=== PATIENT | female | born 1945 | race Caucasian/White ===

== ENCOUNTER 2017-01-06 10:58 | Emergency (ER) | payer OTHER ==
[~2017-01-06] VITALS: Ht 162.6 cm; Wt 65.6 kg
[~2017-01-06 10:58] MED LIST: ALBU0.08 INH; DEXL60CA4 PO; DILT180C PO; DSY100 PO; FERR325T PO; FRS/40 PO; GLIP-199 PO; LEVAAER2 INH; META1TAB22 PO; OXYB5TAB74 PO; PRAV40TA2 PO; PREG1CAP70 PO; RSTOPS OPB; SENN-65 PO; TRAM-10 PO; WARF1TAB6 PO
[2017-01-06 11:08] VITALS: TEMP 36.2; Ht 162.6 cm; Wt 65.6 kg
[2017-01-06] MEDS ORDERED: OMEP40CA41 PO (11:54)
[2017-01-06] MEDS ORDERED: ZOPENEX (11:54)
[2017-01-06 11:57] VITALS: O2SAT 98
[2017-01-06 11:59] LABS: BASO % 0.3 %; BASO ABS # 0.03 K/uL (0-0.2); COMPLETE YES; EOS % 0.9 %; HEMATOCRIT 48.1 % (37-47); IG% 0.3 %; LYMPH % 16.9 %; LYMPH ABS # 1.94 K/uL (1.2-3.4); MEAN CELL VOLUME 90.8 fL (80-100); MEAN CORPUSCULAR HEMOGLOBIN 32.3 pg (25-34); MEAN CORPUSCULAR HGB CONC 35.6 g/dl (32-36); MEAN PLATELET VOLUME 10.4 fL (7.4-10.4); MONO % 6.2 %; NEUT % 75.4 %; PLATELET COUNT 323 K/uL (130-400)
[2017-01-06 12:07] LABS: BUN/CREATININE RATIO 24.8 (10-20); CALCIUM 9.4 mg/dl (8.5-10.1); CREATININE 0.69 mg/dl (0.60-1.20); MAGNESIUM 2.1 mg/dl (1.8-2.4); POTASSIUM 3.9 mmol/L (3.5-5.1)
[2017-01-06 12:10] LABS: ALB/GLOB RATIO 1.1 (0.9-2); CKMB/CK RATIO 2.5 (0-3.0)
[2017-01-06] MEDS ORDERED: SODIUM CHLORIDE 0.9% 500ML 500 ML IV STA (12:14)
[2017-01-06] MEDS ORDERED: OPTIRAY 320 IV PRN (12:45)
--- NOTE | 2017-01-06 12:54 | DIAGNOSTIC IMAGING REPORT ---
ABDOMEN 2VIEW W/PA CHEST RTN CLINICAL HISTORY: Epigastric pain, hx pancreatitis pain COMPARISON STUDY: 07/30/2016 FINDINGS: Mild emphysematous change. No acute infiltrate. Pre-existing pulmonary bleb lateral aspect left upper lobe unchanged. Calcification lower pole left kidney unchanged. Postoperative changes low lumbar spine unchanged. Nonobstructive bowel pattern. IMPRESSION: No acute process of the abdomen or pelvis. Electronically signed by: Juan Mcguire M.D. 01/06/2017 12:52 PM Dictated Date/Time: 01/06/2017 12:51 PM
--- NOTE | 2017-01-06 13:12 | DIAGNOSTIC IMAGING REPORT ---
ABDOMEN AND PELVIS CT WITH IV CONTRAST CT DOSE: 285.90 mGy.cm HISTORY: Pain Epigastric abdominal pain TECHNIQUE: Multiaxial CT images of the abdomen and pelvis were performed following the use of intravenous contrast. COMPARISON STUDY: 06/30/2016 FINDINGS: Lung bases are clear. Liver is uniform throughout. Prior cholecystectomy. Graft slight prominence of the pancreatic duct at the level of pancreatic body and tail measuring up to 3.4 mm. Trace peripancreatic infiltrative change. Several renal cortical cysts and a cortical scar is unchanged. Bowel pattern is nonobstructive throughout. Stable postoperative changes to low lumbar spine. Vascular by femoral graft within the anterior soft tissue pelvis appearing to be occluded. This is an unchanged chronic finding. Calcification of the abdominal and pelvic arterial vasculature is similar. IMPRESSION: 1. Stable postoperative changes within the lumbar spine and pelvis. 2. Subtle prominence of the pancreatic duct is mid and distal aspect with a trace amount of peripancreatic infiltrative change. 3. Correlation with pancreatic enzymes status is recommended to exclude low-grade/early pancreatitis. 4. Unchanged 11 millimeter calcification central left kidney Electronically signed by: Juan Mcguire M.D. 01/06/2017 1:11 PM Dictated Date/Time: 01/06/2017 1:06 PM
[2017-01-06 13:36] LABS: URINE APPEARANCE CLEAR (CLEAR); URINE BILIRUBIN NEG (NEG); URINE COLOR YELLOW; URINE NITRITE NEG (NEG); URINE SPECIFIC GRAVITY 1.034 (1.000-1.030); UROBILINOGEN NEG (NEG); ZZUR CULT IF INDIC CLEAN CATCH NO
[2017-01-06 13:39] LABS: MANUAL MICROSCOPIC REQUIRED? NO; REVIEW REQ? NO
[2017-01-06] MEDS ORDERED: OXYCODONE IR HOME PACK PO STA (14:40)
--- NOTE | 2017-01-06 14:42 | EMERGENCY ROOM VISIT NOTE ---
History First contact with patient: 11:35 Chief Complaint: ABDOMINAL PAIN Stated Complaint: PANCREATITIS Nursing Triage Summary: Patient reports upper left quadrant abd pain states it feels like the same pain she had when she was diagnosed with pancreatitis. Denies any n/v/d History of Present Illness The patient is a 71 year old female who presents to the Emergency Room via private vehicle accompanied by male with complaints of "pancreatitis". The patient states that she has a history of pancreatitis and notes that she has been experiencing epigastric pain for the past couple weeks in the upper abdomen. She notes this feels identical to her previous pancreatitis episodes. She has noticed swelling/putting in the epigastric region and increasing pain in the past few days. She rates her pain as a 6/10. She does have a history of 2 myocardial infarctions as well as stroke among other various comorbidities. She denies any chest pain, shortness of breath, nausea, vomiting , diarrhea, urinary symptoms, alcohol use. Review of Systems A complete 10-point Review of Systems was discussed with the patient, with pertinent positives and negatives listed in the History of Present Illness. All remaining Review of Systems questions can be considered negative unless otherwise specified. Past Medical/Surgical History Medical Problems: (1) Asthma (2) Chronic obstructive lung disease (3) Diabetes mellitus (4) GI bleed (5) TIA (transient ischemic attack) Family History Cancer Diabetes mellitus Gallbladder disease Heart disease Hypertension Social History Smoking Status: Current Every Day Smoker Alcohol Use: occasionally Drug Use: none Marital Status: Housing Status: lives with family Occupation Status: retired Current/Historical Medications Scheduled Aspirin (Aspirin), 325 MG PO QAM Canagliflozin (Invokana), 100 MG PO DAILY Cyanocobalamin (Vitamin B-12), 1,000 MCG PO DAILY Diltiazem Hcl Coated Beads (Diltiazem Hcl Er), 180 MG PO BID Ferrous Sulfate (Ferrous Sulfate), 650 MG PO DAILY Glipizide (Glipizide Er), 20 MG PO DAILY Hydralazine Hcl (Apresoline), 25 MG PO BID Labetalol HCl (Labetalol HCl), 100 MG PO BID Omeprazole (Prilosec), 40 MG PO DAILY Pravastatin Sodium (Pravastatin Sodium), 40 MG PO QPM Pregabalin (Lyrica), 150 MG PO BID Trazodone HCl (Trazodone HCl), 50 MG PO HS Warfarin Sod (Jantoven), 6 MG PO SATURDAY Warfarin Sod (Novtoven), 4 MG PO 6XWK Scheduled PRN Cyclosporine (Ophth) (Restasis), 1 DROP OP BID PRN for DRYNESS Diphenoxylate/Atropine (Lomotil 2.5-0.025 mg), 2 TAB PO QID PRN for PRN Furosemide (Lasix), 40 MG PO DAILY PRN for fluid retention Ipratropium-Albuterol (Combivent Respimat), 1 PUFF INH QID PRN for Shortness of Breath Lorazepam (Lorazepam), 0.5 MG PO DAILY PRN for Anxiety Meclizine Hcl (Meclizine Hcl), 25 MG PO DAILY PRN for Dizziness or Vertigo Nitroglycerin (Nitrostat), 0.4 MG UT UD PRN for Chest Pain Oxybutynin Chloride (Ditropan), 5 MG PO PRN PRN for Bladder Pain Senna (Senokot), 2-3 TAB PO DAILY PRN for PRN Tramadol (Ultram), 100 MG PO Q6H PRN for Pain [Zopenex Hfa], Unknown Dose for SOB/Wheezing Allergies Coded Allergies: Calcium Carbonate (Verified Allergy, Intermediate, OYSTER SHELL-ITCHY, HIVES, 01/06/17) Nylon (Verified Allergy, Intermediate, HIVES, 01/06/17) Adhesives (Verified Allergy, Mild, RED ITCHY RASH, NYLON = ITCHY, 01/06/17) Animal Dander (Verified Allergy, Unknown, ASTHMA, 01/06/17) Calcium (Verified Allergy, Unknown, ITCHY, 01/06/17) Montelukast (Verified Allergy, Unknown, ., 01/06/17) Phenobarbital (Verified Allergy, Unknown, DOESN'T REMEMBER WHAT HAPPENED, 01/06/17) Shellfish (Verified Allergy, Unknown, ., 01/06/17) Sulfa Antibiotics (Verified Allergy, Unknown, HIVES/RASH TO SULFA DRUGS, ) Egg (Verified Adverse Reaction, Unknown, SORE THROAT, 01/06/17) Uncoded Allergies: METAL (Adverse Reaction, Intermediate, itchy raw skin burning, 10/29/16) Physical Exam Vital Signs Date Time Temp Pulse Resp B/P Pulse Ox O2 Delivery O2 Flow Rate FiO2 01/06/17 15:29 78 20 134/79 98 Room Air 01/06/17 15:00 72 16 149/72 96 01/06/17 13:05 74 18 149/80 98 Room Air 01/06/17 11:57 98 Room Air 01/06/17 11:08 36.2 73 16 131/80 94 Room Air Physical Exam VITAL SIGNS - Vital signs and nursing notes were reviewed. Patient is afebrile , normotensive, non-tachycardic and saturating well on room air at 94%. GENERAL -71-year-old female appearing her stated age who is in no acute distress. Communicates well with provider and answers questions appropriately. SKIN - Without rashes. HEAD - NC/AT. EYES -PERRL with EOMI bilaterally. Sclera anicteric. Palpebral conjunctiva pink and moist with no injection noted. MOUTH/OROPHARYNX - Without perioral cyanosis. NECK - Neck with FROM. Supple to palpation. No lymphadenopathy noted. No nuchal rigidity. LUNGS - Chest wall symmetric without accessory muscle use, intercostals retractions, or central cyanosis. Normal vesicular breath sounds CTA B/L. No wheezes, rales, or rhonchi appreciated. CARDIAC - RRR with S1/S2. No murmur, rubs, or gallops appreciated. ABDOMEN - Abdominal contour without pulsations or visible masses. BS normoactive all four quadrants. There is pinpoint tenderness to palpation of the epigastric region. No palpable masses, hepatosplenomegaly, or ascites noted. EXTREMITIES - No clubbing or peripheral cyanosis. No pretibial edema present. +5 /5 strength noted in UE/LE bilaterally. Medical Decision & Procedures ER Provider Diagnostic Interpretation: ABDOMEN AND PELVIS CT WITH IV CONTRAST CT DOSE: 285.90 mGy.cm HISTORY: Pain Epigastric abdominal pain TECHNIQUE: Multiaxial CT images of the abdomen and pelvis were performed following the use of intravenous contrast. COMPARISON STUDY: 06/30/2016 FINDINGS: Lung bases are clear. Liver is uniform throughout. Prior cholecystectomy. Graft slight prominence of the pancreatic duct at the level of pancreatic body and tail measuring up to 3.4 mm. Trace peripancreatic infiltrative change. Several renal cortical cysts and a cortical scar is unchanged. Bowel pattern is nonobstructive throughout. Stable postoperative changes to low lumbar spine. Vascular by femoral graft within the anterior soft tissue pelvis appearing to be occluded. This is an unchanged chronic finding. Calcification of the abdominal and pelvic arterial vasculature is similar. IMPRESSION: 1. Stable postoperative changes within the lumbar spine and pelvis. 2. Subtle prominence of the pancreatic duct is mid and distal aspect with a trace amount of peripancreatic infiltrative change. 3. Correlation with pancreatic enzymes status is recommended to exclude low-grade/early pancreatitis. 4. Unchanged 11 millimeter calcification central left kidney Electronically signed by: Juan Mcguire M.D. 01/06/2017 1:11 PM Dictated Date/Time: 01/06/2017 1:06 PM ABDOMEN 2VIEW W/PA CHEST RTN CLINICAL HISTORY: Epigastric pain, hx pancreatitis pain COMPARISON STUDY: 07/30/2016 FINDINGS: Mild emphysematous change. No acute infiltrate. Pre-existing pulmonary bleb lateral aspect left upper lobe unchanged. Calcification lower pole left kidney unchanged. Postoperative changes low lumbar spine unchanged. Nonobstructive bowel pattern. IMPRESSION: No acute process of the abdomen or pelvis. Electronically signed by: Juan Mcguire M.D. 01/06/2017 12:52 PM Dictated Date/Time: 01/06/2017 12:51 PM Laboratory Results 01/06/17 11:30 Red Blood Count 5.30, Mean Corpuscular Volume 90.8, Mean Corpuscular Hemoglobin 32.3, Mean Corpuscular Hemoglobin Concent 35.6, Mean Platelet Volume 10.4, Neutrophils (%) (Auto) 75.4, Lymphocytes (%) (Auto) 16.9, Monocytes (%) (Auto) 6.2, Eosinophils (%) (Auto) 0.9, Basophils (%) (Auto) 0.3, Neutrophils # (Auto) 8.69, Lymphocytes # (Auto) 1.94, Monocytes # (Auto) 0.71, Eosinophils # (Auto) 0.10, Basophils # (Auto) 0.03 01/06/17 11:30 Test 01/06/17 11:30 01/06/17 13:18 01/06/17 14:06 White Blood Count 11.50 K/uL (4.8-10.8) Red Blood Count 5.30 M/uL (4.2-5.4) Hemoglobin 17.1 g/dL (12.0-16.0) Hematocrit 48.1 % (37-47) Mean Corpuscular Volume 90.8 fL (80-100) Mean Corpuscular Hemoglobin 32.3 pg (25-34) Mean Corpuscular Hemoglobin Concent 35.6 g/dl (32-36) Platelet Count 323 K/uL (130-400) Mean Platelet Volume 10.4 fL (7.4-10.4) Neutrophils (%) (Auto) 75.4 % Lymphocytes (%) (Auto) 16.9 % Monocytes (%) (Auto) 6.2 % Eosinophils (%) (Auto) 0.9 % Basophils (%) (Auto) 0.3 % Neutrophils # (Auto) 8.69 K/uL (1.4-6.5) Lymphocytes # (Auto) 1.94 K/uL (1.2-3.4) Monocytes # (Auto) 0.71 K/uL (0.11-0.59) Eosinophils # (Auto) 0.10 K/uL (0-0.5) Basophils # (Auto) 0.03 K/uL (0-0.2) RDW Standard Deviation 43.6 fL (36.4-46.3) RDW Coefficient of Variation 13.4 % (11.5-14.5) Immature Granulocyte % (Auto) 0.3 % Immature Granulocyte # (Auto) 0.03 K/uL (0.00-0.02) Anion Gap 13.0 mmol/L (3-11) Est Creatinine Clear Calc Drug Dose 63.7 ml/min Estimated GFR () 100.8 Estimated GFR (Non- 87.0 BUN/Creatinine Ratio 24.8 (10-20) Calcium Level 9.4 mg/dl (8.5-10.1) Magnesium Level 2.1 mg/dl (1.8-2.4) Total Bilirubin 0.4 mg/dl (0.2-1) Aspartate Amino Transf (AST/SGOT) 17 U/L (15-37) Alanine Aminotransferase (ALT/SGPT) 31 U/L (12-78) Alkaline Phosphatase 99 U/L (45-117) Total Creatine Kinase 108 U/L (26-192) Creatine Kinase MB 2.7 ng/ml (0.5-3.6) Creatine Kinase MB Ratio 2.5 (0-3.0) Pro-B-Type Natriuretic Peptide 181 pg/ml (0-900) Total Protein 7.7 gm/dl (6.4-8.2) Albumin 4.1 gm/dl (3.4-5.0) Globulin 3.6 gm/dl (2.5-4.0) Albumin/Globulin Ratio 1.1 (0.9-2) Amylase Level 41 U/L (25-115) Lipase 294 U/L (73-393) Urine Color YELLOW Urine Appearance CLEAR (CLEAR) Urine pH 5.0 (4.5-7.5) Urine Specific [place] 1.034 (1.000-1.030) Urine Protein NEG (NEG) Urine Glucose (UA) 3+ (NEG) Urine Ketones NEG (NEG) Urine Occult Blood NEG (NEG) Urine Nitrite NEG (NEG) Urine Bilirubin NEG (NEG) Urine Urobilinogen NEG (NEG) Urine Leukocyte Esterase NEG (NEG) Bedside Troponin I 0.000 ng/ml (0-0.045) Medications Administered Medications (Trade) Dose Ordered Sig/Mila Route Start Time Stop Time Status Last Admin Dose Admin Sodium Chloride (Nss 500ml) 500 ml @ 500 mls/hr Q1H STAT IV 01/06/17 12:14 01/06/17 13:13 DC 01/06/17 12:14 500 MLS/HR Oxycodone HCl (Roxicodone Immediate Rel 5MG Home Pack) 1 homepack UD STAT PO 01/06/17 14:40 01/06/17 14:41 DC 01/06/17 14:40 1 HOMEPACK Medical Decision Patient was seen and evaluated as above. After obtaining a thorough history and physical examination the above workup was completed. There was concern for cardiac etiologies given her prior history. Initial troponin was negative. EKG revealed normal sinus rhythm rate of 61 bpm without ectopy or ischemic changes. When compared to previous no significant change was noted. Patient was hydrated with 500 and also normal saline. Radiograph of the abdomen and chest did not reveal any acute process. Stable changes. Case was discussed with my attending and the decision was made to obtain a CT scan of the abdomen and pelvis. This revealed a potential early pancreatitis which clinically correlates with the patient's symptoms. Troponin was repeated and found to be 0 again. EKG was repeated and this didn't change was noted as there is a normal sinus rhythm, rate of 65 bpm without ectopy or ischemic change. The patient most likely is expected pancreatitis, however she was educated there are other etiologies. She was offered admission for this finding declined doing that she could manage this at home. She was also personally evaluated with my attending. The patient seemed well educated upon management of pancreatitis. There is minimal leukocytosis of 11.5, slight anemia. Anion gap Elevated at 13, with No Evidence of Kidney or Liver Failure. Lipase and Amylase Were within Normal Limits. BNP Was within Normal Limits. Troponin Was Negative 2. Urine Was Negative for Infection but There Was 3+ Glucose. Patient Notes That She Experiences Elevated Glucose Levels with Pancreatitis. The Patient Was Offered Admission by Both Myself and My Attending but Declined That She Would like to Go Home. This will be respected. The patient was educated upon management of her symptoms and instructed to follow-up with her family doctor by calling them worsening tomorrow morning to schedule follow-up. She is to follow up as soon as possible. She is to return with any worsening of her symptoms. She was educated upon management of today's findings. She was educated upon worrisome symptoms in which to return, had questions answered prior to discharge and was discharged home in good condition. In the evaluation and treatment of this patient following differential diagnoses were entertained: Pancreatitis, IL, PE, reflux, perforated abdominal organ, gastritis, among others. Impression Primary Impression: Pancreatitis Departure Information Dispostion Home / Self-Care Condition GOOD Referrals No Doctor, Assigned (PCP) Patient Instructions My [facility] Additional Instructions You were seen in the emergency department for what we believe is pancreatitis. You have respectfully declined admission, and indicated that you would like to manage this at home. Please drink plenty of fluids such as water and Gatorade and slowly progress your diet from soft foods to regular diet. You have been given a home pack for OxyIR and indicated that you have a prescription to car pick up driver at her pharmacy for oxycodone. Please take one tablet every 6 hours as needed for your pain. Please have basic labs repeated with her family doctor such as a CBC and CMP. Please return to the emergency department with any new/concerning symptoms. Problem Qualifiers Primary Impression: Pancreatitis Chronicity: acute Pancreatitis type: unspecified pancreatitis type Acute pancreatitis complication: unspecified Qualified Codes: K85.90 - Acute pancreatitis without necrosis or infection, unspecified
[2017-01-06 15:29] VITALS: BP 134/79; PULSE 78; O2SAT 98
--- NOTE | 2017-01-06 20:52 | EMERGENCY ROOM VISIT NOTE ---
ED Visit Note First contact with patient: 11:35 The patient was seen and examined with Anderson Thornton PA-C. I agree with the history, physical and findings. Please see the note for disposition and details. The patient has mild pancreatitis by history and CAT scan. The patient was offered admission due to her discomfort and situation. The patient declined. I did discuss this with the patient as did Anderson. The patient does not want to be admitted to the hospital. I did discuss the concerns due to her pain and pancreatitis. Other etiologies are also possible. I did discuss that pancreatitis can be life-threatening. The patient indicated her understanding. If she worsens in any way she will come back to the emergency department for reevaluation. I did ask her follow-up closely as an outpatient. I gave my usual and customary discussion regarding this issue.
[2017-04-09] MEDS ORDERED: OMEP20TA PO (12:08)
[2017-04-09] MEDS ORDERED: ENOX60IN SQ (12:08)
[2017-04-09] MEDS ORDERED: CRDCD/180 PO (12:08)
[2017-04-09] MEDS ORDERED: VALA1TAB2 PO (12:08)
[2017-04-09] MEDS ORDERED: OXYC15TA89 PO (12:08)
[2017-04-09] MEDS ORDERED: PRAV80TA2 PO (12:08)
[2017-04-09] MEDS ORDERED: EZET10TA63 PO (12:08)
[2017-04-26] MEDS ORDERED: WARF4TAB8 PO ×2 (09:15→20:01)
[2017-04-26] MEDS ORDERED: DPH/ PO (11:54)
[2017-04-26] MEDS ORDERED: SENN-61 PO (11:54)
[2017-04-26] MEDS ORDERED: CYCL0.052 OP (11:54)
[2017-04-26] MEDS ORDERED: CANA1TAB PO (11:54)
[2017-04-26] MEDS ORDERED: FLUT0.15 NAE (12:08)
[2017-04-26] MEDS ORDERED: ONDA8TAB6 PO (12:08)
[2017-04-26] MEDS ORDERED: FURO20TA PO (12:08)
[2017-04-26] MEDS ORDERED: LEVA45AE INH (12:08)
[2017-06-19] MEDS ORDERED: CYM/30 PO (07:10)
[2017-07-29] MEDS ORDERED: OXYC1TAB3 PO (13:26)
[2017-08-04] MEDS ORDERED: PREG1CAP70 PO (12:09)
[2017-08-04] MEDS ORDERED: IPRA1AER2 INH (14:46)
[2017-08-04] MEDS ORDERED: VALA1TAB31 PO (15:32)
[2017-08-04] MEDS ORDERED: OMEP20CA9 PO (15:32)
[2017-08-04] MEDS ORDERED: DTR5 PO (15:32)
[2017-08-04] MEDS ORDERED: TRAZ100T29 PO (15:39)
== END 2017-01-06 15:00 | disposition home or self-care (01) ==
LOC: C.EDB 11:00
DX: K85.90 Acute pancreatitis without necrosis or infection, unspecified (principal); F17.200 Nicotine dependence, unspecified, uncomplicated; J45.909 Unspecified asthma, uncomplicated; J44.9 Chronic obstructive pulmonary disease, unspecified; E11.9 Type 2 diabetes mellitus without complications; Z86.73 Personal history of transient ischemic attack (TIA), and cerebral infarction without residual deficits; Z79.82 Long term (current) use of aspirin; Z79.01 Long term (current) use of anticoagulants; Z80.9 Family history of malignant neoplasm, unspecified; Z83.3 Family history of diabetes mellitus; Z82.49 Family history of ischemic heart disease and other diseases of the circulatory system

== ENCOUNTER → 2017-02-08 | Outpatient (CLI) | payer OTHER ==
[~2017-02-08] MED LIST changes: -ALBU0.08 INH; +APR25 PO; +ASPI325T45 PO; +ATV5X PO; +CANA1TAB PO; +CRDCD/180 PO; +CYAN10005 PO; +CYCL0.052 OP; +CYCL0.052 OPB; +CYM/30 PO; +CYM60 PO; -DEXL60CA4 PO; +DILT-113 PO; +DILT120C99 PO; +DILT180C50 PO; +DOXE10CA PO; +DPH/ PO; +DTR5 PO; +DULO60CA44 PO; +ENOX60IN SQ; +EZET10TA63 PO; +FLUT0.15 NAE; +FURO20TA PO; +GLCSR10 PO; +GLIP1TAB85 PO; +INSDGI SC; +INSDGIPEN SC; +IPRA1AER2 INH; +LBT/100 PO; +LBT100 PO; +LEVA45AE INH; -LEVAAER2 INH; +LEVO-366 PO; +LINA1CAP PO; +LINA72CA PO; +LINACLOTIDE PO; +LPT40 PO; +MECL1TAB42 PO; -META1TAB22 PO; +METF500T5 PO; +NITR1CAP32 PO; +NTRGSL/4 UT; +NVLGI/PEN SQ; +OMEP20CA9 PO; +OMEP20TA PO; +OMEP40CA41 PO; +ONDA8TAB6 PO; +OXY/15 PO; +OXYC-164 PO; +OXYC15TA89 PO; +OXYC1TAB3 PO; +PRAV80TA2 PO; +PRED20TA PO; +PREG1CAP34 PO; -RSTOPS OPB; +SENN-61 PO; -SENN-65 PO; +TRAZ100T29 PO; +ULT50 PO; +VALA1TAB2 PO; +VALA1TAB31 PO; -WARF1TAB6 PO; +WARF4TAB8 PO; +ZOPENEX; +ZTA10 PO
--- NOTE | 2017-02-08 12:22 | DIAGNOSTIC IMAGING REPORT ---
MRCP HISTORY: Nausea. Epigastric abdominal pain. PANCREATITIS TECHNIQUE: MRCP of the abdomen was performed according to standard department protocol without the use of intravenous contrast. COMPARISON STUDY: Abdomen and pelvis CT 01/06/2017. FINDINGS: The lung bases are clear. Mild central intrahepatic bile duct dilatation, unchanged. The gallbladder is surgically absent. The common bile duct measures up to 8 mm. This is likely due to the postcholecystectomy state. There are no filling defects seen within the common bile duct. Bilateral renal T2 hyperintense lesions likely represent cysts. Dominant lesion within the left kidney measures 1.9 cm. These remain unchanged. There is a 1 cm left renal stone. No hydronephrosis. No retroperitoneal lymphadenopathy. Posterior fusion hardware within the lumbar spine. The spleen and adrenal glands are unremarkable. Best seen on image 10 of 23 of the axial FIESTA sequences, there is mild inflammatory change surrounding the junction of the pancreatic tail/body. This consistent with acute pancreatitis. This has slightly improved. The pancreatic duct is not dilated. However, there are multifocal areas of mild narrowing within the pancreatic duct suggestive of mild strictures. There are few prominent pancreatic acini at the pancreatic tail. This likely represents the acute on chronic pancreatitis. IMPRESSION: 1. There is mild inflammatory change surrounding the junction of the pancreatic tail/body. This consistent with acute pancreatitis. This has slightly improved. 2. The pancreatic duct is not dilated. However, there are multifocal areas of mild narrowing within the pancreatic duct suggestive of mild strictures. There are few prominent pancreatic acini at the pancreatic tail. These findings likely represent sequela of acute on chronic pancreatitis. 3. Mild intra and extra hepatic bile duct dilatation is likely due to the patient's postcholecystectomy state. Electronically signed by: Melo Silva M.D. 02/08/2017 12:20 PM Dictated Date/Time: 02/08/2017 12:09 PM
== END | disposition home or self-care (01) ==
LOC: C.MRI 10:34
PROVIDERS: ATTEND Internal Medicine Gastroenterology
DX: K85.90 Acute pancreatitis without necrosis or infection, unspecified (principal)

== ENCOUNTER → 2017-04-11 | Day surgery (SDC) | payer OTHER ==
[2017-04-09 12:14] VITALS: Ht 162.6 cm; Wt 55.5 kg
[~2017-04-11] VITALS: Ht 162.6 cm; Wt 55.5 kg
[~2017-04-11] MED LIST changes: +ATROPINE SULFATE 0.1 MG/ML 5ML SYR IV PRN; -DILT180C PO; +DTR/5 PO; +EpHEDrine SULFATE INJ 50 MG/ML AMP IV PRN; -FERR325T PO; -FRS/40 PO; +LIDOCAINE HCL 2% 2 ML VIAL (20MG/ML) ONE; -OMEP40CA41 PO; -OXYB5TAB74 PO; +PROPOFOL IV EMULSION 10 MG/ML 20 ML VIAL IV ONE; +SODIUM CHLORIDE 0.9% 500ML 500 ML IV ONE; -ZOPENEX
--- NOTE | 2017-04-11 12:51 | Endo History and Physical ---
History & Physical Date of Service: April 11, 2017. Chief Complaint: Referring Physician: History of Present Illness epigastric pain Past Medical History Diabetes, Arthritis, Asthma, Gastrointestinal Disorder, Anxiety, Reflux, High Cholesterol, Hypertension, Thrombophlebitis, COPD, CVA/TIA, [place] Past Surgical History Hx Cardiac Surgery: No Hx Internal Defibrillator: No Hx Pacemaker: No Hx Abdominal Surgery: Yes (FELA, PARTIAL HYSTER) Hx of Implantable Prosthesis: No Hx Post-Op Nausea and Vomiting: No Hx Cancer Surgery: No Hx Thoracic Surgery: Yes (NUMEROUS LOWER BACK FUSIONS AND DISCECTOMIES, CERVICAL SPINE (DOWN AND LEFT)) Hx Orthopedic: No Hx Urinary Tract Surgery: No Family History None Social History Smoking Status: Current Every Day Smoker Hx Substance Use: No Hx Alcohol Use: No Allergies Coded Allergies: Calcium Carbonate (Verified Allergy, Intermediate, OYSTER SHELL-ITCHY, HIVES, 04/09/17) Nylon (Verified Allergy, Intermediate, HIVES, 04/09/17) Adhesives (Verified Allergy, Mild, RED ITCHY RASH, NYLON = ITCHY, 04/09/17) Animal Dander (Verified Allergy, Unknown, ASTHMA, 04/09/17) Calcium (Verified Allergy, Unknown, ITCHY, 04/09/17) Montelukast (Verified Allergy, Unknown, ., 04/09/17) Phenobarbital (Verified Allergy, Unknown, DOESN'T REMEMBER WHAT HAPPENED, 04/09/17) Shellfish (Verified Allergy, Unknown, HIVES, 04/09/17) Sulfa Antibiotics (Verified Allergy, Unknown, HIVES/RASH TO SULFA DRUGS, ) Egg (Verified Adverse Reaction, Unknown, SORE THROAT, 04/09/17) Uncoded Allergies: METAL (Adverse Reaction, Intermediate, itchy raw skin burning, 10/29/16) Current Medications Reported Home Medications Medications Dose Route/Sig Max Daily Dose Days Date Category Dose Instructions Lyrica (Pregabalin) 150 Mg Cap 150 Mg PO BID 04/09/17 Reported Valtrex (Valacyclovir Hcl) 1 Gm Tab 2 Tabs PO Q12 PRN 04/09/17 Reported Oxycontin (Oxycodone Hcl) 15 Mg Tab 0.5 Tab PO Q6H 04/09/17 Reported Zetia (Ezetimibe) 10 Mg Tab 10 Mg PO QPM 04/09/17 Reported Zofran (Ondansetron HCl) 8 Mg Tab 8 Mg PO DAILY PRN 04/09/17 Reported Levalbuterol Tartrate Hfa (Levalbuterol Tartrate) 45 Mcg/Act Aer 2 Sprays INH Q4H PRN 04/09/17 Reported Lovenox (Enoxaparin Sodium) 60 Mg/0.6 Ml Inj 60 Mg SQ BID UD 04/09/17 Reported Flonase Allergy Relief (Fluticasone Propionate (Nasal)) 50 Mcg/Act Spr 2 Sprays DARRYL DAILY PRN 04/09/17 Reported Cardizem Cd (Diltiazem Hcl Coated Beads) 180 Mg Cap 180 Mg PO QPM 04/09/17 Reported Omeprazole 20 Mg Tab 1 Tab PO QPM 04/09/17 Reported Lasix (Furosemide) 20 Mg Tab 20 Mg PO DAILY PRN 04/09/17 Reported Pravastatin Sodium 80 Mg Tab 1 Tab PO QPM 04/09/17 Reported Invokana (Canagliflozin) 100 Mg Tab 100 Mg PO QPM 01/06/17 Reported Senokot (Senna) 8.6 Mg Tab 5 Tabs PO QPM 01/06/17 Reported Lomotil 2.5-0.025 mg (Diphenoxylate HCl/Atropine) 1 Ea Tab 2 Tab PO QID PRN 01/06/17 Reported Restasis (Cyclosporine (Ophth)) 0.05 % Emu 1 Drop OP BID PRN 01/06/17 Reported Jantoven (Warfarin Sodium) 4 Mg Tab 4 Mg PO ON HOLD 10/29/16 Reported EXCEPT SATURDAY Glipizide Er (Glipizide) 10 Mg Tab 2 Tabs PO QPM 07/30/16 Reported Vitamin B-12 (Cyanocobalamin) 1,000 Mcg Tab 1,000 Mcg PO DAILY 07/30/16 Reported Meclizine Hcl 25 Mg Tab 25 Mg PO DAILY PRN 07/30/16 Reported Labetalol HCl 100 Mg Tab 100 Mg PO BID 06/30/16 Reported Lorazepam 0.5 Mg Tab 0.5 Mg PO DAILY PRN 06/30/16 Reported Trazodone HCl 100 Mg Tab 100 Mg PO HS 06/30/16 Reported Jantoven (Warfarin Sodium) 4 Mg Tab 6 Mg PO Saturday06/30/16 Reported ON HOLD FOR PROCEDURE Aspirin 325 Mg Tab 325 Mg PO QPM 01/05/16 Reported Ultram (Tramadol HCl) 50 Mg Tab 100 Mg PO Q6H PRN 12/12/15 Reported Ditropan (Oxybutynin Chloride) 5 Mg Tab 5 Mg PO PRN PRN 08/28/13 Reported Nitrostat (Nitroglycerin) 0.4 Mg Tab 0.4 Mg UT UD PRN 08/28/13 Reported Combivent Respimat (Ipratropium-Albuterol) 1 Aer Aer 1 Puff INH QID PRN 08/28/13 Reported Apresoline (Hydralazine Hcl) 25 Mg Tab 25 Mg PO BID-TID 03/04/12 Reported Vital Signs Weight (Kilograms): 55.45 Height (Feet): 5 Height (Inches): 4 Physical Exam AAOx3 Nls1s2 Lungs CTA Abd soft NT/ND + BS - CCE Assessment and Plan EGD with possible biopsy/dilation as needed
--- NOTE | 2017-04-11 13:36 | GI REPORT ---
Procedure Date: 04/11/2017 1:16 PM Procedure: Upper GI endoscopy Indications: Epigastric abdominal pain Medicines: Propofol per Anesthesia Complications: No immediate complications. Estimated blood loss: Minimal. Estimated Blood Loss: Estimated blood loss was minimal. Procedure: Pre-Anesthesia Assessment: - Prior to the procedure, a History and Physical was performed, and patient medications and allergies were reviewed. The patient's tolerance of previous anesthesia was also reviewed. The risks and benefits of the procedure and the sedation options and risks were discussed with the patient. All questions were answered, and informed consent was obtained. Prior Anticoagulants: The patient has taken Lovenox (enoxaparin), last dose was 1 day prior to procedure. ASA Grade Assessment: III - A patient with severe systemic disease. After reviewing the risks and benefits, the patient was deemed in satisfactory condition to undergo the procedure. After obtaining informed consent, the endoscope was passed under direct vision. Throughout the procedure, the patient's blood pressure, pulse, and oxygen saturations were monitored continuously. The scope was introduced through the mouth, and advanced to the second part of duodenum. The upper GI endoscopy was accomplished without difficulty. The patient tolerated the procedure well. Findings: The upper third of the esophagus and middle third of the esophagus were normal. LA Grade B (one or more mucosal breaks greater than 5 mm, not extending between the tops of two mucosal folds) esophagitis with no bleeding was found 38 to 40 cm from the incisors. Patchy moderate inflammation characterized by erosions and erythema was found on the greater curvature of the stomach, on the lesser curvature of the stomach, in the gastric antrum and in the prepyloric region of the stomach. Biopsies were taken with a cold forceps for histology. The examined duodenum was normal. Retained gastric contents are not identified on this exam. The cardia and gastric fundus were normal on retroflexion. Impression: - Normal upper third of esophagus and middle third of esophagus. - LA Grade B reflux esophagitis. - Gastritis. Biopsied. - Normal examined duodenum. Recommendation: - Discharge patient to home (ambulatory). - Return to GI clinic as previously scheduled. - Continue present medications. - Await pathology results. MD Dandre Mckeon MD 04/11/2017 1:35:43 PM This report has been signed electronically. Note Initiated On: 04/11/2017 1:16 PM I attest to the content of the Intraoperative Record and orders documented therein, exceptions below
--- NOTE | 2017-04-11 13:56 | Anesthesiology Progress Note ---
Anesthesia Post Op Note Date & Time April 11, 2017 at 13:56 Vital Signs Pain Intensity: 5 Vital Signs Past 12 Hours Date Time Temp Pulse Resp B/P Pulse Ox O2 Delivery O2 Flow Rate FiO2 04/11/17 12:54 36.6 77 20 112/42 95 Room Air Notes Mental Status: alert / awake / arousable, participated in evaluation Pt Amnestic to Procedure: Yes Nausea / Vomiting: adequately controlled Pain: adequately controlled Airway Patency, RR, SpO2: stable & adequate BP & HR: stable & adequate Hydration State: stable & adequate Anesthetic Complications: no major complications apparent
[2017-04-11 14:09] VITALS: BP 151/82; PULSE 76; O2SAT 95
--- NOTE | 2017-04-11 16:13 | Discharge Instructions ---
Endoscopy Patient Instructions Date / Procedure(s) Performed April 11, 2017. EGD Allergy Information Coded Allergies: Calcium Carbonate (Verified Allergy, Intermediate, OYSTER SHELL-ITCHY, HIVES, 04/09/17) Nylon (Verified Allergy, Intermediate, HIVES, 04/09/17) Adhesives (Verified Allergy, Mild, RED ITCHY RASH, NYLON = ITCHY, 04/09/17) Animal Dander (Verified Allergy, Unknown, ASTHMA, 04/09/17) Calcium (Verified Allergy, Unknown, ITCHY, 04/09/17) Montelukast (Verified Allergy, Unknown, ., 04/09/17) Phenobarbital (Verified Allergy, Unknown, DOESN'T REMEMBER WHAT HAPPENED, 04/09/17) Shellfish (Verified Allergy, Unknown, HIVES, 04/09/17) Sulfa Antibiotics (Verified Allergy, Unknown, HIVES/RASH TO SULFA DRUGS, ) Egg (Verified Adverse Reaction, Unknown, SORE THROAT, 04/09/17) Uncoded Allergies: METAL (Adverse Reaction, Intermediate, itchy raw skin burning, 10/29/16) Discharge Date / Findings April 11, 2017. prminant mucosa at incisura stomach. Uanble to lift. Multiple biopsies taken of region Medication Instructions Stopped Medication(s): last dose coumadin was Saturday,last dose Lovenox was 19:00 last night Restart Stopped Medication(s): Reported Home Medications Medications Dose Route/Sig Max Daily Dose Days Date Category Dose Instructions Lyrica (Pregabalin) 150 Mg Cap 150 Mg PO BID 04/09/17 Reported Valtrex (Valacyclovir Hcl) 1 Gm Tab 2 Tabs PO Q12 PRN 04/09/17 Reported Oxycontin (Oxycodone Hcl) 15 Mg Tab 0.5 Tab PO Q6H 04/09/17 Reported Zetia (Ezetimibe) 10 Mg Tab 10 Mg PO QPM 04/09/17 Reported Zofran (Ondansetron HCl) 8 Mg Tab 8 Mg PO DAILY PRN 04/09/17 Reported Levalbuterol Tartrate Hfa (Levalbuterol Tartrate) 45 Mcg/Act Aer 2 Sprays INH Q4H PRN 04/09/17 Reported Lovenox (Enoxaparin Sodium) 60 Mg/0.6 Ml Inj 60 Mg SQ BID UD 04/09/17 Reported Flonase Allergy Relief (Fluticasone Propionate (Nasal)) 50 Mcg/Act Spr 2 Sprays DARRYL DAILY PRN 04/09/17 Reported Cardizem Cd (Diltiazem Hcl Coated Beads) 180 Mg Cap 180 Mg PO QPM 04/09/17 Reported Omeprazole 20 Mg Tab 1 Tab PO QPM 04/09/17 Reported Lasix (Furosemide) 20 Mg Tab 20 Mg PO DAILY PRN 04/09/17 Reported Pravastatin Sodium 80 Mg Tab 1 Tab PO QPM 04/09/17 Reported Invokana (Canagliflozin) 100 Mg Tab 100 Mg PO QPM 01/06/17 Reported Senokot (Senna) 8.6 Mg Tab 5 Tabs PO QPM 01/06/17 Reported Lomotil 2.5-0.025 mg (Diphenoxylate HCl/Atropine) 1 Ea Tab 2 Tab PO QID PRN 01/06/17 Reported Restasis (Cyclosporine (Ophth)) 0.05 % Emu 1 Drop OP BID PRN 01/06/17 Reported Jantoven (Warfarin Sodium) 4 Mg Tab 4 Mg PO ON HOLD 10/29/16 Reported EXCEPT SATURDAY Glipizide Er (Glipizide) 10 Mg Tab 2 Tabs PO QPM 07/30/16 Reported Vitamin B-12 (Cyanocobalamin) 1,000 Mcg Tab 1,000 Mcg PO DAILY 07/30/16 Reported Meclizine Hcl 25 Mg Tab 25 Mg PO DAILY PRN 07/30/16 Reported Labetalol HCl 100 Mg Tab 100 Mg PO BID 06/30/16 Reported Lorazepam 0.5 Mg Tab 0.5 Mg PO DAILY PRN 06/30/16 Reported Trazodone HCl 100 Mg Tab 100 Mg PO HS 06/30/16 Reported Jantoven (Warfarin Sodium) 4 Mg Tab 6 Mg PO Saturday06/30/16 Reported ON HOLD FOR PROCEDURE Aspirin 325 Mg Tab 325 Mg PO QPM 01/05/16 Reported Ultram (Tramadol HCl) 50 Mg Tab 100 Mg PO Q6H PRN 12/12/15 Reported Ditropan (Oxybutynin Chloride) 5 Mg Tab 5 Mg PO PRN PRN 08/28/13 Reported Nitrostat (Nitroglycerin) 0.4 Mg Tab 0.4 Mg UT UD PRN 10/11/13 Reported Combivent Respimat (Ipratropium-Albuterol) 1 Aer Aer 1 Puff INH QID PRN 08/28/13 Reported Apresoline (Hydralazine Hcl) 25 Mg Tab 25 Mg PO BID-TID 03/04/12 Reported Reported Home Medications Medications Dose Route/Sig Max Daily Dose Days Date Category Dose Instructions Lyrica (Pregabalin) 150 Mg Cap 150 Mg PO BID 04/09/17 Reported Valtrex (Valacyclovir Hcl) 1 Gm Tab 2 Tabs PO Q12 PRN 04/09/17 Reported Oxycontin (Oxycodone Hcl) 15 Mg Tab 0.5 Tab PO Q6H 04/09/17 Reported Zetia (Ezetimibe) 10 Mg Tab 10 Mg PO QPM 04/09/17 Reported Zofran (Ondansetron HCl) 8 Mg Tab 8 Mg PO DAILY PRN 04/09/17 Reported Levalbuterol Tartrate Hfa (Levalbuterol Tartrate) 45 Mcg/Act Aer 2 Sprays INH Q4H PRN 04/09/17 Reported Lovenox (Enoxaparin Sodium) 60 Mg/0.6 Ml Inj 60 Mg SQ BID UD 04/09/17 Reported Flonase Allergy Relief (Fluticasone Propionate (Nasal)) 50 Mcg/Act Spr 2 Sprays DARRYL DAILY PRN 04/09/17 Reported Cardizem Cd (Diltiazem Hcl Coated Beads) 180 Mg Cap 180 Mg PO QPM 04/09/17 Reported Omeprazole 20 Mg Tab 1 Tab PO QPM 04/09/17 Reported Lasix (Furosemide) 20 Mg Tab 20 Mg PO DAILY PRN 04/09/17 Reported Pravastatin Sodium 80 Mg Tab 1 Tab PO QPM 04/09/17 Reported Invokana (Canagliflozin) 100 Mg Tab 100 Mg PO QPM 01/06/17 Reported Senokot (Senna) 8.6 Mg Tab 5 Tabs PO QPM 01/06/17 Reported Lomotil 2.5-0.025 mg (Diphenoxylate HCl/Atropine) 1 Ea Tab 2 Tab PO QID PRN 01/06/17 Reported Restasis (Cyclosporine (Ophth)) 0.05 % Emu 1 Drop OP BID PRN 01/06/17 Reported Jantoven (Warfarin Sodium) 4 Mg Tab 4 Mg PO ON HOLD 10/29/16 Reported EXCEPT WEDNESDAY Glipizide Er (Glipizide) 10 Mg Tab 2 Tabs PO QPM 07/30/16 Reported Vitamin B-12 (Cyanocobalamin) 1,000 Mcg Tab 1,000 Mcg PO DAILY 07/30/16 Reported Meclizine Hcl 25 Mg Tab 25 Mg PO DAILY PRN 07/30/16 Reported Labetalol HCl 100 Mg Tab 100 Mg PO BID 06/30/16 Reported Lorazepam 0.5 Mg Tab 0.5 Mg PO DAILY PRN 06/30/16 Reported Trazodone HCl 100 Mg Tab 100 Mg PO HS 06/30/16 Reported Jantoven (Warfarin Sodium) 4 Mg Tab 6 Mg PO Saturday06/30/16 Reported ON HOLD FOR PROCEDURE Aspirin 325 Mg Tab 325 Mg PO QPM 01/05/16 Reported Ultram (Tramadol HCl) 50 Mg Tab 100 Mg PO Q6H PRN 12/12/15 Reported Ditropan (Oxybutynin Chloride) 5 Mg Tab 5 Mg PO PRN PRN 08/28/13 Reported Nitrostat (Nitroglycerin) 0.4 Mg Tab 0.4 Mg UT UD PRN 08/28/13 Reported Combivent Respimat (Ipratropium-Albuterol) 1 Aer Aer 1 Puff INH QID PRN 08/28/13 Reported Apresoline (Hydralazine Hcl) 25 Mg Tab 25 Mg PO BID-TID 03/04/12 Reported Provider Instructions Activity Restrictions - No exercising or heavy lifting for 24 hours. - Do not drink alcohol the day of the procedure. - Do not drive a car or operate machinery until the day after the procedure. - Do not make any important decisions or sign important papers in 24 hours after the procedure. Following Day: - Return to full activity which may include returning to work/school. Diet Start your diet with liquids and light foods (jello, soup, juice, toast). Then eat your usual diet if not nauseated. Treatment For Common After Affects For mild abdominal pain, bloating, or excessive gas: - Rest - Eat lightly - Lie on right side Follow-Up Information Follow-up with Yin Higgins PA-C as scheduled Anesthesia Information What You Should Know You have had a procedure that required some medicine to reduce anxiety and discomfort. This treatment is called moderate sedation. After receiving the treatment, you may be sleepy, but you will be able to breathe on your own. The effects of the treatment may last for several hours. Follow these instructions along with Activity/Diet recommendations noted above: * Do NOT do anything where dizziness or clumsiness would be dangerous. * Rest quietly at home today, then you can be up and about tomorrow. * Have a responsible person stay with you the rest of today. * You may have had an I.V. today. If so, you may take the dressing off later today. Recommendations Call your doctor if: * Trouble breathing * Continuous vomiting for more than 24 hours * Temperature above 101 degrees * Severe abdominal pain or bloating * Pain not relieved by pain medicine ordered * There is increased drainage or redness from any incision * A large amount of rectal bleeding greater than 2-3 tablespoons. (If you had a polyp/s removed or have hemorrhoids, a small amount of blood - from the rectum is to be expected.) * You have any unanswered questions or concerns. IN THE EVENT OF A SERIOUS EMERGENCY, GO TO THE NEAREST EMERGENCY ROOM Your discharge instructions were prepared by provider Dandre Naik. Patient Instructions Signature Page Karey Pearson Patient (or Guardian) Signature/Date: I have read and understand the instructions given to me by my caregivers. Caregiver/RN/Doctor Signature/Date: The above-named patient and/or guardian has received patient instructions on this date. + Original Patient Signature Page (only) stays with chart. Please make copy for patient.
== END | disposition home or self-care (01) ==
LOC: C.GI 12:01
PROVIDERS: ATTEND Internal Medicine Gastroenterology
DX: R10.13 Epigastric pain (principal); K29.50 Unspecified chronic gastritis without bleeding; K21.0 Gastro-esophageal reflux disease with esophagitis; E11.9 Type 2 diabetes mellitus without complications; E78.00 Pure hypercholesterolemia, unspecified; J44.9 Chronic obstructive pulmonary disease, unspecified; F17.200 Nicotine dependence, unspecified, uncomplicated; I25.2 Old myocardial infarction; Z90.49 Acquired absence of other specified parts of digestive tract; Z90.710 Acquired absence of both cervix and uterus; I10 Essential (primary) hypertension; Z86.72 Personal history of thrombophlebitis; Z86.73 Personal history of transient ischemic attack (TIA), and cerebral infarction without residual deficits

== ENCOUNTER 2017-04-26 13:49 | Emergency (ER) | payer OTHER ==
[~2017-04-26] VITALS: Ht 162.6 cm; Wt 58.9 kg
[~2017-04-26 13:49] MED LIST changes: -APR25 PO; -ASPI325T45 PO; -ATROPINE SULFATE 0.1 MG/ML 5ML SYR IV PRN; -ATV5X PO; -CYAN10005 PO; -CYCL0.052 OPB; -CYM/30 PO; -CYM60 PO; -DILT-113 PO; -DILT120C99 PO; -DILT180C50 PO; -DOXE10CA PO; -DTR5 PO; -DULO60CA44 PO; -EpHEDrine SULFATE INJ 50 MG/ML AMP IV PRN; -GLCSR10 PO; -GLIP1TAB85 PO; -INSDGI SC; -INSDGIPEN SC; -IPRA1AER2 INH; -LBT/100 PO; -LBT100 PO; -LEVO-366 PO; -LIDOCAINE HCL 2% 2 ML VIAL (20MG/ML) ONE; -LINA1CAP PO; -LINA72CA PO; -LINACLOTIDE PO; -LPT40 PO; -MECL1TAB42 PO; -METF500T5 PO; -NITR1CAP32 PO; -NTRGSL/4 UT; -NVLGI/PEN SQ; -OMEP20CA9 PO; -OXY/15 PO; -OXYC-164 PO; -OXYC1TAB3 PO; -PRAV40TA2 PO; -PRED20TA PO; -PREG1CAP34 PO; -PREG1CAP70 PO; -PROPOFOL IV EMULSION 10 MG/ML 20 ML VIAL IV ONE; -SODIUM CHLORIDE 0.9% 500ML 500 ML IV ONE; -TRAZ100T29 PO; -ULT50 PO; -VALA1TAB31 PO; -ZTA10 PO
[2017-04-26 13:53] VITALS: TEMP 37; Ht 162.6 cm; Wt 58.9 kg
[2017-04-26 14:06] VITALS: O2SAT 95
[2017-04-26 14:40] LABS: BASO % 0.2 %; BASO ABS # 0.03 K/uL (0-0.2); COMPLETE YES; EOS % 0.7 %; HEMATOCRIT 41.4 % (37-47); IG% 0.2 %; LYMPH ABS # 1.71 K/uL (1.2-3.4); MEAN CELL VOLUME 91.4 fL (80-100); MEAN CORPUSCULAR HEMOGLOBIN 32.7 pg (25-34); MEAN CORPUSCULAR HGB CONC 35.7 g/dl (32-36); MEAN PLATELET VOLUME 10.1 fL (7.4-10.4); MONO % 8.9 %; PLATELET COUNT 320 K/uL (130-400); RED BLOOD COUNT 4.53 M/uL (4.2-5.4); WHITE BLOOD COUNT 12.18 K/uL (4.8-10.8)
[2017-04-26] MEDS ORDERED: ALBUT/IPRATROP 3MG/0.5MG NEB 3 ML VIAL INH STA (14:41)
[2017-04-26] MEDS ORDERED: METHYLPREDNISOLONE 125 MG VIAL IV STA (14:41)
[2017-04-26] MEDS ORDERED: NTRGSL/4 UT (14:50)
[2017-04-26 15:01] LABS: ALT/SGPT 26 U/L (12-78); BLOOD UREA NITROGEN 8 mg/dl (7-18); BUN/CREATININE RATIO 11.4 (10-20); CARBON DIOXIDE 29 mmol/L (21-32); CHLORIDE 105 mmol/L (98-107); CREATININE 0.66 mg/dl (0.60-1.20); GLUCOSE 222 mg/dl (70-99); POTASSIUM 2.8 mmol/L (3.5-5.1); SODIUM 142 mmol/L (136-145)
[2017-04-26 15:04] LABS: CALCIUM 8.8 mg/dl (8.5-10.1)
[2017-04-26] MEDS ORDERED: CYAN10005 PO (15:05)
[2017-04-26] MEDS ORDERED: MECL1TAB42 PO (15:05)
[2017-04-26 15:06] LABS: ALB/GLOB RATIO 0.8 (0.9-2); ALKALINE PHOSPHATASE 71 U/L (45-117); AST/SGOT 18 U/L (15-37); CKMB/CK RATIO 2.3 (0-3.0)
[2017-04-26 15:07] LABS: INR 3.5 (0.9-1.1); PARTIAL THROMBOPLASTIN RATIO 1.9; PROTHROMBIN TIME (PATIENT) 39.3 SECONDS (9.0-12.0)
[2017-04-26] MEDS ORDERED: PRAV40TA2 PO (15:32)
[2017-04-26] MEDS ORDERED: ULT50 PO (15:32)
[2017-04-26] MEDS ORDERED: DILT180C50 PO (15:32)
[2017-04-26] MEDS ORDERED: ZTA10 PO (15:32)
[2017-04-26] MEDS ORDERED: GLCSR10 PO (15:32)
[2017-04-26] MEDS ORDERED: OXY/15 PO (15:32)
[2017-04-26] MEDS ORDERED: INSDGIPEN SC (15:32)
--- NOTE | 2017-04-26 15:37 | DIAGNOSTIC IMAGING REPORT ---
CHEST ONE VIEW PORTABLE CLINICAL HISTORY: COUGH, HYPOXIA dyspnea COMPARISON STUDY: 01/06/2017 FINDINGS: Parenchymal infiltrate left base. Lungs otherwise appear clear. Diaphragms smooth. Calcifications are sharp. IMPRESSION: Infiltrate left base. Electronically signed by: Juan Mgcuire M.D. 04/26/2017 3:35 PM Dictated Date/Time: 04/26/2017 3:35 PM
[2017-04-26 16:09] LABS: MANUAL MICROSCOPIC REQUIRED? NO; REVIEW REQ? NO; URINE APPEARANCE CLEAR (CLEAR); URINE BILIRUBIN NEG (NEG); URINE COLOR YELLOW; URINE NITRITE NEG (NEG); URINE PH 6.5 (4.5-7.5); URINE SPECIFIC GRAVITY 1.036 (1.000-1.030); UROBILINOGEN NEG (NEG)
[2017-04-26] MEDS ORDERED: LEVAQUIN 750MG / 150ML D5W IV STA (16:40)
[2017-04-26] MEDS ORDERED: POTASSIUM CHLORIDE 10 MEQ TABCR PO STA ×2 (16:54→19:06)
[2017-04-26] MEDS ORDERED: POTASSIUM CHLORIDE 10 MEQ / 100ML WTR IV STA (16:54)
[2017-04-26 17:14] VITALS: BP 152/84; PULSE 87; O2SAT 93
--- NOTE | 2017-04-26 17:21 | History and Physical ---
History & Physical Date & Time of Service: Apr 26, 2017 at 17:19 Chief Complaint: Referred By Doctor, Oxygen Low Primary Care Physician: Yin Higgins PA-C History of Present Illness Source: patient, spouse A cough started a week ago. Patient went to [facility] (because it was a weekend), where the provided a prescription for oseltamivir but told patient only to fill it if nasal culture came back positive. Was never called to fill prescription. The physician did also prescribe Tessalon Perles, which did help the cough decrease in frequency for a bit, but symptoms acutely worsened 2 days later. 5 days ago, patient felt a lot worse, with cough was productive of smelly sputum , in large quantity. She denies blood in the sputum.The cough has been worse in the mornings, but is also waking the patient from sleep overnight. It has become so bad now, that she has not been able to smoke her regular pack per day , and only manages to smoke 5 cigarettes daily. She started to feel SOB 4 days ago, which has progressively worsened. She does have a history of asthma, but has not been on any inhalers for the last 3 years. She does not require home oxygen. Symptoms worse on exertion - sensation of throat closing, which is relieved by rest. In addition to cough and dyspnea, patient has been having alternating fevers and chills (Tmax at home 101.9) and she has felt physically very weak and extremely exhausted. She denies CP, nausea, diaphoresis, recent traveling/camping Past Medical/Surgical History Medical Problems: (1) Asthma Status: Chronic (2) Chronic obstructive lung disease Status: Chronic (3) Diabetes mellitus Status: Chronic Family History Cancer Diabetes mellitus Gallbladder disease Heart disease Hypertension Social History Smoking Status: Current Every Day Smoker Drug Use: none Marital Status: Housing status: lives with family Occupational Status: retired Immunizations History of Influenza Vaccine: Yes Influenza Vaccine Date: Aug 18, 2012 History of Tetanus Vaccine?: UNSURE OF DATE History of Pneumococcal: unsure of date Pneumococcal Date: April 01, 2003 History of Hepatitis B Vaccine: No Multi-Drug Resistant Organisms History of MDRO: No Allergies Coded Allergies: Calcium Carbonate (Verified Allergy, Intermediate, OYSTER SHELL-ITCHY, HIVES, 04/09/17) Nylon (Verified Allergy, Intermediate, HIVES, 04/09/17) Adhesives (Verified Allergy, Mild, RED ITCHY RASH, NYLON = ITCHY, 04/09/17) Animal Dander (Verified Allergy, Unknown, ASTHMA, 04/09/17) Calcium (Verified Allergy, Unknown, ITCHY, 04/09/17) Montelukast (Verified Allergy, Unknown, ., 04/09/17) Phenobarbital (Verified Allergy, Unknown, DOESN'T REMEMBER WHAT HAPPENED, 04/09/17) Shellfish (Verified Allergy, Unknown, HIVES, 04/09/17) Sulfa Antibiotics (Verified Allergy, Unknown, HIVES/RASH TO SULFA DRUGS, ) Egg (Verified Adverse Reaction, Unknown, SORE THROAT, 04/09/17) Uncoded Allergies: METAL (Adverse Reaction, Intermediate, itchy raw skin burning, 10/29/16) Home Medications Scheduled Aspirin (Aspirin), 325 MG PO DAILY Canagliflozin (Invokana), 100 MG PO QAM Cyanocobalamin (Vitamin B-12), 1,000 MCG PO HOLD Diltiazem Hcl Coated Beads (Cartia Xt), 180 MG PO BID Ezetimibe (Zetia), 10 MG PO QPM Glipizide (Glipizide ER), 20 MG PO QAM Hydralazine Hcl (Apresoline), 25 MG PO UD Insulin Glargine (Lantus Solostar), 12 UNITS SC QAM Labetalol HCl (Labetalol HCl), 100 MG PO BID Levofloxacin (Levaquin), 500 MG PO DAILY Omeprazole (Prilosec), 20 MG PO BID Oxycodone Hcl (Oxycodone Hcl), 7.5 MG PO Q6H Pravastatin Sodium (Pravastatin Sodium), 40 MG PO QPM Pregabalin (Lyrica), 150 MG PO BID Senna (Senokot), 43 MG PO QPM Trazodone Hcl (Trazodone), 100 MG PO HS Warfarin Sod (Jantoven), 4 MG PO Q2D Warfarin Sod (Jantoven), 6 MG PO Q2D Scheduled PRN Cyclosporine (Ophth) (Restasis), 1 DROP OP BID PRN for DRYNESS Diphenoxylate/Atropine (Lomotil 2.5-0.025 mg), 2 TABS PO QID PRN for Diarrhea Fluticasone Propionate (Nasal) (Flonase Allergy Relief), 2 SPRAYS DARRYL DAILY PRN for Allergy Symptoms Furosemide (Lasix), 20 MG PO DAILY PRN for Fluid Accumulation Ipratropium-Albuterol (Combivent Respimat), 1 PUFF INH QID PRN for Shortness of Breath Levalbuterol Tartrate (Levalbuterol Tartrate Hfa), 2 SPRAYS INH Q4H PRN for SOB/ Wheezing Lorazepam (Lorazepam), 0.5 MG PO BID PRN for Anxiety Meclizine Hcl (Meclizine Hcl), 25 MG PO DAILY PRN for Dizziness or Vertigo Nitroglycerin (Nitrostat), 0.4 MG UT UD PRN for Chest Pain Ondansetron Hcl (Zofran), 8 MG PO UD PRN for Nausea Oxybutynin Chloride (Oxybutynin Chloride), 5 MG PO UD PRN for Bladder pain Tramadol HCl (Tramadol HCl), 100 MG PO Q6H PRN for Pain Valacyclovir Hcl (Valtrex), 1 GM PO UD PRN for Cold Sores Review of Systems Constitutional: + fever, + chills, + weakness, + fatigue, No sweats, No weight loss Eyes: No worsening of vision, No eye pain, No redness, No discharge, No diplopia ENT: + nasal symptoms, + trouble swallowing (ongoing, follows Dr. Neves), + problem reported (abrasions from dentures), No hearing loss, No unusual epistaxis, No sore throat, No tinnitus Respiratory: + cough, + sputum, + wheezing, + dyspnea on exertion, No dyspnea at rest Cardiovascular: + edema (R leg - longstanding for last 1.5 years), + problem reported, No chest pain, No orthopnea, No PND, No claudication, No palpitations Abdomen: No pain, No nausea, No vomiting, No diarrhea, No constipation Musculoskeletal: + joint pain (longstanding), No muscle pain Genitourinary - Female: No dysuria, No hematuria Neurologic: + balance problems (long standing), No numbness/tingling Endocrine: + fatigue, No excessive thirst, No excessive urination Integumentary: No rash, No itch Allergic / Immunologic: No environmental allergies, No seasonal allergies, No pet sensitivities Physical Exam Vital Signs Date Time Temp Pulse Resp B/P (MAP) Pulse Ox O2 Delivery O2 Flow Rate FiO2 04/26/17 17:14 87 20 152/84 93 Nasal Cannula 2.0 04/26/17 16:03 114 22 172/84 91 Nasal Cannula 2.0 04/26/17 15:18 84 20 153/69 97 Nebulizer 7.0 04/26/17 14:06 95 Nasal Cannula 2.0 04/26/17 14:06 95 Nasal Cannula 2.0 04/26/17 14:02 95 04/26/17 13:53 37.0 88 22 135/56 89 Room Air General Appearance: WD/WN, no apparent distress Head: normocephalic, atraumatic Eyes: normal inspection ENT: hearing grossly normal, pharynx normal Neck: supple, no adenopathy, thyroid normal, no JVD Respiratory/Chest: no respiratory distress, no accessory muscle use, + decreased breath sounds (diffusely) Cardiovascular: regular rate, rhythm, no murmur, normal peripheral pulses Abdomen/GI: normal bowel sounds, non tender, soft, no organomegaly Extremities/Musculoskelatal: no calf tenderness, normal capillary refill, + swelling (R leg swollen compared to left - longstanding for the last year as per patient) Neurologic/Psych: alert, normal mood/affect, oriented x 3, + pertinent finding (Drop foot on left side) Skin: normal color, warm/dry, no rash Diagnostics Laboratory Results Results Past 24 Hours Test 04/26/17 14:10 04/26/17 14:50 04/26/17 15:15 Range/Units White Blood Count 12.18 4.8-10.8 K/uL Red Blood Count 4.53 4.2-5.4 M/uL Hemoglobin 14.8 12.0-16.0 g/dL Hematocrit 41.4 37-47 % Mean Corpuscular Volume 91.4 80-100 fL Mean Corpuscular Hemoglobin 32.7 25-34 pg Mean Corpuscular Hemoglobin Concent 35.7 32-36 g/dl Platelet Count 320 130-400 K/uL Mean Platelet Volume 10.1 7.4-10.4 fL Neutrophils (%) (Auto) 76.0 % Lymphocytes (%) (Auto) 14.0 % Monocytes (%) (Auto) 8.9 % Eosinophils (%) (Auto) 0.7 % Basophils (%) (Auto) 0.2 % Neutrophils # (Auto) 9.25 1.4-6.5 K/uL Lymphocytes # (Auto) 1.71 1.2-3.4 K/uL Monocytes # (Auto) 1.09 0.11-0.59 K/uL Eosinophils # (Auto) 0.08 0-0.5 K/uL Basophils # (Auto) 0.03 0-0.2 K/uL RDW Standard Deviation 43.8 36.4-46.3 fL RDW Coefficient of Variation 13.1 11.5-14.5 % Immature Granulocyte % (Auto) 0.2 % Immature Granulocyte # (Auto) 0.02 0.00-0.02 K/uL Prothrombin Time 39.3 9.0-12.0 SECONDS Prothromb Time International Ratio 3.5 0.9-1.1 Activated Partial Thromboplast Time 50.6 21.0-31.0 SECONDS Partial Thromboplastin Ratio 1.9 Sodium Level 142 136-145 mmol/L Potassium Level 2.8 3.5-5.1 mmol/L Chloride Level 105 98-107 mmol/L Carbon Dioxide Level 29 21-32 mmol/L Anion Gap 8.0 3-11 mmol/L Blood Urea Nitrogen 8 7-18 mg/dl Creatinine 0.66 0.60-1.20 mg/dl Est Creatinine Clear Calc Drug Dose 66.6 ml/min Estimated GFR () 102.3 Estimated GFR (Non- 88.3 BUN/Creatinine Ratio 11.4 10-20 Random Glucose 222 70-99 mg/dl Calcium Level 8.8 8.5-10.1 mg/dl Total Bilirubin 0.4 0.2-1 mg/dl Aspartate Amino Transf (AST/SGOT) 18 15-37 U/L Alanine Aminotransferase (ALT/SGPT) 26 12-78 U/L Alkaline Phosphatase 71 45-117 U/L Total Creatine Kinase 78 26-192 U/L Creatine Kinase MB 1.8 0.5-3.6 ng/ml Creatine Kinase MB Ratio 2.3 0-3.0 Troponin I < 0.015 0-0.045 ng/ml Pro-B-Type Natriuretic Peptide 523 0-900 pg/ml Total Protein 7.0 6.4-8.2 gm/dl Albumin 3.0 3.4-5.0 gm/dl Globulin 4.0 2.5-4.0 gm/dl Albumin/Globulin Ratio 0.8 0.9-2 Bedside Lactic Acid Venous 0.84 0.90-1.70 mmol/L Urine Color YELLOW Urine Appearance CLEAR CLEAR Urine pH 6.5 4.5-7.5 Urine Specific [place] 1.036 1.000-1.030 Urine Protein NEG NEG Urine Glucose (UA) 3+ NEG Urine Ketones NEG NEG Urine Occult Blood 2+ NEG Urine Nitrite NEG NEG Urine Bilirubin NEG NEG Urine Urobilinogen NEG NEG Urine Leukocyte Esterase NEG NEG Urine WBC (Auto) 1-5 0-5 /hpf Urine RBC (Auto) >30 0-4 /hpf Urine Hyaline Casts (Auto) 0 0-5 /lpf Urine Epithelial Cells (Auto) 10-20 0-5 /lpf Urine Bacteria (Auto) NEG NEG Microbiology Results 04/26/17 Blood Culture, Received Pending 04/26/17 Blood Culture, Received Pending Diagnostic Radiology CHEST ONE VIEW PORTABLE CLINICAL HISTORY: COUGH, HYPOXIA dyspnea COMPARISON STUDY: 01/06/2017 FINDINGS: Parenchymal infiltrate left base. Lungs otherwise appear clear. Diaphragms smooth. Calcifications are sharp. IMPRESSION: Infiltrate left base. EKG Normal sinus rhythm T wave abnormality, consider anterior ischemia Abnormal ECG When compared with ECG of 06-JAN-2017 14:01, Nonspecific T wave abnormality now evident in Lateral leads Impression Assessment and Plan 71 year old female presents with productive cough with dyspnea confirmed as left lower lobe pneumonia Pneumonia - CXR on admission: Infiltrate left base - IV levaquin 500mg daily + IV ceftriaxone 1000mg daily - Supplemental oxygen, wean as tolerated - Fina Supratherapeutic INR - INR 3.5 on admission - Warfarin held - Recheck INR tomorrow Electrolyte disturbance - K+ 2.8 on admission - KCl supplementation given - Recheck BMP tomorrow Chronic pain - Oxycodone 7.5mg q6h + Pregabalin 150mg BID + Tramadol 100mg q6H PRN Severe vascular disease/ HLD - Aspirin 325mg daily - Warfarin held - [id number] qPM + pravastatin 40mg qPM Leg edema - Furosemide 20mg daily HTN - Diltiazem 180mg BID + labetalol 100mg BID + hydralazine 25mg daily DM - Hold home meds except Lantus 12units qAM + ISS - BGS AC/HS VTE PPx - Enoxaparin 40mg SC Dispo: Med/surg DO NOT RESUSCITATE Level of Care Med/Surg Advanced Directives Existing Advance Directive: No Existing Living Will: No Existing Power of [place] Installation Helper: No Existing Health Care Proxy: Yes (Ann Sotelo - Daughter) Resuscitation Status DO NOT RESUSCITATE VTE Prophylaxis VTE Risk Assessment Done? Y/N: Yes Risk Level: Moderate Given or contraindicated: Enoxaparin (Lovenox)SQ Resident Tracking Resident Involvement: Resident Care Provided Care Provided: Adult Hospital Medicine Assessment and Plan Attending Addendum: I have physically seen and examined this patient, have directed their medical care, have supervised the medical residents activities, and agree with the H&P as noted above, with the following changes: NONE
[2017-04-26 18:13] LABS: MAGNESIUM 2.2 mg/dl (1.8-2.4)
[2017-04-26] MEDS ORDERED: DIPHENOXYLATE/ATROPINE 2.5/0.025MG TAB PO PRN (18:15)
[2017-04-26] MEDS ORDERED: MECLIZINE HCL 25 MG TAB PO PRN (18:15)
[2017-04-26] MEDS ORDERED: NITROGLYCERIN 0.4 MG SL PER TAB CHARGE SL PRN (18:15)
[2017-04-26] MEDS ORDERED: TRAMADOL HCL 50 MG TAB PO PRN (18:15)
[2017-04-26] MEDS ORDERED: FUROSEMIDE 20 MG TAB PO PRN (18:15)
[2017-04-26] MEDS ORDERED: MAGNESIUM HYDROXIDE SUSP 30 ML UDC PO PRN (18:15)
[2017-04-26] MEDS ORDERED: FLUTICASONE PROPIONATE NA SPR 16 GM BTL NAE PRN (18:15)
[2017-04-26] MEDS ORDERED: OXYCODONE HCL 7.5 MG PO SCH (18:15)
[2017-04-26] MEDS ORDERED: OXYBUTYNIN CHLORIDE 5 MG TAB PO PRN (18:15)
[2017-04-26] MEDS ORDERED: LEVOFLOXACIN / D5W 500 MG in PREMIXED IN D5W 100 ML IV SCH (18:15)
[2017-04-26] MEDS ORDERED: POLYETHYLENE (MIRALAX) 17 GM PACK PO PRN (18:15)
[2017-04-26] MEDS ORDERED: LORAZEPAM 0.5 MG TAB PO PRN (18:15)
[2017-04-26] MEDS ORDERED: NITROGLYCERIN OINT 2% 1GM PACKET EXT SCH (18:15)
[2017-04-26] MEDS ORDERED: ONDANSETRON 8 MG TAB PO PRN (18:15)
[2017-04-26] MEDS ORDERED: ALUMINUM/MAGNESIUM/SIMETH (MAALOX MAX) 30 ML UDC PO PRN (18:15)
[2017-04-26] MEDS ORDERED: ENOXAPARIN 40 MG/0.4 ML SYR SC SCH (18:15)
[2017-04-26] MEDS ORDERED: ACETAMINOPHEN 325 MG TAB PO PRN (18:15)
[2017-04-26] MEDS ORDERED: CEFTRIAXONE SOD INJ 1,000 MG in DEXTROSE 5% 50ML 50 ML IV ONE (19:06)
[2017-04-26] MEDS ORDERED: GLUCOSE 10 TABS/TUBE PO PRN (19:15)
[2017-04-26] MEDS ORDERED: GLUCOSE 40% GEL 15 GM TUBE PO PRN (19:15)
[2017-04-26] MEDS ORDERED: GLUCAGON FOR INJ 1 MG VIAL SQ PRN (19:15)
[2017-04-26] MEDS ORDERED: IV FLUIDS COMPLETED PRN (19:30)
--- NOTE | 2017-04-26 19:37 | EMERGENCY ROOM VISIT NOTE ---
History Report prepared by Stacy: Mynor Echeverria Under the Supervision of: Dr. Luis Enrique Cagle M.D. First contact with patient: 14:24 Chief Complaint: REFERRED BY DOCTOR Stated Complaint: REFERRED BY DOCTOR, OXYGEN LOW History of Present Illness The patient is a 71 year old female who presents to the Emergency Room with complaints of persistent shortness of breath starting about 2 weeks ago. She also complains of a cough. She describes her esophagus to be closing up. She notes generalized weakness. She reports symptom relief with being placed on oxygen. She has a history of COPD and diabetes. She does not use oxygen at home. She currently denies any steroids. She is still on blood thinners. She was referred to the Emergency Room by her PCP. She has a history of chronic back pain but denies any changes. Pt denies LOC, headache, fevers, chills, diaphoresis, visual changes, neck pain, chest pain, nausea, vomiting, abdominal pain, melena, hematochezia, urinary symptoms, numbness, lymphadenopathy, rash, or other complaints. Source of History: patient Onset: about 2 weeks ago Position: other (global) Quality: other (shortness of breath) Timing: other (persistent) Modifying Factors (Relieving): oxygen (with relief) Associated Symptoms: + cough, + weakness Review of Systems See HPI for pertinent positives and negatives. A total of ten systems were reviewed and were otherwise negative. Past Medical & Surgical Medical Problems: (1) Asthma (2) Chronic obstructive lung disease (3) Community acquired pneumonia (4) Diabetes mellitus (5) GI bleed (6) Pneumonia (7) TIA (transient ischemic attack) Family History Cancer Diabetes mellitus Gallbladder disease Heart disease Hypertension Social History Smoking Status: Current Every Day Smoker Alcohol Use: occasionally Drug Use: none Marital Status: Housing Status: lives with family Occupation Status: retired Current/Historical Medications Scheduled Aspirin (Aspirin), 325 MG PO DAILY Canagliflozin (Invokana), 100 MG PO QAM Cyanocobalamin (Vitamin B-12), 1,000 MCG PO HOLD Diltiazem Hcl Coated Beads (Cartia Xt), 180 MG PO BID Ezetimibe (Zetia), 10 MG PO QPM Glipizide (Glipizide ER), 20 MG PO QAM Hydralazine Hcl (Apresoline), 25 MG PO UD Insulin Glargine (Lantus Solostar), 12 UNITS SC QAM Labetalol HCl (Labetalol HCl), 100 MG PO BID Omeprazole (Prilosec), 20 MG PO BID Oxycodone Hcl (Oxycodone Hcl), 7.5 MG PO Q6H Pravastatin Sodium (Pravastatin Sodium), 40 MG PO QPM Pregabalin (Lyrica), 150 MG PO BID Senna (Senokot), 43 MG PO QPM Trazodone Hcl (Trazodone), 100 MG PO HS Warfarin Sod (Jantoven), 4 MG PO Q2D Warfarin Sod (Jantoven), 6 MG PO Q2D Scheduled PRN Cyclosporine (Ophth) (Restasis), 1 DROP OP BID PRN for DRYNESS Diphenoxylate/Atropine (Lomotil 2.5-0.025 mg), 2 TABS PO QID PRN for Diarrhea Fluticasone Propionate (Nasal) (Flonase Allergy Relief), 2 SPRAYS DARRYL DAILY PRN for Allergy Symptoms Furosemide (Lasix), 20 MG PO DAILY PRN for Fluid Accumulation Ipratropium-Albuterol (Combivent Respimat), 1 PUFF INH QID PRN for Shortness of Breath Levalbuterol Tartrate (Levalbuterol Tartrate Hfa), 2 SPRAYS INH Q4H PRN for SOB/ Wheezing Lorazepam (Lorazepam), 0.5 MG PO BID PRN for Anxiety Meclizine Hcl (Meclizine Hcl), 25 MG PO DAILY PRN for Dizziness or Vertigo Nitroglycerin (Nitrostat), 0.4 MG UT UD PRN for Chest Pain Ondansetron Hcl (Zofran), 8 MG PO UD PRN for Nausea Oxybutynin Chloride (Oxybutynin Chloride), 5 MG PO UD PRN for Bladder pain Tramadol HCl (Tramadol HCl), 100 MG PO Q6H PRN for Pain Valacyclovir Hcl (Valtrex), 1 GM PO UD PRN for Cold Sores Allergies Coded Allergies: Calcium Carbonate (Verified Allergy, Intermediate, OYSTER SHELL-ITCHY, HIVES, 04/09/17) Nylon (Verified Allergy, Intermediate, HIVES, 04/09/17) Adhesives (Verified Allergy, Mild, RED ITCHY RASH, NYLON = ITCHY, 04/09/17) Animal Dander (Verified Allergy, Unknown, ASTHMA, 04/09/17) Calcium (Verified Allergy, Unknown, ITCHY, 04/09/17) Montelukast (Verified Allergy, Unknown, ., 04/09/17) Phenobarbital (Verified Allergy, Unknown, DOESN'T REMEMBER WHAT HAPPENED, 04/09/17) Shellfish (Verified Allergy, Unknown, HIVES, 04/09/17) Sulfa Antibiotics (Verified Allergy, Unknown, HIVES/RASH TO SULFA DRUGS, ) Egg (Verified Adverse Reaction, Unknown, SORE THROAT, 04/09/17) Uncoded Allergies: METAL (Adverse Reaction, Intermediate, itchy raw skin burning, 10/29/16) Physical Exam Vital Signs Date Time Temp Pulse Resp B/P (MAP) Pulse Ox O2 Delivery O2 Flow Rate FiO2 04/26/17 17:14 87 20 152/84 93 Nasal Cannula 2.0 04/26/17 16:03 114 22 172/84 91 Nasal Cannula 2.0 04/26/17 15:18 84 20 153/69 97 Nebulizer 7.0 04/26/17 14:06 95 Nasal Cannula 2.0 04/26/17 14:06 95 Nasal Cannula 2.0 04/26/17 14:02 95 04/26/17 13:53 37.0 88 22 135/56 89 Room Air Physical Exam GENERAL: Awake, alert, mildly dyspneic, uncomfortable-appearing, in no distress. HENT: Normocephalic, atraumatic. Oropharynx unremarkable. EYES: Normal conjunctiva. Sclera non-icteric. NECK: Supple. No nuchal rigidity. FROM. No JVD. RESPIRATORY: Occasional cough. Wheezing and rhonchi bilaterally. CARDIAC: Regular rate, normal rhythm. Extremities warm and well perfused. Pulses equal. ABDOMEN: Soft, non-distended. No tenderness to palpation. No rebound or guarding. No masses. RECTAL: Deferred. MUSCULOSKELETAL: Chest examination reveals no tenderness. The back is symmetrical on inspection without obvious abnormality. There is no CVA tenderness to palpation. No joint edema. LOWER EXTREMITIES: Calves are equal size bilaterally and non-tender. 1+ pedal edema on the right. No discoloration. NEURO: Normal sensorium. No sensory or motor deficits noted. SKIN: No rash or jaundice noted. Medical Decision & Procedures ER Provider Diagnostic Interpretation: X-ray: Per my interpretation, radiologist review. CHEST ONE VIEW PORTABLE CLINICAL HISTORY: COUGH, HYPOXIA dyspnea COMPARISON STUDY: 01/06/2017 FINDINGS: Parenchymal infiltrate left base. Lungs otherwise appear clear. Diaphragms smooth. Calcifications are sharp. IMPRESSION: Infiltrate left base. Electronically signed by: Juan Mcguire M.D. 04/26/2017 3:35 PM Dictated Date/Time: 04/26/2017 3:35 PM Laboratory Results 04/26/17 14:10 Red Blood Count 4.53, Mean Corpuscular Volume 91.4, Mean Corpuscular Hemoglobin 32.7, Mean Corpuscular Hemoglobin Concent 35.7, Mean Platelet Volume 10.1, Neutrophils (%) (Auto) 76.0, Lymphocytes (%) (Auto) 14.0, Monocytes (%) (Auto) 8.9, Eosinophils (%) (Auto) 0.7, Basophils (%) (Auto) 0.2, Neutrophils # (Auto) 9.25, Lymphocytes # (Auto) 1.71, Monocytes # (Auto) 1.09, Eosinophils # (Auto) 0.08, Basophils # (Auto) 0.03 04/26/17 14:10 Test 04/26/17 14:10 04/26/17 14:50 04/26/17 15:15 White Blood Count 12.18 K/uL (4.8-10.8) Red Blood Count 4.53 M/uL (4.2-5.4) Hemoglobin 14.8 g/dL (12.0-16.0) Hematocrit 41.4 % (37-47) Mean Corpuscular Volume 91.4 fL (80-100) Mean Corpuscular Hemoglobin 32.7 pg (25-34) Mean Corpuscular Hemoglobin Concent 35.7 g/dl (32-36) Platelet Count 320 K/uL (130-400) Mean Platelet Volume 10.1 fL (7.4-10.4) Neutrophils (%) (Auto) 76.0 % Lymphocytes (%) (Auto) 14.0 % Monocytes (%) (Auto) 8.9 % Eosinophils (%) (Auto) 0.7 % Basophils (%) (Auto) 0.2 % Neutrophils # (Auto) 9.25 K/uL (1.4-6.5) Lymphocytes # (Auto) 1.71 K/uL (1.2-3.4) Monocytes # (Auto) 1.09 K/uL (0.11-0.59) Eosinophils # (Auto) 0.08 K/uL (0-0.5) Basophils # (Auto) 0.03 K/uL (0-0.2) RDW Standard Deviation 43.8 fL (36.4-46.3) RDW Coefficient of Variation 13.1 % (11.5-14.5) Immature Granulocyte % (Auto) 0.2 % Immature Granulocyte # (Auto) 0.02 K/uL (0.00-0.02) Prothrombin Time 39.3 SECONDS (9.0-12.0) Prothromb Time International Ratio 3.5 (0.9-1.1) Activated Partial Thromboplast Time 50.6 SECONDS (21.0-31.0) Partial Thromboplastin Ratio 1.9 Anion Gap 8.0 mmol/L (3-11) Est Creatinine Clear Calc Drug Dose 66.6 ml/min Estimated GFR () 102.3 Estimated GFR (Non- 88.3 BUN/Creatinine Ratio 11.4 (10-20) Calcium Level 8.8 mg/dl (8.5-10.1) Magnesium Level 2.2 mg/dl (1.8-2.4) Total Bilirubin 0.4 mg/dl (0.2-1) Aspartate Amino Transf (AST/SGOT) 18 U/L (15-37) Alanine Aminotransferase (ALT/SGPT) 26 U/L (12-78) Alkaline Phosphatase 71 U/L (45-117) Total Creatine Kinase 78 U/L (26-192) Creatine Kinase MB 1.8 ng/ml (0.5-3.6) Creatine Kinase MB Ratio 2.3 (0-3.0) Troponin I < 0.015 ng/ml (0-0.045) Pro-B-Type Natriuretic Peptide 523 pg/ml (0-900) Total Protein 7.0 gm/dl (6.4-8.2) Albumin 3.0 gm/dl (3.4-5.0) Globulin 4.0 gm/dl (2.5-4.0) Albumin/Globulin Ratio 0.8 (0.9-2) Bedside Lactic Acid Venous 0.84 mmol/L (0.90-1.70) Urine Color YELLOW Urine Appearance CLEAR (CLEAR) Urine pH 6.5 (4.5-7.5) Urine Specific Ada 1.036 (1.000-1.030) Urine Protein NEG (NEG) Urine Glucose (UA) 3+ (NEG) Urine Ketones NEG (NEG) Urine Occult Blood 2+ (NEG) Urine Nitrite NEG (NEG) Urine Bilirubin NEG (NEG) Urine Urobilinogen NEG (NEG) Urine Leukocyte Esterase NEG (NEG) Urine WBC (Auto) 1-5 /hpf (0-5) Urine RBC (Auto) >30 /hpf (0-4) Urine Hyaline Casts (Auto) 0 /lpf (0-5) Urine Epithelial Cells (Auto) 10-20 /lpf (0-5) Urine Bacteria (Auto) NEG (NEG) Laboratory results reviewed by me Medications Administered Medications (Trade) Dose Ordered Sig/Mila Route Start Time Stop Time Status Last Admin Dose Admin Methylprednisolone Sodium Succinate (Solu-Medrol IV) 125 mg NOW STAT IV 04/26/17 14:41 04/26/17 14:43 DC 04/26/17 15:12 125 MG Albuterol/ Ipratropium (Duoneb) 3 ml NOW STAT INH 04/26/17 14:41 04/26/17 14:43 DC 04/26/17 15:12 3 ML Levofloxacin (Levaquin / D5W) 750 mg NOW STAT IV 04/26/17 16:40 04/26/17 16:42 DC 04/26/17 17:03 750 MG Potassium Chloride (Kcl 10 Meq / Wtr) 10 meq NOW STAT IV 04/26/17 16:54 04/26/17 16:55 DC 04/26/17 17:03 10 MEQ Potassium Chloride (Klor-Con M10) 20 meq NOW STAT PO 04/26/17 16:54 04/26/17 16:55 DC 04/26/17 17:02 20 MEQ ECG Indication: SOB/dyspnea Rate (beats per minute): 80 Rhythm: normal sinus Findings: T-wave inversion (Anterior), no ectopy ED Course 1424: The patient was evaluated in room A09B. A complete history and physical exam was performed. Medication Reconciliation: I attest that I have personally reviewed the patient' s current medication list Blood pressure screening: Patient was found to have an elevated blood pressure and was referred to their primary doctor for recheck and further treatment. 1441: DuoNeb 3 ml INH, Solu-Medrol IV 125 mg IV 1640: Levofloxacin 750 mg IV 1654: Potassium Chloride 20 meq PO, Potassium Chloride 10 meq IV 1700: Upon reexamination, the patient was resting comfortably. I discussed the test results and treatment plan with her. The patient will be evaluated for further management. 1815: The patient will be evaluated by Dr. Shoemaker, from [facility] Hospitalist [facility]. Medical Decision Triage Nursing notes reviewed. The patient's presentation and history were concerning for hypoxia and shortness of breath. Etiologies such as pneumonia, COPD, reactive airway disease, CHF, cardiac ischemia, pulmonary embolism, pneumothorax, musculoskeletal, infections, gastrointestinal, as well as others were entertained. The patient was evaluated. She was hypoxic. She had abnormal lung sounds. DuoNeb was initiated. She was given Solu-Medrol. Blood cultures were obtained. Blood work was done. ECG did not reveal any acute ischemic change. Chest x-ray was concerning for pneumonia. The patient was doing better on reassessment the store cart supplemental oxygen. IV Levaquin was initiated. Patient will need further evaluation and management in the hospital as she is requiring oxygen consultation was made with internal medicine. The patient was evaluated in the Emergency Room and admitted for further treatment. After the patient was admitted but before she was sent to her room the patient requested to leave. I did meet with the patient and told her this was not advisable as she had hypoxia and pneumonia. The patient also had low potassium. She does not want to stay in the hospital and demands to leave. I did reiterate the risks and benefits and the patient still wishes to leave and is demanding that her IV be taken out. I gave my usual and customary discussion regarding this issue. I did notify Dr. Alves of the hospitalist service. The patient has demonstrated no significant defect in the decision-making capacity to make choices. The encounter had a good level of communication with language the patient can easily understand. I feel trust was present and conveyed that our action/intentions were the best interest of the patient. I offered to involve the patient's primary service. The patient was given all relevant information and reiterated the explained risks and benefits. The patient explained the reasoning for refusing treatment clearly. The patient possesses and expresses a set of values and goals, the ability to communicate and understand, and an ability to reason and deliberate. Despite acting emphatically, attentively and with the utmost patient's the patient declined further treatment. I offered options, negotiated, and explored every reasonable choice. I must respect the patient's autonomy and that they feel that their choices are best for them despite the associated risks of leaving AGAINST MEDICAL ADVICE. Impression Primary Impression: Pneumonia Additional Impression: Hypoxia Scribe Attestation The scribe's documentation has been prepared under my direction and personally reviewed by me in its entirety. I confirm that the note above accurately reflects all work, treatment, procedures, and medical decision making performed by me. Departure Information Dispostion Against Medical Advice Prescriptions Levofloxacin (Levaquin) 500 Mg Tab 500 MG PO DAILY for 9 Days, #9 TAB Prov: Luis Enrique Cagle MD 04/26/17 Referrals Yin Higgins PA-C (PCP) Patient Instructions My [facility] Additional Instructions You are leaving against the physician's medical advice. Your evaluation is not complete. The exact cause of your symptoms is not known at this time. Your health could be at significant risk by your actions of leaving before the evaluation was completed. This could result in worsening of your condition, need for further treatment, hospitalization, surgery, or even . You may return at any time, for any reason, but you are encouraged to return immediately if your symptoms worsen or if you change your mind. Since you don't want to complete the evaluation here please seek medical care elsewhere as soon as possible. Follow-up with your primary care physician today for a recheck of your current condition. PNEUMONIA INSTRUCTIONS: Levafloxacin(Levaquin) 500mg: Take one pill daily for 9 days for your infection. All antibiotics can cause diarrhea. If this occurs and you feel worse or it does not resolve in 1-2 days follow up with your doctor or return to the Emergency Department as this could be signs of serious underlying problems. Any medication can cause an allergic reaction, stop the pills immediately and return to the ER for rash, hives, breathing difficulties, or swelling. Albuterol Inhaler: Take 2 puffs four times daily for seven days, then as needed. Acetaminophen(Tylenol) may be used for fever or pain. Use 1000mg every six hours as needed. Avoid using more than 4000mg in a 24 hour period. Controlling your fever with Tylenol as above will make you feel better. Rest and drink plenty of fluids. Avoid strenuous activity until your symptoms resolve and your breathing returns to normal. Return to the ER for chest pain, difficulty breathing, persistent fevers, vomiting, worsening of your condition, or as needed. Follow up with your primary physician as soon as possible for a recheck of the current condition. A repeat of your blood work will be necessary at follow-up because of the antibiotic and electrolytes. Problem Qualifiers
[2017-04-26] MEDS ORDERED: LEVO-366 PO (19:57)
[2017-04-26] MEDS ORDERED: ALBUTEROL HFA 8 GM INHALER INH ONE (20:00)
[2017-04-26] MEDS ORDERED: ALBUT/IPRATROP 3MG/0.5MG NEB 3 ML VIAL INH SCH (20:00)
[2017-04-26] MEDS ORDERED: WARF4TAB8 PO (20:01)
[2017-04-26] MEDS ORDERED: LBT100 PO (20:01)
[2017-04-26] MEDS ORDERED: TRAZODONE HCL 100 MG TAB PO SCH (21:00)
[2017-04-26] MEDS ORDERED: LABETALOL HCL 100 MG TAB PO SCH (21:00)
[2017-04-26] MEDS ORDERED: DILTIAZEM HCL 180 MG CAPCR PO SCH (21:00)
[2017-04-26] MEDS ORDERED: PREGABALIN 150 MG CAP PO SCH (21:00)
[2017-04-26] MEDS ORDERED: PRAVASTATIN SOD 40 MG TAB PO SCH (21:00)
[2017-04-26] MEDS ORDERED: PANTOprazole SOD 40 MG TAB PO SCH (21:00)
[2017-04-26] MEDS ORDERED: EZETIMIBE 10MG TAB PO SCH (21:00)
[2017-04-26] MEDS ORDERED: INSULIN ASPART 100 UNITS/ML 3 ML PEN SC SCH (21:00)
[2017-04-26] MEDS ORDERED: SENNA 8.6 MG TAB PO SCH (21:00)
[2017-04-26] MEDS ORDERED: POTASSIUM CHLORIDE 10 MEQ TABCR PO ONE (22:00)
[2017-04-26] MEDS ORDERED: APR25 PO (22:09)
[2017-04-27] MEDS ORDERED: CEFTRIAXONE SOD INJ 1,000 MG in DEXTROSE 5% 50ML 50 ML IV SCH (09:00)
[2017-04-27] MEDS ORDERED: CYANOCOBALAMIN 500 MCG TAB (VIT B-12) PO SCH (09:00)
[2017-04-27] MEDS ORDERED: INSULIN GLARGINE SOLOSTAR 100 UNITS/ML 3 ML PEN SC SCH (09:00)
[2017-04-27] MEDS ORDERED: ASPIRIN 325 MG ECTAB PO SCH (09:00)
[2017-06-19] MEDS ORDERED: CYM/30 PO (07:10)
[2017-07-29] MEDS ORDERED: OXYC1TAB3 PO (13:26)
[2017-08-04] MEDS ORDERED: PREG1CAP70 PO (12:09)
[2017-08-04] MEDS ORDERED: IPRA1AER2 INH (14:46)
[2017-08-04] MEDS ORDERED: OMEP20CA9 PO (15:32)
[2017-08-04] MEDS ORDERED: DTR5 PO (15:32)
[2017-08-04] MEDS ORDERED: VALA1TAB31 PO (15:32)
[2017-08-04] MEDS ORDERED: TRAZ100T29 PO (15:39)
[2017-08-22] MEDS ORDERED: DILT120C99 PO (11:16)
[2017-08-22] MEDS ORDERED: PREG1CAP34 PO (11:16)
[2017-08-22] MEDS ORDERED: LINA1CAP PO (11:16)
[2017-08-22] MEDS ORDERED: INSDGI SC (11:16)
[2017-08-26] MEDS ORDERED: SENN-61 PO (11:24)
[2017-08-26] MEDS ORDERED: DILT-113 PO (11:24)
[2017-08-26] MEDS ORDERED: LINA72CA PO (11:24)
[2017-08-26] MEDS ORDERED: IPRA1AER2 INH (11:24)
[2017-08-26] MEDS ORDERED: LEVA45AE INH (11:24)
[2017-08-26] MEDS ORDERED: CYCL0.052 OPB (11:24)
[2017-08-26] MEDS ORDERED: MECL1TAB42 PO (11:24)
[2017-08-26] MEDS ORDERED: PREG1CAP70 PO (11:24)
[2017-08-26] MEDS ORDERED: LBT/100 PO (11:24)
[2017-08-26] MEDS ORDERED: WARF4TAB8 PO (11:24)
[2017-08-26] MEDS ORDERED: EZET10TA63 PO (11:24)
[2017-08-26] MEDS ORDERED: DULO60CA44 PO (11:24)
[2017-08-26] MEDS ORDERED: TRAZ100T29 PO (11:24)
== END 2017-04-26 20:05 | disposition left against medical advice (07) ==
LOC: C.EDB 13:50 → EDBEDREQ 19:07 → ENRESERV 19:23 → CANRESERV 19:23 → CANBEDREQ 19:52 → C.EDA 20:05
DX: J18.9 Pneumonia, unspecified organism (principal); R09.02 Hypoxemia; J44.9 Chronic obstructive pulmonary disease, unspecified; E11.9 Type 2 diabetes mellitus without complications; Z86.73 Personal history of transient ischemic attack (TIA), and cerebral infarction without residual deficits; Z80.9 Family history of malignant neoplasm, unspecified; Z83.3 Family history of diabetes mellitus; Z82.49 Family history of ischemic heart disease and other diseases of the circulatory system; F17.210 Nicotine dependence, cigarettes, uncomplicated; Z79.82 Long term (current) use of aspirin; Z79.01 Long term (current) use of anticoagulants; Z79.899 Other long term (current) drug therapy

== ENCOUNTER → 2017-04-30 | Outpatient (CLI) | payer OTHER ==
[~2017-04-30] MED LIST changes: +APR25 PO; +ASPI325T45 PO; +ATV5X PO; -CRDCD/180 PO; +CYAN10005 PO; +CYCL0.052 OPB; +CYM/30 PO; +CYM60 PO; +DILT-113 PO; +DILT120C99 PO; +DILT180C50 PO; +DOXE10CA PO; -DSY100 PO; -DTR/5 PO; +DTR5 PO; +DULO60CA44 PO; -ENOX60IN SQ; +GLCSR10 PO; -GLIP-199 PO; +GLIP1TAB85 PO; +INSDGI SC; +INSDGIPEN SC; +IPRA1AER2 INH; +LBT/100 PO; +LBT100 PO; +LEVO-366 PO; +LINA1CAP PO; +LINA72CA PO; +LINACLOTIDE PO; +LPT40 PO; +MECL1TAB42 PO; +METF500T5 PO; +NITR1CAP32 PO; +NTRGSL/4 UT; +NVLGI/PEN SQ; +OMEP20CA9 PO; -OMEP20TA PO; +OXY/15 PO; +OXYC-164 PO; -OXYC15TA89 PO; +OXYC1TAB3 PO; +PRAV40TA2 PO; -PRAV80TA2 PO; +PRED20TA PO; +PREG1CAP34 PO; +PREG1CAP70 PO; -TRAM-10 PO; +TRAZ100T29 PO; +ULT50 PO; -VALA1TAB2 PO; +VALA1TAB31 PO; +ZTA10 PO
--- NOTE | 2017-04-30 16:48 | DIAGNOSTIC IMAGING REPORT ---
RIGHT FOOT MIN 3 VIEWS ROUTINE CLINICAL HISTORY: M79.081 M25.476 right foot pain COMPARISON: None. DISCUSSION: The bones are osteopenic. No fractures or subluxations are visualized. There are no erosive or destructive changes. There is a plantar calcaneal spur. There is pronounced dorsal soft tissue swelling. IMPRESSION: 1. Osteopenia 2. Pronounced dorsal soft tissue swelling 3. No fractures are visualized. Electronically signed by: Deepak Young M.D. 04/30/2017 4:47 PM Dictated Date/Time: 04/30/2017 4:46 PM
== END | disposition home or self-care (01) ==
LOC: C.RAD 16:26
PROVIDERS: ATTEND Physician Assistant
DX: M79.671 Pain in right foot (principal); M25.476 Effusion, unspecified foot

== ENCOUNTER → 2017-05-29 | Outpatient (CLI) | payer OTHER ==
[~2017-05-29] MED LIST changes: -LEVO-366 PO
== END | disposition home or self-care (01) ==
LOC: C.LABMFLN 13:43
PROVIDERS: ATTEND Family Medicine
DX: R35.0 Frequency of micturition (principal)

== ENCOUNTER → 2017-05-31 | Outpatient (CLI) | payer OTHER ==
--- NOTE | 2017-05-31 15:45 | DIAGNOSTIC IMAGING REPORT ---
RENAL ULTRASOUND CLINICAL HISTORY: Hematuria. COMPARISON STUDY: CT of the abdomen and pelvis January 06, 2017 and MRCP February 08, 2017 and renal ultrasound December 12, 2015. TECHNIQUE: Sonography of the kidneys and the urinary bladder was performed. FINDINGS: The right kidney measures 11 cm in maximal dimension and the left measures 10.6 cm. Several anechoic left renal lesions suggest cysts. There is a 1.4 cm left renal calculus. There is no hydronephrosis. Both ureteral jets were identified. IMPRESSION: 1. No hydronephrosis. 2. 1.4 cm left renal calculi. 3. Several left renal cysts. Electronically signed by: Thomas Alexis M.D. 05/31/2017 3:44 PM Dictated Date/Time: 05/31/2017 3:42 PM
== END | disposition home or self-care (01) ==
LOC: C.ULTR 14:23
PROVIDERS: ATTEND Family Medicine
DX: D64.9 Anemia, unspecified (principal); Z79.01 Long term (current) use of anticoagulants; R31.9 Hematuria, unspecified; E78.5 Hyperlipidemia, unspecified

== ENCOUNTER 2017-06-15 12:36 | Emergency (ER) | payer OTHER ==
[~2017-06-15 12:36] MED LIST changes: -ASPI325T45 PO; -ATV5X PO; -CYCL0.052 OPB; -CYM/30 PO; -CYM60 PO; -DILT-113 PO; -DILT120C99 PO; -DOXE10CA PO; -DTR5 PO; -DULO60CA44 PO; -EZET10TA63 PO; -GLIP1TAB85 PO; -INSDGI SC; -IPRA1AER2 INH; -LBT/100 PO; -LINA1CAP PO; -LINA72CA PO; -LINACLOTIDE PO; -LPT40 PO; -METF500T5 PO; -NITR1CAP32 PO; -NVLGI/PEN SQ; -OMEP20CA9 PO; -OXYC-164 PO; -OXYC1TAB3 PO; -PRED20TA PO; -PREG1CAP34 PO; -PREG1CAP70 PO; -TRAZ100T29 PO; -VALA1TAB31 PO
[2017-06-15 12:38] VITALS: TEMP 36.4; Ht 160 cm
[2017-06-15] MEDS ORDERED: NITR1CAP32 PO (13:29)
[2017-06-15] MEDS ORDERED: SODIUM CHLORIDE 0.9% 1000ML 1,000 ML IV STA (13:43)
--- NOTE | 2017-06-15 13:54 | EMERGENCY ROOM VISIT NOTE ---
History Report prepared by Stacy: Deb Booth Under the Supervision of: Dr. Bella Foote M.D. First contact with patient: 13:11 Chief Complaint: OTHER COMPLAINT Stated Complaint: STROKE, LOWER BACK PAIN, NO BALANCE/COORDINATION History of Present Illness The patient is a 71 year old female who presents to the Emergency Room with complaints of persistently feeling off balance that worsened last evening. She currently rates her discomfort as a 5/10 in severity. The patient states that she has a history of previous strokes and multiple previous neck and back surgeries. She states that she has had a chronic left foot drop since one of her surgeries. The patient states that last evening into today she has noticed worsened balance issues and states that she has been leaning more to the left. She states that she has lost control of her bladder, but denies any loss of control of bowels. The patient additionally reports weakness in her bilateral arms and legs. She denies any fever. The patient states that she has a current bladder infection for the past week. She states that she is anti- coagulated on Coumadin. Source of History: patient Onset: last evening Position: other (global) Symptom Intensity: 5/10 Quality: other (feeling off balance) Timing: other (persistently) Associated Symptoms: + urinary symptoms (loss of conrol, current bladder infection), + weakness (bilateralarm and leg), No fevers Review of Systems See HPI for pertinent positives & negatives. A total of 10 systems reviewed and were otherwise negative. Past Medical & Surgical Medical Problems: (1) Asthma (2) Chronic obstructive lung disease (3) Community acquired pneumonia (4) Diabetes mellitus (5) GI bleed (6) Pneumonia (7) TIA (transient ischemic attack) Family History Cancer Diabetes mellitus Gallbladder disease Heart disease Hypertension Social History Smoking Status: Current Every Day Smoker Alcohol Use: occasionally Drug Use: none Marital Status: Housing Status: lives with family Occupation Status: retired Current/Historical Medications Scheduled Aspirin (Aspirin), 325 MG PO DAILY Diltiazem Hcl Coated Beads (Cartia Xt), 180 MG PO BID Glipizide (Glipizide ER), 20 MG PO QAM Hydralazine Hcl (Apresoline), 25 MG PO UD Insulin Glargine (Lantus Solostar), 30 UNITS SC QAM Labetalol HCl (Labetalol HCl), 100 MG PO BID Nitrofurantoin Macrocrystals (Macrodantin), 100 MG PO BID Omeprazole (Prilosec), 20 MG PO BID Pregabalin (Lyrica), 150 MG PO BID Senna (Senokot), 43 MG PO QPM Trazodone Hcl (Trazodone), 150 MG PO HS Warfarin Sod (Jantoven), 4 MG PO Q2D Warfarin Sod (Jantoven), 6 MG PO Q2D Scheduled PRN Cyclosporine (Ophth) (Restasis), 1 DROP OP BID PRN for DRYNESS Diphenoxylate/Atropine (Lomotil 2.5-0.025 mg), 2 TABS PO QID PRN for Diarrhea Furosemide (Lasix), 20 MG PO DAILY PRN for Fluid Accumulation Ipratropium-Albuterol (Combivent Respimat), 1 PUFF INH QID PRN for Shortness of Breath Lorazepam (Lorazepam), 0.5 MG PO BID PRN for Anxiety Meclizine Hcl (Meclizine Hcl), 25 MG PO DAILY PRN for Dizziness or Vertigo Nitroglycerin (Nitrostat), 0.4 MG UT UD PRN for Chest Pain Oxybutynin Chloride (Oxybutynin Chloride), 5 MG PO UD PRN for Bladder pain Tramadol HCl (Tramadol HCl), 100 MG PO Q6H PRN for Pain Valacyclovir Hcl (Valtrex), 1 GM PO UD PRN for Cold Sores Allergies Coded Allergies: Calcium Carbonate (Verified Allergy, Intermediate, OYSTER SHELL-ITCHY, HIVES, 04/09/17) Nylon (Verified Allergy, Intermediate, HIVES, 04/09/17) Adhesives (Verified Allergy, Mild, RED ITCHY RASH, NYLON = ITCHY, 04/09/17) Animal Dander (Verified Allergy, Unknown, ASTHMA, 04/09/17) Calcium (Verified Allergy, Unknown, ITCHY, 04/09/17) Montelukast (Verified Allergy, Unknown, ., 04/09/17) Phenobarbital (Verified Allergy, Unknown, DOESN'T REMEMBER WHAT HAPPENED, 04/09/17) Shellfish (Verified Allergy, Unknown, HIVES, 04/09/17) Sulfa Antibiotics (Verified Allergy, Unknown, HIVES/RASH TO SULFA DRUGS, ) Egg (Verified Adverse Reaction, Unknown, SORE THROAT, 04/09/17) Uncoded Allergies: METAL (Adverse Reaction, Intermediate, itchy raw skin burning, 10/29/16) Physical Exam Vital Signs Date Time Temp Pulse Resp B/P (MAP) Pulse Ox O2 Delivery O2 Flow Rate FiO2 06/15/17 15:16 75 18 135/69 94 Room Air 06/15/17 13:52 64 20 164/65 93 Room Air 06/15/17 13:08 72 06/15/17 12:38 36.4 74 20 165/75 94 Room Air Physical Exam Vital signs reviewed. General: Chronically ill appearing female, smells of tobacco, thin. HEENT: No scleral icterus, PERRLA, neck supple. Atraumatic. Cardiovascular: Regular rate and rhythm, no extra sounds. Pulmonary: Clear to auscultation bilaterally, normal work of breathing. Abdomen: Soft, nontender, nondistended, positive bowel sounds. Musculoskeletal: Atraumatic, no peripheral edema. Neurologic: Patient awake alert and oriented x 3. Antalgic gait with a left foot drop, leans to the left with ambulation, requires a two person assist, deep tendon reflexes were not able to be obtained, equal strength to the bilateral lower extremities with straight leg raise and dorsi/plantar flexion. Skin: Warm, dry, no rash Medical Decision & Procedures Laboratory Results 06/15/17 13:05 Red Blood Count 4.98, Mean Corpuscular Volume 89.0, Mean Corpuscular Hemoglobin 30.3, Mean Corpuscular Hemoglobin Concent 34.1, Mean Platelet Volume 10.5, Neutrophils (%) (Auto) 71.3, Lymphocytes (%) (Auto) 13.3, Monocytes (%) (Auto) 6.9, Eosinophils (%) (Auto) 8.2, Basophils (%) (Auto) 0.1, Neutrophils # (Auto) 8.30, Lymphocytes # (Auto) 1.54, Monocytes # (Auto) 0.80, Eosinophils # (Auto) 0.95, Basophils # (Auto) 0.01 06/15/17 13:05 Test 06/15/17 13:05 06/15/17 15:29 White Blood Count 11.62 K/uL (4.8-10.8) Red Blood Count 4.98 M/uL (4.2-5.4) Hemoglobin 15.1 g/dL (12.0-16.0) Hematocrit 44.3 % (37-47) Mean Corpuscular Volume 89.0 fL (80-100) Mean Corpuscular Hemoglobin 30.3 pg (25-34) Mean Corpuscular Hemoglobin Concent 34.1 g/dl (32-36) Platelet Count 325 K/uL (130-400) Mean Platelet Volume 10.5 fL (7.4-10.4) Neutrophils (%) (Auto) 71.3 % Lymphocytes (%) (Auto) 13.3 % Monocytes (%) (Auto) 6.9 % Eosinophils (%) (Auto) 8.2 % Basophils (%) (Auto) 0.1 % Neutrophils # (Auto) 8.30 K/uL (1.4-6.5) Lymphocytes # (Auto) 1.54 K/uL (1.2-3.4) Monocytes # (Auto) 0.80 K/uL (0.11-0.59) Eosinophils # (Auto) 0.95 K/uL (0-0.5) Basophils # (Auto) 0.01 K/uL (0-0.2) RDW Standard Deviation 41.2 fL (36.4-46.3) RDW Coefficient of Variation 12.7 % (11.5-14.5) Immature Granulocyte % (Auto) 0.2 % Immature Granulocyte # (Auto) 0.02 K/uL (0.00-0.02) Erythrocyte Sedimentation Rate 13 mm/hr (0-21) Urine Color DK YELLOW Urine Appearance CLEAR (CLEAR) Urine pH 5.5 (4.5-7.5) Urine Specific [place] 1.027 (1.000-1.030) Urine Protein 1+ (NEG) Urine Glucose (UA) 3+ (NEG) Urine Ketones NEG (NEG) Urine Occult Blood 1+ (NEG) Urine Nitrite NEG (NEG) Urine Bilirubin NEG (NEG) Urine Urobilinogen NEG (NEG) Urine Leukocyte Esterase NEG (NEG) Urine WBC (Auto) 1-5 /hpf (0-5) Urine RBC (Auto) 5-10 /hpf (0-4) Urine Hyaline Casts (Auto) 1-5 /lpf (0-5) Urine Epithelial Cells (Auto) >30 /lpf (0-5) Urine Bacteria (Auto) NEG (NEG) Anion Gap 4.0 mmol/L (3-11) Estimated GFR () 109.3 Estimated GFR (Non- 94.3 BUN/Creatinine Ratio 25.6 (10-20) Calcium Level 9.0 mg/dl (8.5-10.1) Magnesium Level 1.9 mg/dl (1.8-2.4) Total Bilirubin 0.3 mg/dl (0.2-1) Direct Bilirubin < 0.1 mg/dl (0-0.2) Aspartate Amino Transf (AST/SGOT) 10 U/L (15-37) Alanine Aminotransferase (ALT/SGPT) 24 U/L (12-78) Alkaline Phosphatase 93 U/L (45-117) C-Reactive Protein 0.61 mg/dl (0-0.29) Total Protein 6.6 gm/dl (6.4-8.2) Albumin 3.3 gm/dl (3.4-5.0) Prothrombin Time 13.3 SECONDS (9.0-12.0) Prothromb Time International Ratio 1.2 (0.9-1.1) Activated Partial Thromboplast Time 30.9 SECONDS (21.0-31.0) Partial Thromboplastin Ratio 1.2 Laboratory results per my review. Medications Administered Medications (Trade) Dose Ordered Sig/Mila Route Start Time Stop Time Status Last Admin Dose Admin Sodium Chloride 1,000 ml @ 125 mls/hr Q8H STAT IV 06/15/17 13:43 06/15/17 21:42 06/15/17 13:52 125 MLS/HR ECG Indication: weakness Rate (beats per minute): 67 Rhythm: normal sinus Findings: T-wave inversion (Anterolateral), no acute ischemic change, no ectopy , other (T wave flattening inferiorly) ED Course 1337: Past medical records reviewed. The patient was evaluated in room A3. A complete history and physical examination was performed. 1343: Ordered Sodium Chloride 1000 ml @ 125 mls/hr IV. Medical Decision Differential diagnosis: Etiologies such as musculoskeletal, disc herniation, fracture, aortic disease, metastatic disease, cord compression, discitis, infection, renal colic, gastrointestinal, acute exacerbation of chronic back pain, sciatica, cauda equina, CVA, as well as others were entertained. This patient was evaluated and appeared to be in no significant distress. IV access was obtained and laboratory work was drawn. The patient was placed on the bessemer bottom maker and found to be in a normal sinus rhythm. She was hydrated with normal saline solution. The patient has a chronic left foot drop. She is not able to balance herself, stumbles with any independent ambulation. She required a 2 person persistent bathroom to avoid falling. She states her back cannot hold her up anymore. She denies any loss of bladder function, she does have some urinary incontinence issues at baseline. Laboratory evaluation is fairly unrevealing with normal inflammatory markers, normal white count. INR is 1.2. Head CT and MRI combo of the lumbar spine are pending at this time. The case has been signed out to Dr. Borrero at the change of shift, pending these studies. Please see his note for final disposition. Medication Reconcilliation Current Medication List: was personally reviewed by me Blood Pressure Screening Patient's blood pressure: Elevated blood pressure Blood pressure disposition: Elevated BP felt to be situational Impression Primary Impression: Ambulatory dysfunction Additional Impressions: Lower extremity weakness Gait, antalgic Scribe Attestation The scribe's documentation has been prepared under my direction and personally reviewed by me in its entirety. I confirm that the note above accurately reflects all work, treatment, procedures, and medical decision making performed by me. Departure Information Patient Instructions My [facility] Problem Qualifiers
[2017-06-15 13:58] LABS: BASO % 0.1 %; BASO ABS # 0.01 K/uL (0-0.2); COMPLETE YES; EOS % 8.2 %; HEMATOCRIT 44.3 % (37-47); IG% 0.2 %; LYMPH % 13.3 %; LYMPH ABS # 1.54 K/uL (1.2-3.4); MEAN CORPUSCULAR HEMOGLOBIN 30.3 pg (25-34); MEAN CORPUSCULAR HGB CONC 34.1 g/dl (32-36); MEAN PLATELET VOLUME 10.5 fL (7.4-10.4); MONO % 6.9 %; NEUT % 71.3 %; PLATELET COUNT 325 K/uL (130-400); RED BLOOD COUNT 4.98 M/uL (4.2-5.4); WHITE BLOOD COUNT 11.62 K/uL (4.8-10.8)
[2017-06-15 14:06] LABS: ALT/SGPT 24 U/L (12-78); BLOOD UREA NITROGEN 14 mg/dl (7-18); BUN/CREATININE RATIO 25.6 (10-20); CARBON DIOXIDE 29 mmol/L (21-32); CHLORIDE 106 mmol/L (98-107); CREATININE 0.54 mg/dl (0.60-1.20); GLUCOSE 257 mg/dl (70-99); MAGNESIUM 1.9 mg/dl (1.8-2.4); POTASSIUM 3.5 mmol/L (3.5-5.1); SODIUM 139 mmol/L (136-145)
[2017-06-15 14:15] LABS: ALKALINE PHOSPHATASE 93 U/L (45-117); AST/SGOT 10 U/L (15-37); C-REACTIVE PROTEIN 0.61 mg/dl (0-0.29)
[2017-06-15 14:17] LABS: URINE APPEARANCE CLEAR (CLEAR); URINE BILIRUBIN NEG (NEG); URINE COLOR DK YELLOW; URINE EPITHELIAL CELL AUTO >30 /lpf (0-5); URINE NITRITE NEG (NEG); URINE PH 5.5 (4.5-7.5); URINE SPECIFIC GRAVITY 1.027 (1.000-1.030); UROBILINOGEN NEG (NEG); ZZUR CULT IF INDIC CLEAN CATCH NO
[2017-06-15 14:27] LABS: MANUAL MICROSCOPIC REQUIRED? NO; REVIEW REQ? NO
[2017-06-15 15:45] LABS: INR 1.2 (0.9-1.1); PARTIAL THROMBOPLASTIN RATIO 1.2; PROTHROMBIN TIME (PATIENT) 13.3 SECONDS (9.0-12.0)
--- NOTE | 2017-06-15 16:04 | DIAGNOSTIC IMAGING REPORT ---
CT OF THE HEAD WITHOUT CONTRAST CLINICAL HISTORY: Gait imbalance COMPARISON STUDY: Head CT and MRI of the brain July 30, 2016. CT DOSE: 638.56 mGycm TECHNIQUE: Helical axial images of the head were obtained without IV contrast. Automated exposure control was utilized for the study. A dose lowering technique was utilized adhering to the principles of ALARA. FINDINGS: No acute intracranial hemorrhage, midline shift or mass effect is present. Ventricular system is stable. Basilar cisterns are patent. An old right parietal lobe infarct is again noted. White matter hypodensities suggest moderate small vessel disease. There are no findings to suggest acute dural sinus thrombosis or acute territorial infarct. There are postsurgical findings within the sinuses. There are no significant calvarial abnormalities. IMPRESSION: No acute intracranial findings. No change in appearance of the brain. Electronically signed by: Thomas Alexis M.D. 06/15/2017 4:02 PM Dictated Date/Time: 06/15/2017 4:00 PM
[2017-06-15 17:15] VITALS: BP 179/81; PULSE 74; O2SAT 92
--- NOTE | 2017-06-15 17:34 | DIAGNOSTIC IMAGING REPORT ---
MRI OF THE LUMBAR SPINE WITHOUT CONTRAST CLINICAL HISTORY: Multiple lumbar surgeries, gait imbalance, lower extremity weakness. COMPARISON STUDY: Lumbar spine MRI February 15, 2016. TECHNIQUE: Utilizing a 1.5 Jammie magnet and dedicated coil, multiplanar, multiecho imaging of the lumbar spine was performed without IV contrast. FINDINGS: For purposes of numbering on this exam, the L5-S1 disc space is assigned to axial image 23 of 25. There are findings consistent with a posterior decompression, L5-S1 discectomy and L4-S1 bilateral pedicle screw fusion. There is no fracture or suspicious marrow replacement. There is no intracanalicular mass or fluid collection. Conus terminates at the L1-L2 level. L1-2: Central canal and neural foramen are patent. L2-3: Disc bulge, ligamentous hypertrophy and facet arthrosis are present. There is mild narrowing of the central canal, lateral recesses and neural foramen. L3-4: Central canal and neural foramen are patent. The synovial cyst shown on exam of February 15, 2016 is no longer visualized. L4-5: Central canal and neural foramen are patent. L5-S1: There is a disc bulge with small central disc protrusion. This is unchanged. The left neural foramen is patent. There is mild to moderate narrowing of the right neural foramen which is unchanged since MRI of February 15, 2016. IMPRESSION: 1. Status post L5-S1 discectomy and L4-S1 bilateral pedicle screw fusion with decompression. 2. No acute abnormality within the lumbar spine by MRI. 3. Mild narrowing of the central canal, lateral recesses and neural foramen at L2-L3 due to disc bulge, ligamentous hypertrophy and facet arthrosis. 4. Mild to moderate narrowing of the right neural foramen at L5-S1 which is similar to prior MRI. Electronically signed by: Thomas Alexis M.D. 06/15/2017 5:33 PM Dictated Date/Time: 06/15/2017 5:22 PM
--- NOTE | 2017-06-15 22:15 | EMERGENCY ROOM VISIT NOTE ---
ED Visit Note First contact with patient: 16:08 71 yr old female signed out to me by Dr Foote awaiting MRI of lumbar spine. Patient with 1 week of weakness in legs, veering to left, and loss of bladder control. Unable to ambulate without assistance which is new. She has history of multiple lumbar surgeries as well as CVAs. She is subtherapeutic INR. She has no acute surgical findings on MRI, see complete read on chart. I discussed with Dr Limon to make him aware of findings along with exam and agrees to eval as inpatient tomorrow. Had very long discussion with patient regarding coming in to hospital for further work-up, making very clear to her and my concerns there is something very grave going on and that we have not ruled out stroke amongst multiple other things that could cause permanent disability or . Initially agreeable to coming in. Hospital evaluated here. Then during a time of high patient volume while I was in trauma bay resuscitating a patient, she apparently decided to leave AMA. Patient wanting to leave immediately per nursing and thus I was unable to get back to patient prior to her leaving with . Of note, given earlier conversations with patient I feel I had vastly revealed all risks of going home already.
[2017-06-19] MEDS ORDERED: CYM/30 PO (07:10)
[2017-07-29] MEDS ORDERED: OXYC1TAB3 PO (13:26)
[2017-08-04] MEDS ORDERED: PREG1CAP70 PO (12:09)
[2017-08-04] MEDS ORDERED: IPRA1AER2 INH (14:46)
[2017-08-04] MEDS ORDERED: DTR5 PO (15:32)
[2017-08-04] MEDS ORDERED: VALA1TAB31 PO (15:32)
[2017-08-04] MEDS ORDERED: OMEP20CA9 PO (15:32)
[2017-08-04] MEDS ORDERED: TRAZ100T29 PO (15:39)
[2017-08-22] MEDS ORDERED: DILT120C99 PO (11:16)
[2017-08-22] MEDS ORDERED: LINA1CAP PO (11:16)
[2017-08-22] MEDS ORDERED: INSDGI SC (11:16)
[2017-08-22] MEDS ORDERED: PREG1CAP34 PO (11:16)
[2017-08-26] MEDS ORDERED: MECL1TAB42 PO (11:24)
[2017-08-26] MEDS ORDERED: DILT-113 PO (11:24)
[2017-08-26] MEDS ORDERED: WARF4TAB8 PO (11:24)
[2017-08-26] MEDS ORDERED: DULO60CA44 PO (11:24)
[2017-08-26] MEDS ORDERED: LBT/100 PO (11:24)
[2017-08-26] MEDS ORDERED: LEVA45AE INH (11:24)
[2017-08-26] MEDS ORDERED: SENN-61 PO (11:24)
[2017-08-26] MEDS ORDERED: PREG1CAP70 PO (11:24)
[2017-08-26] MEDS ORDERED: LINA72CA PO (11:24)
[2017-08-26] MEDS ORDERED: TRAZ100T29 PO (11:24)
[2017-08-26] MEDS ORDERED: IPRA1AER2 INH (11:24)
[2017-08-26] MEDS ORDERED: EZET10TA63 PO (11:24)
[2017-08-26] MEDS ORDERED: CYCL0.052 OPB (11:24)
== END 2017-06-15 19:25 | disposition left against medical advice (07) ==
LOC: C.EDB 12:36 → C.EDA 19:25
DX: R26.89 Other abnormalities of gait and mobility (principal); M62.81 Muscle weakness (generalized); Z86.73 Personal history of transient ischemic attack (TIA), and cerebral infarction without residual deficits; J44.9 Chronic obstructive pulmonary disease, unspecified; E11.9 Type 2 diabetes mellitus without complications; J45.909 Unspecified asthma, uncomplicated; Z80.9 Family history of malignant neoplasm, unspecified; Z83.3 Family history of diabetes mellitus; Z83.79 Family history of other diseases of the digestive system; Z82.49 Family history of ischemic heart disease and other diseases of the circulatory system; F17.210 Nicotine dependence, cigarettes, uncomplicated; Z79.82 Long term (current) use of aspirin; Z79.4 Long term (current) use of insulin; Z79.01 Long term (current) use of anticoagulants; Z79.899 Other long term (current) drug therapy

== ENCOUNTER 2017-06-17 17:15 | Observation (INO) | payer OTHER ==
[~2017-06-17] VITALS: Ht 160 cm; Wt 55.0 kg
[~2017-06-17 17:15] MED LIST changes: -CANA1TAB PO; -CYAN10005 PO; -FLUT0.15 NAE; -LEVA45AE INH; +NITR1CAP32 PO; -ONDA8TAB6 PO; -OXY/15 PO; -PRAV40TA2 PO; -ZTA10 PO
[2017-06-17 18:30] LABS: BASO % 0.2 %; BASO ABS # 0.02 K/uL (0-0.2); COMPLETE YES; EOS % 9.1 %; HEMATOCRIT 44.2 % (37-47); IG% 0.2 %; LYMPH % 21.9 %; LYMPH ABS # 2.64 K/uL (1.2-3.4); MEAN CELL VOLUME 88.9 fL (80-100); MEAN CORPUSCULAR HEMOGLOBIN 30.4 pg (25-34); MEAN CORPUSCULAR HGB CONC 34.2 g/dl (32-36); MONO % 7.2 %; NEUT % 61.4 %; PLATELET COUNT 333 K/uL (130-400); RED BLOOD COUNT 4.97 M/uL (4.2-5.4); WHITE BLOOD COUNT 12.04 K/uL (4.8-10.8)
[2017-06-17 18:40] LABS: INR 2.6 (0.9-1.1); PARTIAL THROMBOPLASTIN RATIO 1.3; PROTHROMBIN TIME (PATIENT) 29.4 SECONDS (9.0-12.0)
[2017-06-17 18:48] LABS: BUN/CREATININE RATIO 22.6 (10-20); CALCIUM 9.1 mg/dl (8.5-10.1); CREATININE 0.7 mg/dl (0.60-1.20); MAGNESIUM 1.9 mg/dl (1.8-2.4); PHOSPHORUS 3.1 mg/dl (2.5-4.9); POTASSIUM 3.5 mmol/L (3.5-5.1)
[2017-06-17] MEDS ORDERED: NITROGLYCERIN 0.4 MG SL PER TAB CHARGE UT PRN (20:30)
[2017-06-17] MEDS ORDERED: MECLIZINE HCL 12.5 MG TAB PO PRN (20:30)
[2017-06-17] MEDS ORDERED: OXYBUTYNIN CHLORIDE 5 MG TAB PO PRN (20:30)
[2017-06-17] MEDS ORDERED: FUROSEMIDE 20 MG TAB PO PRN (20:30)
[2017-06-17] MEDS ORDERED: LORAZEPAM 0.5 MG TAB PO PRN (20:30)
[2017-06-17] MEDS ORDERED: IPRATROPIUM BROMIDE/ALBUTEROL respimat INH INH PRN (20:30)
[2017-06-17] MEDS ORDERED: TRAZODONE HCL 50 MG TAB PO SCH (21:00)
[2017-06-17] MEDS ORDERED: GLUCAGON FOR INJ 1 MG VIAL SQ PRN (21:00)
[2017-06-17] MEDS ORDERED: GLUCOSE 40% GEL 15 GM TUBE PO PRN (21:00)
[2017-06-17] MEDS ORDERED: DEXTROSE 50% 50 ML SYR IV PRN (21:00)
[2017-06-17] MEDS ORDERED: GLUCOSE 10 TABS/TUBE PO PRN (21:00)
[2017-06-17] MEDS: INSULIN ASPART 100 UNITS/ML 3 ML PEN SC SCH (21:00)
[2017-06-17] MEDS ORDERED: IV FLUIDS COMPLETED PRN (21:00)
[2017-06-17 21:40] VITALS: BP 157/65; PULSE 62; TEMP 36.7; O2SAT 93; Ht 160 cm; Wt 55.0 kg
[2017-06-17] MEDS ORDERED: SENNA 8.6 MG TAB PO SCH (22:00)
[2017-06-17] MEDS ORDERED: WARFARIN SOD 4 MG TAB PO SCH (22:00)
--- NOTE | 2017-06-17 22:04 | EMERGENCY ROOM VISIT NOTE ---
History Report prepared by Stacy: Jose Dubon Under the Supervision of: Dr. Sawyer Borrero M.D. First contact with patient: 17:47 Chief Complaint: BACK PAIN Stated Complaint: UNCOORDINATED, PAIN IN BACK AND NECK History of Present Illness The patient is a 71 year old female who presents to the Emergency Room with complaints of persistent bilateral leg weakness beginning 1.5 weeks ago. She also complains of back pain. She has a history of multiple strokes and is on Coumadin. The patient notes that she has been having some weakness in her legs for several years, but states that it worsened recently. Source of History: patient Onset: 1.5 weeks ago Position: leg (bilateral) Quality: other (weakness) Timing: other (persistent) Associated Symptoms: + back pain Review of Systems See HPI for pertinent positives & negatives. A total of 10 systems reviewed and were otherwise negative. Past Medical & Surgical Medical Problems: (1) Asthma (2) Chronic obstructive lung disease (3) Community acquired pneumonia (4) Diabetes mellitus (5) Gait difficulty (6) GI bleed (7) Pneumonia (8) TIA (transient ischemic attack) Family History Cancer Diabetes mellitus Gallbladder disease Heart disease Hypertension Social History Smoking Status: Current Every Day Smoker Alcohol Use: occasionally Drug Use: none Marital Status: Housing Status: lives with family Occupation Status: retired Current/Historical Medications Scheduled Aspirin (Aspirin), 325 MG PO DAILY Diltiazem Hcl Coated Beads (Cartia Xt), 180 MG PO BID Glipizide (Glipizide ER), 20 MG PO QAM Hydralazine Hcl (Apresoline), 25 MG PO UD Insulin Glargine (Lantus Solostar), 30 UNITS SC QAM Labetalol HCl (Labetalol HCl), 100 MG PO BID Nitrofurantoin Macrocrystals (Macrodantin), 100 MG PO BID Omeprazole (Prilosec), 20 MG PO BID Pregabalin (Lyrica), 150 MG PO BID Senna (Senokot), 43 MG PO QPM Trazodone Hcl (Trazodone), 150 MG PO HS Warfarin Sod (Jantoven), 4 MG PO Q2D Warfarin Sod (Jantoven), 6 MG PO Q2D Scheduled PRN Cyclosporine (Ophth) (Restasis), 1 DROP OP BID PRN for DRYNESS Diphenoxylate/Atropine (Lomotil 2.5-0.025 mg), 2 TABS PO QID PRN for Diarrhea Furosemide (Lasix), 20 MG PO DAILY PRN for Fluid Accumulation Ipratropium-Albuterol (Combivent Respimat), 1 PUFF INH QID PRN for Shortness of Breath Lorazepam (Lorazepam), 0.5 MG PO BID PRN for Anxiety Meclizine Hcl (Meclizine Hcl), 25 MG PO DAILY PRN for Dizziness or Vertigo Nitroglycerin (Nitrostat), 0.4 MG UT UD PRN for Chest Pain Oxybutynin Chloride (Oxybutynin Chloride), 5 MG PO UD PRN for Bladder pain Tramadol HCl (Tramadol HCl), 100 MG PO Q6H PRN for Pain Valacyclovir Hcl (Valtrex), 1 GM PO UD PRN for Cold Sores Allergies Coded Allergies: Calcium Carbonate (Verified Allergy, Intermediate, OYSTER SHELL-ITCHY, HIVES, 04/09/17) Nylon (Verified Allergy, Intermediate, HIVES, 04/09/17) Adhesives (Verified Allergy, Mild, RED ITCHY RASH, NYLON = ITCHY, 04/09/17) Animal Dander (Verified Allergy, Unknown, ASTHMA, 04/09/17) Calcium (Verified Allergy, Unknown, ITCHY, 04/09/17) Montelukast (Verified Allergy, Unknown, ., 04/09/17) Phenobarbital (Verified Allergy, Unknown, DOESN'T REMEMBER WHAT HAPPENED, 04/09/17) Shellfish (Verified Allergy, Unknown, HIVES, 04/09/17) Sulfa Antibiotics (Verified Allergy, Unknown, HIVES/RASH TO SULFA DRUGS, ) Egg (Verified Adverse Reaction, Unknown, SORE THROAT, 04/09/17) Uncoded Allergies: METAL (Adverse Reaction, Intermediate, itchy raw skin burning, 10/29/16) Physical Exam Vital Signs Date Time Temp Pulse Resp B/P (MAP) Pulse Ox O2 Delivery O2 Flow Rate FiO2 06/17/17 19:15 74 18 138/74 95 Room Air 06/17/17 17:28 36.5 76 18 143/72 95 Room Air Physical Exam GENERAL: Patient is uncomfortable appearing and in mild distress. Difficulty with transfer from chair to bed. Smells of tobacco. HEENT: No acute trauma, normocephalic atraumatic, mucous membranes moist, no nasal congestion, no scleral icterus. NECK: No stridor, no adenopathy, no meningismus, trachea is midline. LUNGS: No dyspnea. Clear to auscultation and equal bilaterally. No wheeze, no rhonchi. HEART: Regular rate and rhythm. No murmurs, rubs, gallops appreciated. ABDOMEN: Soft, nontender, bowel sounds positive, no masses appreciated, no peritonitis. BACK: No midline tenderness, no CVA tenderness EXTREMITIES: Normal motion all extremities, no cyanosis, no edema. NEUROLOGIC: Alert and oriented, no acute motor or sensory deficits, no focal weakness, cranial nerves grossly intact. SKIN: No rash, no jaundice, no diaphoresis. Medical Decision & Procedures Laboratory Results 06/17/17 18:20 Red Blood Count 4.97, Mean Corpuscular Volume 88.9, Mean Corpuscular Hemoglobin 30.4, Mean Corpuscular Hemoglobin Concent 34.2, Mean Platelet Volume 10.0, Neutrophils (%) (Auto) 61.4, Lymphocytes (%) (Auto) 21.9, Monocytes (%) (Auto) 7.2, Eosinophils (%) (Auto) 9.1, Basophils (%) (Auto) 0.2, Neutrophils # (Auto) 7.38, Lymphocytes # (Auto) 2.64, Monocytes # (Auto) 0.87, Eosinophils # (Auto) 1.10, Basophils # (Auto) 0.02 06/17/17 18:20 Test 06/17/17 18:20 White Blood Count 12.04 K/uL (4.8-10.8) Red Blood Count 4.97 M/uL (4.2-5.4) Hemoglobin 15.1 g/dL (12.0-16.0) Hematocrit 44.2 % (37-47) Mean Corpuscular Volume 88.9 fL (80-100) Mean Corpuscular Hemoglobin 30.4 pg (25-34) Mean Corpuscular Hemoglobin Concent 34.2 g/dl (32-36) Platelet Count 333 K/uL (130-400) Mean Platelet Volume 10.0 fL (7.4-10.4) Neutrophils (%) (Auto) 61.4 % Lymphocytes (%) (Auto) 21.9 % Monocytes (%) (Auto) 7.2 % Eosinophils (%) (Auto) 9.1 % Basophils (%) (Auto) 0.2 % Neutrophils # (Auto) 7.38 K/uL (1.4-6.5) Lymphocytes # (Auto) 2.64 K/uL (1.2-3.4) Monocytes # (Auto) 0.87 K/uL (0.11-0.59) Eosinophils # (Auto) 1.10 K/uL (0-0.5) Basophils # (Auto) 0.02 K/uL (0-0.2) RDW Standard Deviation 41.3 fL (36.4-46.3) RDW Coefficient of Variation 12.8 % (11.5-14.5) Immature Granulocyte % (Auto) 0.2 % Immature Granulocyte # (Auto) 0.03 K/uL (0.00-0.02) Erythrocyte Sedimentation Rate 11 mm/hr (0-21) Prothrombin Time 29.4 SECONDS (9.0-12.0) Prothromb Time International Ratio 2.6 (0.9-1.1) Activated Partial Thromboplast Time 34.8 SECONDS (21.0-31.0) Partial Thromboplastin Ratio 1.3 Anion Gap 4.0 mmol/L (3-11) Est Creatinine Clear Calc Drug Dose 60.1 ml/min Estimated GFR () 100.3 Estimated GFR (Non- 86.6 BUN/Creatinine Ratio 22.6 (10-20) Calcium Level 9.1 mg/dl (8.5-10.1) Phosphorus Level 3.1 mg/dl (2.5-4.9) Magnesium Level 1.9 mg/dl (1.8-2.4) Laboratory results as reviewed by me. ED Course 1748: The patient was evaluated in room B12B. A complete history and physical exam was performed. Medical Decision Differential diagnosis: Etiologies such as metabolic, infection, hypo/hyperglycemia, electrolyte abnormalities, cardiac sources, intracerebral event, toxicologic, neurologic, as well as others were entertained. 71 yr old female with long history of lumbar issues and strokes with many previous surgeries and is on coumadin. Known to me from a few days ago when she left AMA. She is still unable to ambulate correctly and notes she is walking in to [facility]. Already with CT head and MRI lumbar spine. Labs unremarkable other than INR is now therapeutic which it was not previously. Discussed with hospitalist to evaluate further given fact she is having ambulatory dysfunction. Medication Reconcilliation Current Medication List: was personally reviewed by me Blood Pressure Screening Patient's blood pressure: Elevated blood pressure Blood pressure disposition: Elevated BP felt to be situational Consults Time Called: 174 Consulting Physician: Dr. Navid NIEVES Returned Call: [phone] Discussed the patient's case. Dr. Shoemaker recommends that the patient receive laboratory work before consultation with the hospitalists. Additional Consults: Time Called: [id number] Consulted Physician: Dr. Jesus NIEVES Returned Call: [phone] Additional Comments: Discussed the patient's case. The patient will be evaluated for further treatment and disposition. Impression Primary Impression: Intractable back pain Additional Impressions: Ataxia Weakness Scribe Attestation The scribe's documentation has been prepared under my direction and personally reviewed by me in its entirety. I confirm that the note above accurately reflects all work, treatment, procedures, and medical decision making performed by me. Departure Information Dispostion Being Evaluated By Hospitalist Referrals No Doctor, Assigned (PCP) Patient Instructions My [facility] Problem Qualifiers
--- NOTE | 2017-06-17 22:12 | HISTORY & PHYSICAL EXAMINATION ---
DATE OF ADMISSION: 06/17/2017 REASON FOR THE ADMISSION: Ataxia and lower back pain. HISTORY OF PRESENT ILLNESS: This is a 71-year-old female with a history of lumbar degenerative disease, previous lumbar surgery, COPD, chronic back pain, previous CVA, hypertension. The patient presented 3 days ago with complaints of difficulty ambulating and lower back pain. She is only able to take a couple of steps at a time without assistance and has a tendency to fall, either left or right. She describes chronic lower back pain, which has been slightly worse over the last 3 days. She had a lumbar MRI while in the Emergency Department 3 days prior, which did not show any acute changes. She was due to be admitted for an MRI of the brain and an evaluation by her orthopedist; however, she decided to sign out against medical advice. She returns 3 days later with identical complaints, stating that she would like to be admitted to the hospital. She denies any fevers, rigors, nausea, vomiting, diaphoresis, headaches or visual disturbances. The patient is well known to the medical service from multiple visits to the Emergency Department and multiple admissions. She does have a tendency to sign herself out against medical advice. PAST MEDICAL HISTORY: 1. Insulin-dependent diabetes. 2. Osteoarthritis. 3. COPD. 4. GERD. 5. Anxiety. 6. Hyperlipidemia. 7. Hypertension. 8. History of CVA and TIA. 9. CAD with possible history of an IN. 10. Multiple DVTs MEDICATION: The list is extensive and includes the followin. Lomotil 2 tablets q.i.d. p.r.n. 2. Valacyclovir 1 mg p.r.n. cold sores. 3. Coumadin 4 mg alternating with 6 mg every other day. 4. Glipizide 20 mg q.a.m. 5. ASA 325 mg daily. 6. Cyclosporine eyedrops. 7. Diltiazem 180 mg b.i.d. 8. Lasix 20 mg daily. 9. Hydralazine 25 mg daily. 10. Insulin Glargine 30 units a.m. 11. Combivent 1 puff q.i.d. 12. Labetalol 100 mg b.i.d. 13. Lorazepam 0.5 mg b.i.d. 14. Meclizine 25 mg p.r.n. 15. Nitrofurantoin 100 mg b.i.d. 16. NTG 0.4 mg p.r.n. chest pain. 17. Omeprazole 20 mg b.i.d. 18. Oxybutynin 5 mg daily. 19. Lyrica 150 mg b.i.d. 20. Senna 8.6 mg q.p.m. 21. Tramadol 100 mg q. 6 hours p.r.n. 22. Trazodone 150 mg at bedtime. FAMILY HISTORY: Positive for diabetes, CAD, CVA. SOCIAL HISTORY: The patient continues to smoke 1 pack every day, despite her diagnosis of COPD. She does not drink alcohol. She lives at home with her . REVIEW OF SYSTEMS: A 14-point review of systems is completed. There are no additional complaints aside from what is listed in the HPI. PHYSICAL EXAMINATION: VITAL SIGNS: Blood pressure is 143/72, heart rate 74, respirations 18, afebrile, satting at 95% on room air. GENERAL: This is a very thin elderly, female. She is awake, alert, oriented x3, cooperative and in no distress. HEAD AND NECK: No JVD, bruits, thrush or icterus. HEART: S1, 2, regular, no murmurs. LUNGS: Clear to auscultation bilaterally with poor bilateral air entry and no audible wheezing. ABDOMEN: Nontender, nondistended. Bowel sounds present. EXTREMITIES: Show no clubbing, cyanosis or edema with positive pulses. NEUROLOGIC: She is awake and oriented, maintains her coordination, does not exhibit any focal deficits. She is unable to ambulate without assistance due to a loss of balance. SKIN: No rashes or ulcers noted. LABORATORY DATA: White count 12, hemoglobin 15, platelets 333. Sodium 141, potassium 3.5, chloride 105, CO2 32, BUN 16, creatinine 0.7, glucose 238. INR is 2.6. The MRI of the lumbar spine is read follows: 1. L5-S1 discectomy and L4-S1 bilateral pedicle screw fusion with decompression. 2. No acute abnormality with the lumbar spine MRI. 3. Mild narrowing of central canal lateral recesses and neuro foramen at L2-L3 due to disc bulge, ligamentous hypertrophy and facet arthrosis. 4. [id number] narrowing of the right neuro foramen at L5-S1, which is similar to prior MRI. A CT of the brain is negative for acute findings. ASSESSMENT AND PLAN: This is a 71-year-old female with a medical history of diabetes, lumbar stenosis, CVA/TIA, hypertension, hyperlipidemia, chronic back pain. She presents with 3 days of progressive gait dysfunction, where she loses her balance and feels weak in her lower extremities on any attempt to ambulate. The patient is admitted with the followin. Ambulatory dysfunction. The cause is unclear, although the likely culprit would be her lumbar spine rather than her brain. We will obtain an MRI of the brain with and without gadolinium and if there are any abnormalities, would consult neurology. She will remain on her Coumadin and her ASA in the interim. She will be evaluated by her orthopedic surgeon tomorrow a.m. to review the results of the MRI and advise on any further studies, if necessary. She will require PT and OT if cleared by orthopedics and no intervention is imminent. 2. History of deep venous thromboses. The patient is on Coumadin. Her INR is therapeutic; however, this places her at greater risk of significant complications with any falls. 3. Chronic obstructive pulmonary disease. The patient will receive her Combivent as scheduled. She has been advised multiple times on smoking cessation, but does not appear interested. 4. Chronic back pain. She uses tramadol only now. She does not want to take any narcotics, as she states that they do not help, regardless. 5. Diabetes. She has been placed on a sliding scale with a.m. Lantus. 6. Hypertension. She will continue her home medications, as prescribed, including diltiazem and hydralazine. Total time for this admit, including chart review, discussion with the ER physician, review of labs, imaging, multiple previous admissions and extensive records, 40 minutes. The patient is a full code. MTDD
[2017-06-17 23:08] VITALS: BP 148/67; PULSE 62; TEMP 36.7; O2SAT 93
[2017-06-17] MEDS: PREGABALIN 150 MG CAP PO SCH (23:25)
[2017-06-17] MEDS: PANTOprazole SOD 40 MG TAB PO SCH (23:26)
[2017-06-17] MEDS: NITROFURANTOIN MACROCRYSTALS 50 MG CAP PO SCH (23:26)
[2017-06-18 07:57] VITALS: BP 172/76; PULSE 90; TEMP 36.8; O2SAT 94
[2017-06-18 08:01] VITALS: O2SAT 94
[2017-06-18] MEDS: NITROFURANTOIN MACROCRYSTALS 50 MG CAP PO SCH (08:20)
[2017-06-18] MEDS: PANTOprazole SOD 40 MG TAB PO SCH (08:20)
[2017-06-18] MEDS: PREGABALIN 150 MG CAP PO SCH (08:21)
[2017-06-18] MEDS: INSULIN ASPART 100 UNITS/ML 3 ML PEN SC SCH ×3 (08:27→18:44)
[2017-06-18] MEDS ORDERED: ASPIRIN 325 MG ECTAB PO SCH (09:00)
[2017-06-18] MEDS ORDERED: DILTIAZEM HCL 180 MG CAPCR PO SCH (09:00)
[2017-06-18] MEDS ORDERED: LABETALOL HCL 100 MG TAB PO SCH (09:00)
[2017-06-18] MEDS ORDERED: INSULIN GLARGINE SOLOSTAR 100 UNITS/ML 3 ML PEN SC SCH (09:00)
[2017-06-18 09:32] LABS: HEMATOCRIT 45.9 % (37-47); MEAN CELL VOLUME 88.6 fL (80-100); MEAN CORPUSCULAR HEMOGLOBIN 31.5 pg (25-34); MEAN CORPUSCULAR HGB CONC 35.5 g/dl (32-36); MEAN PLATELET VOLUME 10.2 fL (7.4-10.4); PLATELET COUNT 306 K/uL (130-400); RED BLOOD COUNT 5.18 M/uL (4.2-5.4); WHITE BLOOD COUNT 11.74 K/uL (4.8-10.8)
[2017-06-18] MEDS: TRAMADOL HCL 50 MG TAB PO PRN ×2 (09:35→18:56)
[2017-06-18 09:45] LABS: INR 2.2 (0.9-1.1); PROTHROMBIN TIME (PATIENT) 24.2 SECONDS (9.0-12.0)
[2017-06-18 09:55] LABS: CREATININE 0.67 mg/dl (0.60-1.20)
[2017-06-18 09:56] LABS: BUN/CREATININE RATIO 18.8 (10-20); CALCIUM 9.5 mg/dl (8.5-10.1); POTASSIUM 3.7 mmol/L (3.5-5.1)
[2017-06-18 10:00] VITALS: BP 177/64
[2017-06-18] MEDS ORDERED: NURSING VERBAL MED ORDER ONE ×2 (10:15→10:45)
--- NOTE | 2017-06-18 12:47 | Orthopedic Consultation ---
Orthopedic Consultation Date of Consultation: Jun 18, 2017. Attending Physician: Tano Alves M.D. Reason for Consultation: Chronic lower back pain and gait disturbance History of Present Illness This is a 71-year-old female well known to us. She presented to the emergency room yesterday stating she has had multiple falls due to her left leg giving out as well as her head "feels tight". She has no true radicular leg pain. She has a chronic left foot drop status post lumbar decompression fusion [place] 2-1/2 years ago. She reports she has an AFO brace but is not consistent with wearing it. She does have a walker at home but normally ambulates independently. She has chronic back pain which she takes tramadol for. She notes urinary stress incontinence. No true loss of control of bowels or bladder. Past Medical/Surgical History Medical Problems: (1) Acute renal failure Status: Acute (2) Ambulatory dysfunction Status: Acute (3) Ataxia Status: Acute (4) Colitis Status: Acute (5) Elevated LFTs Status: Acute (6) Gait, antalgic Status: Acute (7) Hyperlipidemia Status: Acute (8) Intractable back pain Status: Acute (9) Lower extremity weakness Status: Acute (10) Weakness Status: Acute Family History Cancer Diabetes mellitus Gallbladder disease Heart disease Hypertension Social History Smoking Status: Current Every Day Smoker Drug Use: none Marital Status: Housing Status: lives with family Occupation Status: retired Allergies Coded Allergies: Calcium Carbonate (Verified Allergy, Intermediate, OYSTER SHELL-ITCHY, HIVES, 04/09/17) Nylon (Verified Allergy, Intermediate, HIVES, 04/09/17) Adhesives (Verified Allergy, Mild, RED ITCHY RASH, NYLON = ITCHY, 04/09/17) Animal Dander (Verified Allergy, Unknown, ASTHMA, 04/09/17) Calcium (Verified Allergy, Unknown, ITCHY, 04/09/17) Montelukast (Verified Allergy, Unknown, ., 04/09/17) Phenobarbital (Verified Allergy, Unknown, DOESN'T REMEMBER WHAT HAPPENED, 04/09/17) Shellfish (Verified Allergy, Unknown, HIVES, 04/09/17) Sulfa Antibiotics (Verified Allergy, Unknown, HIVES/RASH TO SULFA DRUGS, ) Egg (Verified Adverse Reaction, Unknown, SORE THROAT, 04/09/17) Uncoded Allergies: METAL (Adverse Reaction, Intermediate, itchy raw skin burning, 10/29/16) Home Medications Scheduled Aspirin (Aspirin), 325 MG PO DAILY Diltiazem Hcl Coated Beads (Cartia Xt), 180 MG PO BID Glipizide (Glipizide ER), 20 MG PO QAM Hydralazine Hcl (Apresoline), 25 MG PO UD Insulin Glargine (Lantus Solostar), 30 UNITS SC QAM Labetalol HCl (Labetalol HCl), 100 MG PO BID Nitrofurantoin Macrocrystals (Macrodantin), 100 MG PO BID Omeprazole (Prilosec), 20 MG PO BID Pregabalin (Lyrica), 150 MG PO BID Senna (Senokot), 43 MG PO QPM Trazodone Hcl (Trazodone), 150 MG PO HS Warfarin Sod (Jantoven), 4 MG PO Q2D Warfarin Sod (Jantoven), 6 MG PO Q2D Scheduled PRN Cyclosporine (Ophth) (Restasis), 1 DROP OP BID PRN for DRYNESS Diphenoxylate/Atropine (Lomotil 2.5-0.025 mg), 2 TABS PO QID PRN for Diarrhea Furosemide (Lasix), 20 MG PO DAILY PRN for Fluid Accumulation Ipratropium-Albuterol (Combivent Respimat), 1 PUFF INH QID PRN for Shortness of Breath Lorazepam (Lorazepam), 0.5 MG PO BID PRN for Anxiety Meclizine Hcl (Meclizine Hcl), 25 MG PO DAILY PRN for Dizziness or Vertigo Nitroglycerin (Nitrostat), 0.4 MG UT UD PRN for Chest Pain Oxybutynin Chloride (Oxybutynin Chloride), 5 MG PO UD PRN for Bladder pain Tramadol HCl (Tramadol HCl), 100 MG PO Q6H PRN for Pain Valacyclovir Hcl (Valtrex), 1 GM PO UD PRN for Cold Sores Current Inpatient Medications Current Inpatient Medications Medications (Trade) Dose Ordered Sig/Mila Route Start Time Stop Time Status Last Admin Dose Admin Aspirin (Ecotrin Tab) 325 mg DAILY PO 06/18/17 09:00 07/18/17 08:59 06/18/17 08:21 325 MG Diltiazem HCl (Cardizem Cd Cap) 180 mg BID PO 06/18/17 09:00 07/18/17 08:59 06/18/17 08:19 180 MG Furosemide (Lasix Tab) 20 mg DAILY PRN PO 06/17/17 20:30 07/17/17 20:29 Hydralazine HCl (Apresoline Tab) 25 mg BID@0200,1500 PO 06/18/17 02:00 07/18/17 01:59 06/18/17 02:02 25 MG Insulin Glargine (Lantus Solostar Pen) 30 units QAM SC 06/18/17 09:00 07/18/17 08:59 06/18/17 08:27 30 UNITS Albuterol/ Ipratropium (Combivent Respimat Inh) 2 puffs QID PRN INH 06/17/17 20:30 07/17/17 20:29 Labetalol HCl (Normodyne Tab) 100 mg BID PO 06/18/17 09:00 07/18/17 08:59 06/18/17 08:19 100 MG Lorazepam (Ativan Tab) 0.5 mg BID PRN PO 06/17/17 20:30 07/17/17 20:29 Meclizine HCl (Antivert Tab) 25 mg DAILY PRN PO 06/17/17 20:30 07/17/17 20:29 Nitrofurantoin Macrocrystals (Macrodantin Cap) 100 mg BID PO 06/17/17 21:00 06/22/17 20:59 06/18/17 08:20 100 MG Nitroglycerin (Nitrostat Tab) 0.4 mg UD PRN UT 06/17/17 20:30 07/17/17 20:29 Oxybutynin Chloride (Ditropan Tab) 5 mg QPM PRN PO 06/17/17 20:30 07/17/17 20:29 Pregabalin (Lyrica Cap) 150 mg BID PO 06/17/17 21:00 07/17/17 20:59 06/18/17 08:21 150 MG Senna (Senokot Tab) 17.2 mg QPM PO 06/17/17 22:00 07/17/17 21:59 06/17/17 23:29 17.2 MG Tramadol HCl (Ultram Tab) 100 mg Q6H PRN PO 06/17/17 20:30 07/17/17 20:29 06/18/17 09:35 100 MG Trazodone HCl (Desyrel Tab) 150 mg HS PO 06/17/17 21:00 07/17/17 20:59 06/17/17 23:30 150 MG Warfarin Sodium (Coumadin Tab) 4 mg Q2D@1600 PO 06/17/17 22:00 07/17/17 21:59 06/17/17 23:28 4 MG Miscellaneous Information (Order Awaiting Action) 1 ea QS N/A 06/17/17 20:30 07/17/17 20:29 Pantoprazole Sodium (Protonix Tab) 40 mg BID PO 06/17/17 21:00 07/17/17 20:59 06/18/17 08:20 40 MG Insulin Aspart (novoLOG ASPART) SLIDING SCALE G... ACHS SC 06/17/17 21:00 07/17/17 20:59 06/18/17 08:27 1 UNITS Glucose (Glucose 40% Gel) 15-30 GRAMS 15 GRAMS... UD PRN PO 06/17/17 21:00 07/17/17 20:59 Glucose (Glucose Chew Tab) 4-8 Tablets 4 Tabl... UD PRN PO 06/17/17 21:00 07/17/17 20:59 Dextrose (Dextrose 50% 50ML Syringe) 25-50ML OF 50% DW IV FOR... UD PRN IV 06/17/17 21:00 07/17/17 20:59 Glucagon (Glucagon Inj) 1 mg UD PRN SQ 06/17/17 21:00 07/17/17 20:59 Miscellaneous (Iv Fluids Completed) 1 ea PRN PRN N/A 06/17/17 21:00 06/17/18 20:59 Warfarin Sodium (Coumadin Tab) 6 mg Q2D@1600 PO 06/18/17 16:00 07/18/17 15:59 Miscellaneous Information (Nursing Verbal Med Order) 1 ea ONE ONCE N/A 06/18/17 10:45 06/18/17 10:46 UNV Linaclotide (Linzess) 72 mcg DAILY PO 06/19/17 09:00 07/19/17 08:59 UNV Review of Systems Constitutional: + weakness Physical Exam Date Time Temp Pulse Resp B/P (MAP) Pulse Ox O2 Delivery O2 Flow Rate FiO2 06/18/17 10:00 177/64 (101) 06/18/17 08:01 94 Room Air 06/18/17 07:57 36.8 90 17 172/76 (108) 94 Room Air 06/18/17 07:40 Room Air 06/17/17 23:35 Room Air 06/17/17 23:08 36.7 62 18 148/67 (94) 93 Room Air 06/17/17 21:40 36.7 62 18 157/65 93 Room Air 06/17/17 20:56 71 18 134/69 96 Room Air 06/17/17 19:15 74 18 138/74 95 Room Air 06/17/17 17:28 36.5 76 18 143/72 95 Room Air When I entered the room she was seen with one of the hospitalists PAs as well as her . Karey was standing trying to move the hospital bed. If she seemed to do this with ease. No distress. She upon examination of her lower extremities. She does have atrophy of the left calf. She has a left foot drop. Diminished sensation along the left foot. [place] weakness over the left quadricep and hamstring as well. No evidence of ankle clonus. Equivocal Babinski bilaterally. No evidence of upper motor neuron signs bilaterally. Strength is intact right lower extremity. She is a well-healed lumbar incision. Laboratory Results Last 24 Hours Test 06/17/17 18:20 06/17/17 22:23 06/18/17 07:57 06/18/17 09:18 White Blood Count 12.04 K/uL 11.74 K/uL Red Blood Count 4.97 M/uL 5.18 M/uL Hemoglobin 15.1 g/dL 16.3 g/dL Hematocrit 44.2 % 45.9 % Mean Corpuscular Volume 88.9 fL 88.6 fL Mean Corpuscular Hemoglobin 30.4 pg 31.5 pg Mean Corpuscular Hemoglobin Concent 34.2 g/dl 35.5 g/dl Platelet Count 333 K/uL 306 K/uL Mean Platelet Volume 10.0 fL 10.2 fL Neutrophils (%) (Auto) 61.4 % Lymphocytes (%) (Auto) 21.9 % Monocytes (%) (Auto) 7.2 % Eosinophils (%) (Auto) 9.1 % Basophils (%) (Auto) 0.2 % Neutrophils # (Auto) 7.38 K/uL Lymphocytes # (Auto) 2.64 K/uL Monocytes # (Auto) 0.87 K/uL Eosinophils # (Auto) 1.10 K/uL Basophils # (Auto) 0.02 K/uL RDW Standard Deviation 41.3 fL 41.0 fL RDW Coefficient of Variation 12.8 % 12.7 % Immature Granulocyte % (Auto) 0.2 % Immature Granulocyte # (Auto) 0.03 K/uL Erythrocyte Sedimentation Rate 11 mm/hr Prothrombin Time 29.4 SECONDS 24.2 SECONDS Prothromb Time International Ratio 2.6 2.2 Activated Partial Thromboplast Time 34.8 SECONDS Partial Thromboplastin Ratio 1.3 Sodium Level 141 mmol/L 139 mmol/L Potassium Level 3.5 mmol/L 3.7 mmol/L Chloride Level 105 mmol/L 106 mmol/L Carbon Dioxide Level 32 mmol/L 30 mmol/L Anion Gap 4.0 mmol/L 3.0 mmol/L Blood Urea Nitrogen 16 mg/dl 13 mg/dl Creatinine 0.70 mg/dl 0.67 mg/dl Est Creatinine Clear Calc Drug Dose 60.1 ml/min 62.8 ml/min Estimated GFR () 100.3 101.8 Estimated GFR (Non- 86.6 87.8 BUN/Creatinine Ratio 22.6 18.8 Random Glucose 238 mg/dl 286 mg/dl Calcium Level 9.1 mg/dl 9.5 mg/dl Phosphorus Level 3.1 mg/dl Magnesium Level 1.9 mg/dl Bedside Glucose 78 mg/dl 199 mg/dl Test 06/18/17 12:00 Bedside Glucose 324 mg/dl Patient Name: KAREY MENA Unit Number: [id number] Dictated: 06/15/171721 Transcribed: 06/15/171721 KIMMIE Printed Date/Time: [~ rep prt dt]/[~ rep prt tm] [~ rep ct labl] - [~ rep ct ivnm] [facility] [place] [address] Dictated: 06/15/171721 Transcribed: 06/15/171721 JA Printed Date/Time: [~ rep prt dt]/[~ rep prt tm] [~ rep ct labl] - [~ rep ct ivnm] Patient: KAREY MENA Address1: [address] Rec: [id number] Address2: Acct ID: [id number] [facility] Zip: [place] [address] Date: 1945 Sex: F Room/Bed: Ref Phy: Reuben Herring M.D. SC: SAURABH Att Phy: Report #: [id number] Rosario Phy: Reuben Herring M.D. Test: LSWOC Admit Phy: In Flight Technician: KULDEEP Interpreting Phy: Thomas Alexis MD Diagnosis: STROKE, LOWER BACK PAIN, NO BALANCE/COORDINATION Ordering Phy: Bella Foote M.D. Service Date: 06/15/17 Admit Date: 06/15/17 MNE: [id number] CONF: DICTATED BY: Thomas Alexis MD]] CC: Bella Foote M.D. McKinley, Daniel F., M.D. Murray, Michael ., M.D. Endcc: [~ rep ct add3]] MRI OF THE LUMBAR SPINE WITHOUT CONTRAST CLINICAL HISTORY: Multiple lumbar surgeries, gait imbalance, lower extremity weakness. COMPARISON STUDY: Lumbar spine MRI February 15, 2016. TECHNIQUE: Utilizing a 1.5 Jammie magnet and dedicated coil, multiplanar, multiecho imaging of the lumbar spine was performed without IV contrast. FINDINGS: For purposes of numbering on this exam, the L5-S1 disc space is assigned to axial image 23 of 25. There are findings consistent with a posterior decompression, L5-S1 discectomy and L4-S1 bilateral pedicle screw fusion. There is no fracture or suspicious marrow replacement. There is no intracanalicular mass or fluid collection. Conus terminates at the L1-L2 level. L1-2: Central canal and neural foramen are patent. L2-3: Disc bulge, ligamentous hypertrophy and facet arthrosis are present. There is mild narrowing of the central canal, lateral recesses and neural foramen. L3-4: Central canal and neural foramen are patent. The synovial cyst shown on exam of February 15, 2016 is no longer visualized. L4-5: Central canal and neural foramen are patent. L5-S1: There is a disc bulge with small central disc protrusion. This is unchanged. The left neural foramen is patent. There is mild to moderate narrowing of the right neural foramen which is unchanged since MRI of February 15, 2016. IMPRESSION: 1. Status post L5-S1 discectomy and L4-S1 bilateral pedicle screw fusion with decompression. 2. No acute abnormality within the lumbar spine by MRI. 3. Mild narrowing of the central canal, lateral recesses and neural foramen at L2-L3 due to disc bulge, ligamentous hypertrophy and facet arthrosis. 4. Mild to moderate narrowing of the right neural foramen at L5-S1 which is similar to prior MRI. Electronically signed by: Thomas Alexis M.D. 06/15/2017 5:33 PM Dictated Date/Time: 06/15/2017 5:22 PM The status of this report is Signed. Draft = Not yet reviewed or approved by Radiologist. Signed = Reviewed and approved by Radiologist. <AttendingPhy></AttendingPhy> <FamilyPhy>Reuben Herring M.D.</FamilyPhy> < PrimaryPhy>Reuben Herring M.D.</PrimaryPhy> <UnitNumber>[id number]</ UnitNumber> <VisitNumber>[id number]</VisitNumber> <PatientName>KAREY MENA</PatientName> <DateOfBirth>1945</DateOfBirth> <Location>[facility]</Location > <ServiceDate>06/15/17</ServiceDate> <MNE>ESINDI</MNE> <OrderingPhy>Bella Foote M.D.</OrderingPhy> <OrderingPhyMNE>f rep ord [facility]</OrderingPhyMNE > <DictatingPhyMNE>f rep dict [facility]</DictatingPhyMNE> <CCListMNE>f rep ct brittny</ CCListMNE> <AdmittingPhyMNE>f pt admit [facility]</AdmittingPhyMNE> <AttendingPhyMNE >f pt attend [facility]</AttendingPhyMNE> <ConsultingPhyMNE>f pt consult [facility]</ConsultingPhyMNE> <FamilyPhyMNE>f pt fam [facility]</FamilyPhyMNE> <OtherPhyMNE>f pt other dr [facility]</OtherPhyMNE> < PrimaryPhyMNE>f pt prim care [facility]</PrimaryPhyMNE> <ReferringPhyMNE>f pt referring dr [facility]</ReferringPhyMNE> Assessment & Plan I have reviewed her MRI performed on 06/15/2017. She has chronic back pain as well as an established left foot drop since her last surgery and her she 2+ years ago. She has no evidence of upper motor neuron signs to suggest a cervical or thoracic cord changes or impingement. There is no acute surgical indications at this point in time in regards to her lower back. My only thought would be that some of her balance issues could be related to her left foot drop. Again she does not seem compliant with her AFO brace. She may continue her spine and follow up in [place] as needed.
[2017-06-18] MEDS ORDERED: LINACLOTIDE 72 MCG PO SCH (14:00)
[2017-06-18 14:44] VITALS: BP 161/63; PULSE 91
[2017-06-18] MEDS ORDERED: HydrALAZINE HCL 20 MG/ML VIAL IV. PRN (15:15)
--- NOTE | 2017-06-18 15:20 | Hospitalist Progress Note ---
Hospitalist Progress Note Date of Service Jun 18, 2017. Subjective Pt evaluation today including: conversation w/ patient, conversation w/ family , physical exam, chart review, lab review, review of studies, conversation w/ mortgage consultant (Orthopedics - Xaio Babb), review of inpatient medication list Patient seen and evaluated. Reports acute worsening of chronic ongoing back and lower extremity issues. Denies any trauma or precipitating events. Reports waking up a few days ago with worsening ambulatory dysfunction. She says she would try to walk but would become weak and fall mostly to the L side but does report intermittently falling towards the R side. She does have a chronic L foot drop from a decompression performed in [place] about 2 years ago and does not wear the brace consistently that was prescribed for it. She does have chronic vertigo and states that she gets this frequently and can sometimes feel like passing out and did occur with her ambulatory issues. Since admission she has not had any of these symptoms. She has been ambulating in her room, her posture is stooped and she states this is how she always is. Gait is rather steady and was even attempting to move the bed to better view the TV. Was tugging on the bed with the brake on and had good strength and remained steady while doing this. She has been on opiates as outpatient but reports this isn't working and followed with pain management in the past. Stated "they said this is degenerative and can't be fixed" also stated "the only thing left is to stay on pain medications" she does not want opiates. She is interested in nerve ablation. She was evaluated by Dr. Freedman in the past reporting nerve conduction studies stating "I basically have no muscle ability" Repeating chronic back pain with sciatic distribution, weakness in lower extremities (improved), and stiffness. Has chronic stress incontinence but no loss of bowel function or saddle paresthesias. Patient did get somewhat tearful when discussing treatments and chronic issues as she just wants to find something that will help. Constitutional: No fever, No chills Respiratory: No shortness of breath Cardiovascular: No chest pain Abdomen: No pain, No nausea, No vomiting, No diarrhea, No constipation Female : + incontinence (chronic - stress), No dysuria Neurologic: + weakness (bilateral lower extremity weakness), + numbness/ tingling, + balance problems (improving but chronic in nature) Heme: No abnormal bleeding/bruising Medications Current Inpatient Medications Medications (Trade) Dose Ordered Sig/Mila Route Start Time Stop Time Status Last Admin Dose Admin Aspirin (Ecotrin Tab) 325 mg DAILY PO 06/18/17 09:00 07/18/17 08:59 06/18/17 08:21 325 MG Diltiazem HCl (Cardizem Cd Cap) 180 mg BID PO 06/18/17 09:00 07/18/17 08:59 06/18/17 08:19 180 MG Furosemide (Lasix Tab) 20 mg DAILY PRN PO 06/17/17 20:30 07/17/17 20:29 Hydralazine HCl (Apresoline Tab) 25 mg BID@0200,1500 PO 06/18/17 02:00 07/18/17 01:59 06/18/17 02:02 25 MG Insulin Glargine (Lantus Solostar Pen) 30 units QAM SC 06/18/17 09:00 07/18/17 08:59 06/18/17 08:27 30 UNITS Albuterol/ Ipratropium (Combivent Respimat Inh) 2 puffs QID PRN INH 06/17/17 20:30 07/17/17 20:29 Labetalol HCl (Normodyne Tab) 100 mg BID PO 06/18/17 09:00 07/18/17 08:59 06/18/17 08:19 100 MG Lorazepam (Ativan Tab) 0.5 mg BID PRN PO 06/17/17 20:30 07/17/17 20:29 Meclizine HCl (Antivert Tab) 25 mg DAILY PRN PO 06/17/17 20:30 07/17/17 20:29 Nitrofurantoin Macrocrystals (Macrodantin Cap) 100 mg BID PO 06/17/17 21:00 06/22/17 20:59 06/18/17 08:20 100 MG Nitroglycerin (Nitrostat Tab) 0.4 mg UD PRN UT 06/17/17 20:30 07/17/17 20:29 Oxybutynin Chloride (Ditropan Tab) 5 mg QPM PRN PO 06/17/17 20:30 07/17/17 20:29 Pregabalin (Lyrica Cap) 150 mg BID PO 06/17/17 21:00 07/17/17 20:59 06/18/17 08:21 150 MG Senna (Senokot Tab) 17.2 mg QPM PO 06/17/17 22:00 07/17/17 21:59 06/17/17 23:29 17.2 MG Tramadol HCl (Ultram Tab) 100 mg Q6H PRN PO 06/17/17 20:30 07/17/17 20:29 06/18/17 09:35 100 MG Trazodone HCl (Desyrel Tab) 150 mg HS PO 06/17/17 21:00 07/17/17 20:59 06/17/17 23:30 150 MG Warfarin Sodium (Coumadin Tab) 4 mg Q2D@1600 PO 06/17/17 22:00 07/17/17 21:59 06/17/17 23:28 4 MG Miscellaneous Information (Order Awaiting Action) 1 ea QS N/A 06/17/17 20:30 07/17/17 20:29 Pantoprazole Sodium (Protonix Tab) 40 mg BID PO 06/17/17 21:00 07/17/17 20:59 06/18/17 08:20 40 MG Insulin Aspart (novoLOG ASPART) SLIDING SCALE G... ACHS SC 06/17/17 21:00 07/17/17 20:59 06/18/17 12:54 5 UNITS Glucose (Glucose 40% Gel) 15-30 GRAMS 15 GRAMS... UD PRN PO 06/17/17 21:00 07/17/17 20:59 Glucose (Glucose Chew Tab) 4-8 Tablets 4 Tabl... UD PRN PO 06/17/17 21:00 07/17/17 20:59 Dextrose (Dextrose 50% 50ML Syringe) 25-50ML OF 50% DW IV FOR... UD PRN IV 06/17/17 21:00 07/17/17 20:59 Glucagon (Glucagon Inj) 1 mg UD PRN SQ 06/17/17 21:00 07/17/17 20:59 Miscellaneous (Iv Fluids Completed) 1 ea PRN PRN N/A 06/17/17 21:00 06/17/18 20:59 Warfarin Sodium (Coumadin Tab) 6 mg Q2D@1600 PO 8/1/17 16:00 07/18/17 15:59 Linaclotide (Linzess) 72 mcg DAILY PO 06/18/17 14:00 07/18/17 13:59 06/18/17 13:59 72 MCG Objective Vital Signs Date Time Temp Pulse Resp B/P (MAP) Pulse Ox O2 Delivery O2 Flow Rate FiO2 06/18/17 14:44 91 161/63 (95) 06/18/17 10:00 177/64 (101) 06/18/17 08:01 94 Room Air 06/18/17 07:57 36.8 90 17 172/76 (108) 94 Room Air 06/18/17 07:40 Room Air 06/17/17 23:35 Room Air 06/17/17 23:08 36.7 62 18 148/67 (94) 93 Room Air 06/17/17 21:40 36.7 62 18 157/65 93 Room Air 06/17/17 20:56 71 18 134/69 96 Room Air 06/17/17 19:15 74 18 138/74 95 Room Air 06/17/17 17:28 36.5 76 18 143/72 95 Room Air Physical Exam General Appearance: no apparent distress (minimal tearful), + thin, + pertinent finding (chronically ill-appearing) Eyes: sclerae normal ENT: hearing grossly normal Neck: supple, no JVD, trachea midline Respiratory/Chest: lungs clear, no respiratory distress, no accessory muscle use, + decreased breath sounds (poor airflow diffusely) Cardiovascular: regular rate, rhythm, no gallop, no murmur Abdomen: normal bowel sounds, non tender, soft Extremities: no pedal edema, no calf tenderness Neurologic/Psychiatric: alert, oriented x 3, + pertinent finding (gait steady; stooped posture) Skin: normal color, warm/dry Laboratory Results Last 24 Hours Test 06/17/17 18:20 06/17/17 22:23 06/18/17 07:57 06/18/17 09:18 White Blood Count 12.04 K/uL 11.74 K/uL Red Blood Count 4.97 M/uL 5.18 M/uL Hemoglobin 15.1 g/dL 16.3 g/dL Hematocrit 44.2 % 45.9 % Mean Corpuscular Volume 88.9 fL 88.6 fL Mean Corpuscular Hemoglobin 30.4 pg 31.5 pg Mean Corpuscular Hemoglobin Concent 34.2 g/dl 35.5 g/dl Platelet Count 333 K/uL 306 K/uL Mean Platelet Volume 10.0 fL 10.2 fL Neutrophils (%) (Auto) 61.4 % Lymphocytes (%) (Auto) 21.9 % Monocytes (%) (Auto) 7.2 % Eosinophils (%) (Auto) 9.1 % Basophils (%) (Auto) 0.2 % Neutrophils # (Auto) 7.38 K/uL Lymphocytes # (Auto) 2.64 K/uL Monocytes # (Auto) 0.87 K/uL Eosinophils # (Auto) 1.10 K/uL Basophils # (Auto) 0.02 K/uL RDW Standard Deviation 41.3 fL 41.0 fL RDW Coefficient of Variation 12.8 % 12.7 % Immature Granulocyte % (Auto) 0.2 % Immature Granulocyte # (Auto) 0.03 K/uL Erythrocyte Sedimentation Rate 11 mm/hr Prothrombin Time 29.4 SECONDS 24.2 SECONDS Prothromb Time International Ratio 2.6 2.2 Activated Partial Thromboplast Time 34.8 SECONDS Partial Thromboplastin Ratio 1.3 Sodium Level 141 mmol/L 139 mmol/L Potassium Level 3.5 mmol/L 3.7 mmol/L Chloride Level 105 mmol/L 106 mmol/L Carbon Dioxide Level 32 mmol/L 30 mmol/L Anion Gap 4.0 mmol/L 3.0 mmol/L Blood Urea Nitrogen 16 mg/dl 13 mg/dl Creatinine 0.70 mg/dl 0.67 mg/dl Est Creatinine Clear Calc Drug Dose 60.1 ml/min 62.8 ml/min Estimated GFR () 100.3 101.8 Estimated GFR (Non- 86.6 87.8 BUN/Creatinine Ratio 22.6 18.8 Random Glucose 238 mg/dl 286 mg/dl Calcium Level 9.1 mg/dl 9.5 mg/dl Phosphorus Level 3.1 mg/dl Magnesium Level 1.9 mg/dl Bedside Glucose 78 mg/dl 199 mg/dl Test 06/18/17 12:00 Bedside Glucose 324 mg/dl Assessment and Plan This is a 71-year-old female with a medical history of diabetes, lumbar stenosis , CVA/TIA, hypertension, hyperlipidemia, chronic back pain. She presents with 3 days of progressive gait dysfunction, where she loses her balance and feels weak in her lower extremities on any attempt to ambulate. Ambulatory Dysfunction on Chronic Lumbar Stenosis/Chronic Back Pain: - Awaiting MRI Brain - unlikely this is cerebral in nature - will await results - Tramadol 100 mg Q6H PRN - Ortho consulted - discussed with Xiao Babb - no acute changes or deficits requiring surgical intervention - Will consult Pain Management and Neurology - appreciate recommendations in pain control and lower extremity weakness Infection? Recent UTI per Outpatient Records: - Per outpatient records patient was seen in [facility] for gross hematuria but culture with 1000 colonies mixed maricarmen - had unremarkable bladder U/S - was placed on Macrobid x 10 days - unsure of when this was possibly May 31? - Obtain U/A - does have a mild leukocytosis which may be reactive instead of infection but will R/O in setting of acute changes in weakness - may be altered due to antibiotics - Lung diminished but do not suspect pneumonia - Reviewed echo from Nov 2015 - EF 65-70%; mild LVH; no wall motion abnormality HTN: - Diltiazem 180 mg BID, Hydralazine 25 mg BID, and Labetalol 100 mg BID - Lasix 20 mg daily PRN H/O DVT and CVAs: - INR therapeutic and continue to monitor - continue Coumadin - ASA 325 mg daily COPD without Exacerbation: - Combivent 2 puffs QID PRN Insulin Dependent Diabetes Mellitus: - Lantus 30 units SC daily and SSI with carb coverage Chronic Constipation: - Linzess 72 mcg daily and Senna daily DVT Prophylaxis: Coumadin Code Status: FULL RESUSCITATION Disposition: PT/OT evaluations Continued [facility] stay due to: ambulation difficulties Discharge planning: uncertain
--- NOTE | 2017-06-18 15:54 | DIAGNOSTIC IMAGING REPORT ---
MRI OF THE BRAIN COMBO CLINICAL HISTORY: Ataxia. COMPARISON STUDY: CT of the brain dated 06/15/2017. MRI of the brain dated 07/30/2016 TECHNIQUE: MRI of the brain was performed utilizing various T1 and T2-weighted sequences in the axial, sagittal, and coronal planes. Contrast-enhanced sequences were acquired following the administration of 5.5 cc of Gadavist. The examination is modestly degraded by motion artifact. FINDINGS: Brain parenchyma: There are age-related involutional changes noting moderate to advanced confluent subcortical and periventricular microangiopathic disease right frontal encephalomalacia is unchanged and consistent with a remote infarct. There is no hemorrhage or mass effect. There is no restricted diffusion to suggest acute ischemia. No enhancing mass lesion is identified on the postcontrast images. Santoro-white matter differentiation is preserved. No extra-axial fluid collection is seen. The cerebellar tonsils are normal in configuration. Ventricles, sulci, and cisterns: Prominent secondary to involutional change. Pituitary and sella: Unremarkable. Intracranial vasculature: Again seen is loss of the left internal carotid artery flow void at the skull base. The remaining flow voids are maintained. Orbits: The bony orbits are grossly intact. Orbital contents are normal in appearance. Sinuses and mastoids: Clear. Calvarium: Unremarkable. Cervical cord: Partially visualized cervical spinal cord is normal in morphology and signal intensity. IMPRESSION: 1. There is no hemorrhage, enhancing mass, or evidence of acute ischemia. 2. There is loss of the left internal carotid artery flow void at the skull base, similar to prior studies. 3. Senescent changes and remote infarct as above. Electronically signed by: Nba Benítez M.D. 06/18/2017 3:53 PM Dictated Date/Time: 06/18/2017 3:48 PM
[2017-06-18] MEDS ORDERED: GADAVIST IV PRN (16:00)
[2017-06-18] MEDS ORDERED: WARFARIN SOD 6 MG TAB PO SCH (16:00)
[2017-06-18 16:01] VITALS: BP 173/94; PULSE 76
[2017-06-18] MEDS ORDERED: LINACLOTIDE PO (17:49)
[2017-06-18] MEDS ORDERED: CYM/30 PO (17:49)
--- NOTE | 2017-06-18 17:55 | Discharge Instructions ---
Discharge Instructions Date of Service Jun 18, 2017. Admission Reason for Admission: Gait Difficulty Discharge Discharge Diagnosis / Problem: Ambulatory dysfunction Discharge Goals Goal(s): Improve disease control, Diagnostic testing, Therapeutic intervention Activity Recommendations Activity Limitations: resume your previous activity Exercise/Sports Limitations: gradually increase as tolerated . Instructions / Follow-Up Instructions / Follow-Up You were admitted with difficulty with walking. Your brain MRI did not show a new stroke. You were seen by Orthopedics who reviewed your recent Lumbar spine MRI and did not think there was anything surgical that needed to be done. You were started on a new medication called Seth to see if that helps with your pain. Please follow up with your PCP within 1-2 weeks - we will contact you tomorrow with the appointment time. We will also help make you an appointment with Dr. Freedman of Neurology to see if your gait problem is related to a Neurological disorder. Current Hospital Diet Patient's current hospital diet: AHA Diet (Heart Healthy), Diabetes Type 2 Diet Discharge Diet Recommended Diet: AHA Diet (Heart Healthy), Diabetes Type 2 Diet Pending Studies Studies pending at discharge: no Medical Emergencies . Who to Call and When: Medical Emergencies: If at any time you feel your situation is an emergency, please call 911 immediately. . Non-Emergent Contact Non-Emergency issues call your: Primary Care Provider Call Non-Emergent contact if: your pain is not controlled, your pain is worsening, your pain is unusual for you, your pain is concerning you, you have any medication questions . . "Provider Documentation" section prepared by Mary Cloud. . VTE Core Measure Inpt VTE Proph given/why not?: Treatment not indicated
[2017-06-18 18:19] VITALS: BP 173/94; PULSE 76; TEMP 36.8; O2SAT 94
--- NOTE | 2017-06-18 19:06 | Discharge Summary ---
Discharge Summary Date of Service Jun 18, 2017. (Comfort Diaz PA-C) Discharge Summary Admission Date: Jun 17, 2017 at 20:28 Discharge Date: Jun 18, 2017 Discharge Disposition: Home Principal Diagnosis: Ambulatory Dysfunction Problems/Secondary Diagnoses: 1. Insulin-dependent diabetes. 2. Osteoarthritis. 3. COPD. 4. GERD. 5. Anxiety. 6. Hyperlipidemia. 7. Hypertension. 8. History of CVA and TIA. 9. CAD with possible history of an MT. 10. Multiple DVTs Immunizations: Have You Had Influenza Vaccine: Yes Influenza Vaccine Date: Aug 18, 2012 History of Tetanus Vaccine?: UNSURE OF DATE History of Pneumococcal: unsure of date Pneumococcal Date: April 01, 2003 History of Hepatitis B Vaccine: No Procedures: MRI OF THE BRAIN COMBO FINDINGS: Brain parenchyma: There are age-related involutional changes noting moderate to advanced confluent subcortical and periventricular microangiopathic disease right frontal encephalomalacia is unchanged and consistent with a remote infarct. There is no hemorrhage or mass effect. There is no restricted diffusion to suggest acute ischemia. No enhancing mass lesion is identified on the postcontrast images. Santoro-white matter differentiation is preserved. No extra-axial fluid collection is seen. The cerebellar tonsils are normal in configuration. Ventricles, sulci, and cisterns: Prominent secondary to involutional change. Pituitary and sella: Unremarkable. Intracranial vasculature: Again seen is loss of the left internal carotid artery flow void at the skull base. The remaining flow voids are maintained. Orbits: The bony orbits are grossly intact. Orbital contents are normal in appearance. Sinuses and mastoids: Clear. Calvarium: Unremarkable. Cervical cord: Partially visualized cervical spinal cord is normal in morphology and signal intensity. IMPRESSION: 1. There is no hemorrhage, enhancing mass, or evidence of acute ischemia. 2. There is loss of the left internal carotid artery flow void at the skull base, similar to prior studies. 3. Senescent changes and remote infarct as above. MRI OF THE LUMBAR SPINE WITHOUT CONTRAST FINDINGS: For purposes of numbering on this exam, the L5-S1 disc space is assigned to axial image 23 of 25. There are findings consistent with a posterior decompression, L5-S1 discectomy and L4-S1 bilateral pedicle screw fusion. There is no fracture or suspicious marrow replacement. There is no intracanalicular mass or fluid collection. Conus terminates at the L1-L2 level. L1-2: Central canal and neural foramen are patent. L2-3: Disc bulge, ligamentous hypertrophy and facet arthrosis are present. There is mild narrowing of the central canal, lateral recesses and neural foramen. L3-4: Central canal and neural foramen are patent. The synovial cyst shown on exam of February 15, 2016 is no longer visualized. L4-5: Central canal and neural foramen are patent. L5-S1: There is a disc bulge with small central disc protrusion. This is unchanged. The left neural foramen is patent. There is mild to moderate narrowing of the right neural foramen which is unchanged since MRI of February 15, 2016. IMPRESSION: 1. Status post L5-S1 discectomy and L4-S1 bilateral pedicle screw fusion with decompression. 2. No acute abnormality within the lumbar spine by MRI. 3. Mild narrowing of the central canal, lateral recesses and neural foramen at L2-L3 due to disc bulge, ligamentous hypertrophy and facet arthrosis. 4. Mild to moderate narrowing of the right neural foramen at L5-S1 which is similar to prior MRI. Consultations: 1. Orthopedic Surgery (Comfort Diaz, ALC) Medication Reconciliation New Medications: Duloxetine Hcl (Cymbalta) 30 Mg Cap 30 MG PO DAILY for 30 Days, #30 CAP [Linaclotide] () 72 MCG CAP 72 MCG PO DAILY for 30 Days Continued Medications: Aspirin (Aspirin) 325 Mg Tab 325 MG PO DAILY Cyclosporine (Ophth) (Restasis) 0.05 % Emu 1 DROP OP BID PRN for DRYNESS, BTL Diltiazem Hcl Coated Beads (Cartia Xt) 180 Mg Cap 180 MG PO BID Diphenoxylate/Atropine (Lomotil 2.5-0.025 mg) 1 Ea Tab 2 TABS PO QID PRN for Diarrhea Furosemide (Lasix) 20 Mg Tab 20 MG PO DAILY PRN for Fluid Accumulation Glipizide (Glipizide ER) 10 Mg Tabcr 20 MG PO QAM Hydralazine Hcl (Apresoline) 25 Mg Tab 25 MG PO UD TAKE ONE TABLET AROUND 0200 HOURS AND 1500 HOURS Insulin Glargine (Lantus Solostar) 100 Unit/Ml Inj 30 UNITS SC QAM Ipratropium-Albuterol (Combivent Respimat) 1 Aer Aer 1 PUFF INH QID PRN for Shortness of Breath, INH Labetalol HCl (Labetalol HCl) 100 Mg Tab 100 MG PO BID Lorazepam (Lorazepam) 0.5 Mg Tab 0.5 MG PO BID PRN for Anxiety Meclizine Hcl (Meclizine Hcl) 25 Mg Tab 25 MG PO DAILY PRN for Dizziness or Vertigo Nitroglycerin (Nitrostat) 0.4 Mg Tab 0.4 MG UT UD PRN for Chest Pain Omeprazole (Prilosec) 20 Mg Cap 20 MG PO BID Oxybutynin Chloride (Oxybutynin Chloride) 5 Mg Tab 5 MG PO UD PRN for Bladder pain TAKE MD DIRECTS Pregabalin (Lyrica) 150 Mg Cap 150 MG PO BID Senna (Senokot) 8.6 Mg Tab 43 MG PO QPM TAKE 5 TABLETS DAILY Tramadol HCl (Tramadol HCl) 50 Mg Tab 100 MG PO Q6H PRN for Pain Trazodone Hcl (Trazodone) 100 Mg Tab 150 MG PO HS Valacyclovir Hcl (Valtrex) 1 Gm Tab 1 GM PO UD PRN for Cold Sores, #4 TAKE ONE TABLET EVERY 12 HOURS NEEDED FOR COLD SORE OUTBREAKS Warfarin Sod (Jantoven) 4 Mg Tab 4 MG PO Q2D TAKE 4 MG EVERY OTHER DAY OR OTHERWISE DIRECTED TO TAKE BY ANTICOAGULATION CLINIC/MD Warfarin Sod (Jantoven) 4 Mg Tab 6 MG PO Q2D TAKE 6 MG EVERY OTHER DAY OR OTHERWISE DIRECTED TO TAKE BY ANTICOAGULATION CLINIC/MD Discontinued Medications: Nitrofurantoin Macrocrystals (Macrodantin) 100 Mg Cap 100 MG PO BID, CAP Discharge Exam REVIEW OF SYSTEMS Constitutional: No fever, No chills Respiratory: No shortness of breath Cardiovascular: No chest pain Abdomen: No pain, No nausea, No vomiting, No diarrhea, No constipation Female : + incontinence (chronic - stress), No dysuria Neurologic: + weakness (bilateral lower extremity weakness), + numbness/ tingling, + balance problems (improving but chronic in nature) Heme: No abnormal bleeding/bruising PHYSICAL EXAMINATION: General Appearance: no apparent distress (minimal tearful), + thin, + pertinent finding (chronically ill-appearing) Eyes: sclerae normal ENT: hearing grossly normal Neck: supple, no JVD, trachea midline Respiratory/Chest: lungs clear, no respiratory distress, no accessory muscle use, + decreased breath sounds (poor airflow diffusely) Cardiovascular: regular rate, rhythm, no gallop, no murmur Abdomen: normal bowel sounds, non tender, soft Extremities: no pedal edema, no calf tenderness Neurologic/Psychiatric: alert, oriented x 3, + pertinent finding (gait steady; stooped posture) Skin: normal color, warm/dry (Comfort Diaz, NAUN) Hospital Course ADMISSION: This is a 71-year-old female with a history of lumbar degenerative disease, previous lumbar surgery, COPD, chronic back pain, previous CVA, hypertension. The patient presented 3 days ago with complaints of difficulty ambulating and lower back pain. She is only able to take a couple of steps at a time without assistance and has a tendency to fall, either left or right. She describes chronic lower back pain, which has been slightly worse over the last 3 days. She had a lumbar MRI while in the Emergency Department 3 days prior, which did not show any acute changes. She was due to be admitted for an MRI of the brain and an evaluation by her orthopedist; however, she decided to sign out against medical advice. She returns 3 days later with identical complaints, stating that she would like to be admitted to the hospital. She denies any fevers, rigors, nausea, vomiting, diaphoresis, headaches or visual disturbances. The patient is well known to the medical service from multiple visits to the Emergency Department and multiple admissions. She does have a tendency to sign herself out against medical advice. HOSPITAL COURSE: Ms. Pearson was admitted for acute ambulatory dysfunction superimposed on chronic back pain and neuropathy. She does have an associated chronic L foot drop that may explain the tendency to lean to the L when ambulating in moments of weakness but did report intermittent episodes that seemed to go towards the R side. She did report that the report weakness causing falling to the L side subsided while in the hospital. She also report stable chronic vertigo that was present during these episode. Has associated incontinence but related to stress incontinence and no bowel/bladder incontinence from a neurological/cauda equina differential. She does express frustration and is tearful for not having a direct fix for her chronic back issues. She reports seeing neurology and having muscle studies completed. She has also been to pain management but expresses she does not want narcotics. She was interested in possible nerve ablation. Orthopedics evaluated her and MRI reviewed but did not suggest acute findings to warrant surgical intervention. Brain MRI without acute findings but stable findings of old infarct and stenosis of ICA. Upon examination, patient is ambulating in the room. Gait is steady and posture is hunched forward but strength appeared overall well considering. Initial plan was to have pain management and neurology evaluate patient but she requested to return home. Given the chronic nature of her conditions and lack of acute findings it would be reasonable for her to be discharge home. Did discuss initiating Cymbalta to help with neuropathic pain and patient in agreement. Patient is hemodynamically stable and safe from an ambulatory basis to be discharged home with outpatient follow-up. Total Time Spent: Greater than 30 minutes This includes examination of the patient, discharge planning, medication reconciliation, and communication with other providers. (Comfort Diaz, NAUN) Discharge Instructions Please refer to the electronic Patient Visit Report (Discharge Instructions) for additional information. (Comfort Diaz PA-C) Additional Copies To Reuben Herring M.D. Reviewed: Pt Seen/Exam by Me (Mary Cloud MD) History Physician Senior Sales Consultant Supervision Note: I interviewed and examined the patient. Discussed with CHEL Diaz and agree with findings and plan as documented in the note. Any exceptions or clarifications are listed here: Pt seen briskly walking down the hallway with her walker and into her room. States she feels much better, no more sensation like she is off balance or falling to the left, and wants to go home. Frustrated that it seems nothing can be done for her chronic pain. I reviewed with her the MRI brain findings, nothing acute. She has not seen Dr. Freedman/Neuro in about 2 years and is willing to go as an outpatient. General Appearance: no apparent distress (minimal tearful), + thin, + pertinent finding (chronically ill-appearing) Eyes: sclerae normal ENT: hearing grossly normal Neck: supple, no JVD, trachea midline Respiratory/Chest: lungs clear, no respiratory distress, no accessory muscle use, + decreased breath sounds (poor airflow diffusely) Cardiovascular: regular rate, rhythm, no gallop, no murmur Abdomen: normal bowel sounds, non tender, soft Extremities: no pedal edema, no calf tenderness Neurologic/Psychiatric: alert, oriented x 3, + pertinent finding (gait steady, no ataxia; stooped posture) Skin: normal color, warm/dry 71 yo female with h/o CVA, smoking, chronic neck and lower back pain and left foot drop, peripheral neuropathy, here with acute gait dysfunction. Suspect multifactorial cause with neuropathy, radiculopathy, previous CVA contributing. Symptoms resolved now. Suggest starting Cymbalta for neuropathic pain and suspect Fibromyalgia as well. F/u with PCP within 1 week. F/u with Neurology within 1 month as well. Ok for dc to home Documented By: Mary Cloud (Mary Cloud MD)
[2017-06-19] MEDS ORDERED: CYM/30 PO (07:10)
[2017-07-29] MEDS ORDERED: OXYC1TAB3 PO (13:26)
[2017-08-04] MEDS ORDERED: PREG1CAP70 PO (12:09)
[2017-08-04] MEDS ORDERED: IPRA1AER2 INH (14:46)
[2017-08-04] MEDS ORDERED: DTR5 PO (15:32)
[2017-08-04] MEDS ORDERED: VALA1TAB31 PO (15:32)
[2017-08-04] MEDS ORDERED: OMEP20CA9 PO (15:32)
[2017-08-04] MEDS ORDERED: TRAZ100T29 PO (15:39)
[2017-08-22] MEDS ORDERED: PREG1CAP34 PO (11:16)
[2017-08-22] MEDS ORDERED: INSDGI SC (11:16)
[2017-08-22] MEDS ORDERED: LINA1CAP PO (11:16)
[2017-08-22] MEDS ORDERED: DILT120C99 PO (11:16)
[2017-08-26] MEDS ORDERED: EZET10TA63 PO (11:24)
[2017-08-26] MEDS ORDERED: DULO60CA44 PO (11:24)
[2017-08-26] MEDS ORDERED: WARF4TAB8 PO (11:24)
[2017-08-26] MEDS ORDERED: IPRA1AER2 INH (11:24)
[2017-08-26] MEDS ORDERED: PREG1CAP70 PO (11:24)
[2017-08-26] MEDS ORDERED: DILT-113 PO (11:24)
[2017-08-26] MEDS ORDERED: SENN-61 PO (11:24)
[2017-08-26] MEDS ORDERED: LBT/100 PO (11:24)
[2017-08-26] MEDS ORDERED: LEVA45AE INH (11:24)
[2017-08-26] MEDS ORDERED: LINA72CA PO (11:24)
[2017-08-26] MEDS ORDERED: CYCL0.052 OPB (11:24)
[2017-08-26] MEDS ORDERED: MECL1TAB42 PO (11:24)
[2017-08-26] MEDS ORDERED: TRAZ100T29 PO (11:24)
== END 2017-06-18 19:15 | disposition home or self-care (01) ==
LOC: C.EDB 17:17 → C.MSN 20:28 → ENRESERV 20:45
PROVIDERS: ADMIT Internal Medicine; ATTEND Internal Medicine
DX: R26.9 Unspecified abnormalities of gait and mobility (principal); E11.42 Type 2 diabetes mellitus with diabetic polyneuropathy; J44.9 Chronic obstructive pulmonary disease, unspecified; I25.10 Atherosclerotic heart disease of native coronary artery without angina pectoris; I25.2 Old myocardial infarction; I10 Essential (primary) hypertension; E78.5 Hyperlipidemia, unspecified; K21.9 Gastro-esophageal reflux disease without esophagitis; G89.29 Other chronic pain; M54.9 Dorsalgia, unspecified; M19.90 Unspecified osteoarthritis, unspecified site; F17.210 Nicotine dependence, cigarettes, uncomplicated; F41.9 Anxiety disorder, unspecified; Z86.73 Personal history of transient ischemic attack (TIA), and cerebral infarction without residual deficits; Z79.01 Long term (current) use of anticoagulants; Z79.82 Long term (current) use of aspirin; Z79.4 Long term (current) use of insulin; Z79.899 Other long term (current) drug therapy; Z86.718 Personal history of other venous thrombosis and embolism

== ENCOUNTER 2017-08-04 17:20 | Emergency (ER) | payer OTHER ==
[~2017-08-04 17:20] MED LIST changes: +DTR5 PO; +IPRA1AER2 INH; +LINACLOTIDE PO; -NITR1CAP32 PO; +OMEP20CA9 PO; +OXYC1TAB3 PO; +PREG1CAP70 PO; +TRAZ100T29 PO; -ULT50 PO; +VALA1TAB31 PO
[2017-08-04 17:25] VITALS: TEMP 36.9; Ht 154.9 cm
[2017-08-04] MEDS ORDERED: ONDANSETRON INJ 2 MG/ML 2 ML VIAL IV STA (18:12)
[2017-08-04] MEDS ORDERED: MoRPHine SULFATE 4 MG/ML 1 ML CARP\\VIAL IV STA (18:12)
[2017-08-04] MEDS ORDERED: SODIUM CHLORIDE 0.9% 500ML 500 ML IV STA (18:12)
[2017-08-04 18:42] LABS: BASO % 0.2 %; BASO ABS # 0.02 K/uL (0-0.2); COMPLETE YES; EOS % 1.3 %; HEMATOCRIT 41.1 % (37-47); IG% 0.1 %; LYMPH % 24.7 %; LYMPH ABS # 2.32 K/uL (1.2-3.4); MEAN CORPUSCULAR HEMOGLOBIN 32.3 pg (25-34); MEAN CORPUSCULAR HGB CONC 36.3 g/dl (32-36); MEAN PLATELET VOLUME 10.1 fL (7.4-10.4); MONO % 6.9 %; NEUT % 66.8 %; PLATELET COUNT 257 K/uL (130-400); RED BLOOD COUNT 4.62 M/uL (4.2-5.4); WHITE BLOOD COUNT 9.41 K/uL (4.8-10.8)
[2017-08-04 18:54] LABS: URINE APPEARANCE CLEAR (CLEAR); URINE BILIRUBIN NEG (NEG); URINE COLOR YELLOW; URINE NITRITE NEG (NEG); URINE PH 8.5 (4.5-7.5); URINE SPECIFIC GRAVITY 1.009 (1.000-1.030); UROBILINOGEN NEG (NEG); ZZUR CULT IF INDIC CLEAN CATCH NO
[2017-08-04 18:56] LABS: MANUAL MICROSCOPIC REQUIRED? NO; REVIEW REQ? NO
[2017-08-04 19:12] LABS: ALKALINE PHOSPHATASE 90 U/L (45-117); ALT/SGPT 44 U/L (12-78); AST/SGOT 15 U/L (15-37); BLOOD UREA NITROGEN 14 mg/dl (7-18); BUN/CREATININE RATIO 25.5 (10-20); CALCIUM 9.2 mg/dl (8.5-10.1); CARBON DIOXIDE 31 mmol/L (21-32); CHLORIDE 103 mmol/L (98-107); CREATININE 0.55 mg/dl (0.60-1.20); GLUCOSE 105 mg/dl (70-99); POTASSIUM 3.7 mmol/L (3.5-5.1); SODIUM 140 mmol/L (136-145)
[2017-08-04] MEDS ORDERED: OXYC-164 PO (19:16)
[2017-08-04] MEDS ORDERED: CYM60 PO (19:16)
[2017-08-04] MEDS ORDERED: GLIP1TAB85 PO (19:16)
[2017-08-04] MEDS ORDERED: LPT40 PO (19:16)
[2017-08-04] MEDS ORDERED: LINA72CA PO (19:16)
[2017-08-04] MEDS ORDERED: DOXE10CA PO (19:16)
[2017-08-04] MEDS ORDERED: NVLGI/PEN SQ (19:16)
[2017-08-04] MEDS ORDERED: METF500T5 PO (19:41)
[2017-08-04] MEDS ORDERED: LEVA45AE INH (19:41)
[2017-08-04] MEDS ORDERED: CYCL0.052 OP (19:41)
[2017-08-04] MEDS ORDERED: CYAN10005 PO (19:41)
[2017-08-04] MEDS ORDERED: FLUT0.15 NAE (19:41)
[2017-08-04] MEDS ORDERED: OPTIRAY 320 IV PRN (19:45)
--- NOTE | 2017-08-04 19:56 | DIAGNOSTIC IMAGING REPORT ---
ABD/PELVIS IV CONTRAST ONLY CLINICAL HISTORY: 71 years-old Female presenting with lower back pain and diffuse abd pain . TECHNIQUE: Multidetector CT of the abdomen and pelvis was performed after the administration of intravenous contrast. IV contrast: 116 mL of Optiray 320. A dose lowering technique was used consistent with the principles of ALARA (as low as reasonably achievable). COMPARISON: 01/06/2017. CT DOSE (mGy.cm): The estimated cumulative dose is 241.[address] lumbar spine. FINDINGS: Laborer topogram: Posterior lumbar fusion hardware. Lung bases: Lung bases clear. Normal heart size. Coronary artery calcification. No pericardial or pleural effusion. Liver: Normal morphology. No liver lesion. Patent hepatic vasculature. Biliary: Prominence of intrahepatic bile ducts likely related to a reservoir effect in a postcholecystectomy state. Gallbladder surgically absent. Pancreas: Moderate parenchymal atrophy. Persistent pancreatic ductal dilatation with the pancreatic duct measuring 3 mm in the tail, unchanged. No gross evidence of a pancreatic mass. No parenchymal calcifications. Spleen: Normal. Adrenal glands: Normal. Kidneys and ureters: Nonobstructing 11 mm calculus in the interpolar region of the left kidney. Multiple hypodensities in the kidneys bilaterally likely cysts though many too small to characterize. Focal cortical irregularity in the anterior interpolar region of the right kidney may represent scarring from prior infarction, infection, or trauma. Renal vascular calcification noted. Ureters normal. Bladder: Incompletely evaluated secondary to underdistention. Pelvic organs: Uterus surgically absent. Bowel: Normal. No bowel obstruction. Peritoneal cavity: No free fluid or intraperitoneal gas. Vasculature: Ectasia of the infrarenal abdominal aorta measuring up to 2.5 cm in transverse dimension, unchanged from prior. Extensive atherosclerotic disease including the origins and courses of several of the major branch vessels. Apparent occlusion of the femoral-femoral bypass graft, as on prior exam. Lymph nodes: No enlarged lymph nodes in the abdomen or pelvis. Abdominal wall: Minimal infiltration in the midline lower abdomen may represent sites of injection. Few prominent collateral vessels in the abdominal wall including a varicosity that drains into the left superficial femoral vein. Musculoskeletal: Lumbar fusion hardware. Degenerative changes of the lumbar spine. Laminectomy defects. Please see separately dictated CT of the lumbar spine. IMPRESSION: 1. No acute intra-abdominal pathology. 2. Nonobstructing left millimeter calculus in the left kidney. No hydronephrosis. 3. Pancreatic parenchymal atrophy could suggest chronic pancreatitis, although no parenchymal calcifications are noted. Persistent diffuse pancreatic ductal dilatation, unchanged since prior exam. Allowing for the single phase examination, no evidence of an obstructing pancreatic mass. Ductal dilatation could be compatible with chronic pancreatitis. 4. Chronically occluded femoral femoral bypass graft. Electronically signed by: Tino Wang M.D. 08/04/2017 7:54 PM Dictated Date/Time: 08/04/2017 7:45 PM
[2017-08-04] MEDS ORDERED: ATV5X PO (20:01)
--- NOTE | 2017-08-04 20:02 | DIAGNOSTIC IMAGING REPORT ---
LUMBAR SPINE WITHOUT CLINICAL HISTORY: 71 years-old Female presenting with lower back pain on l. TECHNIQUE: Multidetector CT of the lumbar spine was performed without the use of intravenous contrast. IV contrast: None. A dose lowering technique was used consistent with the principles of ALARA (as low as reasonably achievable). COMPARISON: MR of the lumbar spine from 06/15/2017. CT DOSE (mGy.cm): The estimated cumulative dose is 241.71 mGy.cm. FINDINGS: Unloading Checker topogram: Unremarkable. Postsurgical changes of bilateral transpedicular screw and smiley fixation of L4-S1 with associated laminectomy defects of L5. Osseous fusion of the surgical levels evident. No hardware breakage or hardware complication is evident. Interbody spacer at L5-S1. Vertebral bodies maintain normal height. Minimal anterolisthesis of L4 on L5 with the remainder of the vertebral bodies maintaining normal alignment. Intervertebral disc height loss at L2-3 with vacuum disc phenomenon and disc bulge effacing the ventral thecal sac. This appearance is unchanged since the prior MR. No acute fracture or subluxation. No osseous neural foraminal narrowing. Paraspinal soft tissues demonstrate large nonobstructing calculus in the left kidney and extensive atherosclerotic disease. IMPRESSION: 1. No acute osseous injury of the lumbar spine. 2. Postsurgical changes of L4 S1 fusion with laminectomy defect of L5. No hardware complication. 3. Disc bulge resulting in effacement of the ventral thecal sac at L2-3, similar to prior MR from 06/15/2017. 4. No osseous neural foraminal narrowing. Electronically signed by: Tino Wang M.D. 08/04/2017 8:01 PM Dictated Date/Time: 08/04/2017 7:56 PM
[2017-08-04] MEDS ORDERED: PRED20TA PO (20:45)
[2017-08-04 20:59] VITALS: BP 144/89; PULSE 86; O2SAT 96
[2017-08-04] MEDS ORDERED: ASPI325T45 PO (23:54)
--- NOTE | 2017-08-05 00:33 | EMERGENCY ROOM VISIT NOTE ---
History Report prepared by Stacy: Shoshana Queen Under the Supervision of: Dr. Magdiel Taveras D.O. First contact with patient: 18:00 Chief Complaint: BACK PAIN Stated Complaint: BACK PAIN,BELLY PAIN History of Present Illness The patient is a 71 year old female who presents to the Emergency Room with complaints of worsening left lower back pain for the past 5 days. The patient was carrying soda up the stairs 5 days ago when she suddenly had a sharp pain that shot through her back. Since then she has been experiencing pain in her left lower back that radiates down into her left buttocks. She rates her current pain as a 9/10 in severity. She has never had pain like this before. She does have a history of numerous back surgeries. The patient denies any recent trauma or falls. She denies any personal history of cancer. Pt denies headache, fevers, chest pain, diarrhea, any recent changes to her urine or bowels, and any new numbness or weakness. The patient does reports some diffuse abdominal pain that she states has been constant for months and unchanged. No weakness or numbness in the lower extremity is. She able to move her bowels without difficulty. Able to urinate without difficulty. Source of History: patient Onset: 5 days ago Position: back (lower) Symptom Intensity: 9/10 Quality: sharp Timing: worsening Modifying Factors (Worsening): other (carrying heavy load up stairs) Associated Symptoms: + abdominal pain, No fevers, No headache, No chest pain , No diarrhea, No weakness, No numbness Note: Pt denies recent trauma or falls. Review of Systems See HPI for pertinent positives & negatives. A total of 10 systems reviewed and were otherwise negative. Past Medical & Surgical Medical Problems: (1) Asthma (2) Chronic obstructive lung disease (3) Community acquired pneumonia (4) Diabetes mellitus (5) Gait difficulty (6) GI bleed (7) Pneumonia (8) TIA (transient ischemic attack) Family History Cancer Diabetes mellitus Gallbladder disease Heart disease Hypertension Social History Smoking Status: Current Every Day Smoker Alcohol Use: occasionally Drug Use: none Marital Status: Housing Status: lives with family Occupation Status: retired Current/Historical Medications Scheduled Aspirin (Aspirin), 325 MG PO DAILY Atorvastatin (Atorvastatin Calcium), 40 MG PO DAILY Cyanocobalamin (Vitamin B-12), 1,000 MCG PO DAILY Cyclosporine (Ophth) (Restasis), 1 DROPS OP BID Doxepin Hcl (Sinequan), 10 MG PO DAILY Duloxetine HCl (Duloxetine HCl), 60 MG PO DAILY Fluticasone Propionate (Nasal) (Flonase Allergy Relief), 1 SPRAY DARRYL DAILY Glipizide Xl (Glucotrol Xl), 10 MG PO DAILY Insulin Aspart (Novolog Flexpen), SQ UD Insulin Glargine (Lantus Solostar), 36 UNITS SC HS Linaclotide (Linzess), 72 MG PO DAILY Metformin Hcl Er (Glucophage Er), 500 MG PO DAILY Omeprazole (Prilosec), 20 MG PO BID Prednisone (Prednisone), 1 TAB PO DAILY Pregabalin (Lyrica), 150 MG PO BID Senna (Senokot), 1 TAB PO QID Trazodone Hcl (Trazodone), 125 MG PO HS Scheduled PRN Diphenoxylate/Atropine (Lomotil 2.5-0.025 mg), 2 TABS PO QID PRN for Diarrhea Furosemide (Lasix), 20 MG PO DAILY PRN for Fluid Accumulation Ipratropium-Albuterol (Combivent Respimat), 1 PUFF INH QID PRN for Shortness of Breath Levalbuterol Tartrate (Levalbuterol Tartrate Hfa), 2 PUFF INH Q6 PRN for Lorazepam (Lorazepam), 0.5 MG PO BID PRN for Anxiety Nitroglycerin (Nitrostat), 0.4 MG UT UD PRN for Chest Pain Oxybutynin Chloride (Oxybutynin Chloride), 5 MG PO UD PRN for Bladder pain Oxycodone Hcl (Oxycodone Hcl), 10 MG PO TID PRN for Pain Oxycodone Immediate Rel Tab (Roxicodone Ir), 10 MG PO Q6H PRN for Pain Valacyclovir Hcl (Valtrex), 1 GM PO UD PRN for Cold Sores Allergies Coded Allergies: Calcium Carbonate (Verified Allergy, Intermediate, OYSTER SHELL-ITCHY, HIVES, 07/29/17) Nylon (Verified Allergy, Intermediate, HIVES, 07/29/17) Adhesives (Verified Allergy, Mild, RED ITCHY RASH, NYLON = ITCHY, 07/29/17) Animal Dander (Verified Allergy, Unknown, ASTHMA, 07/29/17) Calcium (Verified Allergy, Unknown, ITCHY, 07/29/17) Montelukast (Verified Allergy, Unknown, ., 07/29/17) Phenobarbital (Verified Allergy, Unknown, DOESN'T REMEMBER WHAT HAPPENED, 07/29/17) Shellfish (Verified Allergy, Unknown, HIVES, 07/29/17) Sulfa Antibiotics (Verified Allergy, Unknown, HIVES/RASH TO SULFA DRUGS, ) Amoxicillin (Verified Adverse Reaction, Mild, DIARRHEA, 08/04/17) Egg (Verified Adverse Reaction, Unknown, SORE THROAT, 07/29/17) Levofloxacin (Verified Adverse Reaction, Unknown, TOOK BREATH AWAY, ) INFO FROM [facility] Uncoded Allergies: METAL (Adverse Reaction, Intermediate, itchy raw skin burning, 10/29/16) Physical Exam Vital Signs Date Time Temp Pulse Resp B/P (MAP) Pulse Ox O2 Delivery O2 Flow Rate FiO2 08/04/17 20:59 86 18 144/89 96 08/04/17 19:52 80 18 154/87 95 Room Air 08/04/17 17:25 36.9 77 20 157/67 94 Room Air Physical Exam GENERAL: alert, sitting up in bed, disheveled, chronically ill appearing, well nourished, no distress, non-toxic EYE EXAM: normal conjunctiva OROPHARYNX: no exudate, no erythema, lips, buccal mucosa, and tongue normal and mucous membranes are moist NECK: supple, no nuchal rigidity, no adenopathy, non-tender LUNGS: Clear to auscultation. Normal chest wall mechanics HEART: no murmurs, S1 normal and S2 normal ABDOMEN: abdomen soft, non-tender, normo-active bowel sounds, no masses, no rebound or guarding. BACK: Back is symmetrical on inspection and there is no deformity. Old lower lumbar midline incision is clean, dry, and intact. Tenderness in left perispinal region tracking through left gluteus. SKIN: no rashes and no bruising UPPER EXTREMITIES: upper extremities are grossly normal. LOWER EXTREMITIES: No pitting edema. Flexion/extension of hip and knees bilaterally 5/5. Patellar reflexes 2 out of 4 bilateral NEURO EXAM: Normal sensorium, cranial nerves II-XII grossly intact, normal speech, no gross weakness of arms. Patellar reflexes intact. No plantar/ dorsiflexion/EHL on the left, which is old per patient, intact on the right. Medical Decision & Procedures ER Provider Diagnostic Interpretation: Radiology results as stated below per my review and the radiologist's interpretation: LUMBAR SPINE WITHOUT CLINICAL HISTORY: 71 years-old Female presenting with lower back pain on l. TECHNIQUE: Multidetector CT of the lumbar spine was performed without the use of intravenous contrast. IV contrast: None. A dose lowering technique was used consistent with the principles of ALARA (as low as reasonably achievable). COMPARISON: MR of the lumbar spine from 06/15/2017. CT DOSE (mGy.cm): The estimated cumulative dose is 241.71 mGy.cm. FINDINGS: Political Advisor topogram: Unremarkable. Postsurgical changes of bilateral transpedicular screw and smiley fixation of L4-S1 with associated laminectomy defects of L5. Osseous fusion of the surgical levels evident. No hardware breakage or hardware complication is evident. Interbody spacer at L5-S1. Vertebral bodies maintain normal height. Minimal anterolisthesis of L4 on L5 with the remainder of the vertebral bodies maintaining normal alignment. Intervertebral disc height loss at L2-3 with vacuum disc phenomenon and disc bulge effacing the ventral thecal sac. This appearance is unchanged since the prior MR. No acute fracture or subluxation. No osseous neural foraminal narrowing. Paraspinal soft tissues demonstrate large nonobstructing calculus in the left kidney and extensive atherosclerotic disease. IMPRESSION: 1. No acute osseous injury of the lumbar spine. 2. Postsurgical changes of L4 S1 fusion with laminectomy defect of L5. No hardware complication. 3. Disc bulge resulting in effacement of the ventral thecal sac at L2-3, similar to prior MR from 06/15/2017. 4. No osseous neural foraminal narrowing. Electronically signed by: Tino Wang M.D. 08/04/2017 8:01 PM Dictated Date/Time: 08/04/2017 7:56 PM ABD/PELVIS IV CONTRAST ONLY CLINICAL HISTORY: 71 years-old Female presenting with lower back pain and diffuse abd pain . TECHNIQUE: Multidetector CT of the abdomen and pelvis was performed after the administration of intravenous contrast. IV contrast: 116 mL of Optiray 320. A dose lowering technique was used consistent with the principles of ALARA (as low as reasonably achievable). COMPARISON: 01/06/2017. CT DOSE (mGy.cm): The estimated cumulative dose is 241.[address] lumbar spine. FINDINGS: Political Advisor topogram: Posterior lumbar fusion hardware. Lung bases: Lung bases clear. Normal heart size. Coronary artery calcification. No pericardial or pleural effusion. Liver: Normal morphology. No liver lesion. Patent hepatic vasculature. Biliary: Prominence of intrahepatic bile ducts likely related to a reservoir effect in a postcholecystectomy state. Gallbladder surgically absent. Pancreas: Moderate parenchymal atrophy. Persistent pancreatic ductal dilatation with the pancreatic duct measuring 3 mm in the tail, unchanged. No gross evidence of a pancreatic mass. No parenchymal calcifications. Spleen: Normal. Adrenal glands: Normal. Kidneys and ureters: Nonobstructing 11 mm calculus in the interpolar region of the left kidney. Multiple hypodensities in the kidneys bilaterally likely cysts though many too small to characterize. Focal cortical irregularity in the anterior interpolar region of the right kidney may represent scarring from prior infarction, infection, or trauma. Renal vascular calcification noted. Ureters normal. Bladder: Incompletely evaluated secondary to underdistention. Pelvic organs: Uterus surgically absent. Bowel: Normal. No bowel obstruction. Peritoneal cavity: No free fluid or intraperitoneal gas. Vasculature: Ectasia of the infrarenal abdominal aorta measuring up to 2.5 cm in transverse dimension, unchanged from prior. Extensive atherosclerotic disease including the origins and courses of several of the major branch vessels. Apparent occlusion of the femoral-femoral bypass graft, as on prior exam. Lymph nodes: No enlarged lymph nodes in the abdomen or pelvis. Abdominal wall: Minimal infiltration in the midline lower abdomen may represent sites of injection. Few prominent collateral vessels in the abdominal wall including a varicosity that drains into the left superficial femoral vein. Musculoskeletal: Lumbar fusion hardware. Degenerative changes of the lumbar spine. Laminectomy defects. Please see separately dictated CT of the lumbar spine. IMPRESSION: 1. No acute intra-abdominal pathology. 2. Nonobstructing left millimeter calculus in the left kidney. No hydronephrosis. 3. Pancreatic parenchymal atrophy could suggest chronic pancreatitis, although no parenchymal calcifications are noted. Persistent diffuse pancreatic ductal dilatation, unchanged since prior exam. Allowing for the single phase examination, no evidence of an obstructing pancreatic mass. Ductal dilatation could be compatible with chronic pancreatitis. 4. Chronically occluded femoral femoral bypass graft. Electronically signed by: Tino Wang M.D. 08/04/2017 7:54 PM Dictated Date/Time: 08/04/2017 7:45 PM Laboratory Results 08/04/17 18:35 Red Blood Count 4.62, Mean Corpuscular Volume 89.0, Mean Corpuscular Hemoglobin 32.3, Mean Corpuscular Hemoglobin Concent 36.3, Mean Platelet Volume 10.1, Neutrophils (%) (Auto) 66.8, Lymphocytes (%) (Auto) 24.7, Monocytes (%) (Auto) 6.9, Eosinophils (%) (Auto) 1.3, Basophils (%) (Auto) 0.2, Neutrophils # (Auto) 6.29, Lymphocytes # (Auto) 2.32, Monocytes # (Auto) 0.65, Eosinophils # (Auto) 0.12, Basophils # (Auto) 0.02 08/04/17 18:35 Test 08/04/17 18:35 White Blood Count 9.41 K/uL (4.8-10.8) Red Blood Count 4.62 M/uL (4.2-5.4) Hemoglobin 14.9 g/dL (12.0-16.0) Hematocrit 41.1 % (37-47) Mean Corpuscular Volume 89.0 fL (80-100) Mean Corpuscular Hemoglobin 32.3 pg (25-34) Mean Corpuscular Hemoglobin Concent 36.3 g/dl (32-36) Platelet Count 257 K/uL (130-400) Mean Platelet Volume 10.1 fL (7.4-10.4) Neutrophils (%) (Auto) 66.8 % Lymphocytes (%) (Auto) 24.7 % Monocytes (%) (Auto) 6.9 % Eosinophils (%) (Auto) 1.3 % Basophils (%) (Auto) 0.2 % Neutrophils # (Auto) 6.29 K/uL (1.4-6.5) Lymphocytes # (Auto) 2.32 K/uL (1.2-3.4) Monocytes # (Auto) 0.65 K/uL (0.11-0.59) Eosinophils # (Auto) 0.12 K/uL (0-0.5) Basophils # (Auto) 0.02 K/uL (0-0.2) RDW Standard Deviation 45.2 fL (36.4-46.3) RDW Coefficient of Variation 13.9 % (11.5-14.5) Immature Granulocyte % (Auto) 0.1 % Immature Granulocyte # (Auto) 0.01 K/uL (0.00-0.02) Urine Color YELLOW Urine Appearance CLEAR (CLEAR) Urine pH 8.5 (4.5-7.5) Urine Specific Buckhorn 1.009 (1.000-1.030) Urine Protein NEG (NEG) Urine Glucose (UA) NEG (NEG) Urine Ketones NEG (NEG) Urine Occult Blood TRACE (NEG) Urine Nitrite NEG (NEG) Urine Bilirubin NEG (NEG) Urine Urobilinogen NEG (NEG) Urine Leukocyte Esterase NEG (NEG) Urine WBC (Auto) 1-5 /hpf (0-5) Urine RBC (Auto) 5-10 /hpf (0-4) Urine Hyaline Casts (Auto) 1-5 /lpf (0-5) Urine Epithelial Cells (Auto) 10-20 /lpf (0-5) Urine Bacteria (Auto) NEG (NEG) Anion Gap 6.0 mmol/L (3-11) Estimated GFR () 108.6 Estimated GFR (Non- 93.7 BUN/Creatinine Ratio 25.5 (10-20) Calcium Level 9.2 mg/dl (8.5-10.1) Total Bilirubin 0.2 mg/dl (0.2-1) Direct Bilirubin mg/dl (0-0.2) Aspartate Amino Transf (AST/SGOT) 15 U/L (15-37) Alanine Aminotransferase (ALT/SGPT) 44 U/L (12-78) Alkaline Phosphatase 90 U/L (45-117) Total Protein 6.5 gm/dl (6.4-8.2) Albumin 3.2 gm/dl (3.4-5.0) Lipase 220 U/L (73-393) Chemistry Specimen Hemolysis Laboratory results per my review. Medications Administered Medications (Trade) Dose Ordered Sig/Mila Route Start Time Stop Time Status Last Admin Dose Admin Sodium Chloride 500 ml @ 999 mls/hr Q31M STAT IV 08/04/17 18:12 08/04/17 18:42 DC 08/04/17 18:26 999 MLS/HR Ondansetron HCl (Zofran Inj) 4 mg NOW STAT IV 08/04/17 18:12 08/04/17 18:13 DC 08/04/17 18:27 4 MG Morphine Sulfate (MoRPHine SULFATE INJ) 4 mg NOW STAT IV 08/04/17 18:12 08/04/17 18:13 DC 08/04/17 18:26 4 MG Prednisone (PredniSONE TAB) 20 mg NOW STAT PO 08/04/17 20:43 08/04/17 20:44 DC 08/04/17 20:51 20 MG ED Course ED COURSE: Vital signs were reviewed and showed hypertensive. The patients medical record was reviewed The above diagnostic studies were performed and reviewed. ED treatments and interventions as stated above. 1800: The patient was evaluated in room C11B. A complete history and physical examination was performed. 1811: Morphine sulfate 4 mg IV, Zofran 4 mg IV, NSS 500 ml @ 999 mls/hr IV 2030: I updated the patient. 2042: Prednisone 20 mg PO 2048: Upon reevaluation, the patient is awake and talking. I discussed my findings with the patient and she understands and agrees with the treatment plan. Based on the patients age, coexisting illnesses, exam and lab findings the decision to treat as an outpatient was made. The patient remained stable while under my care. The patient appeared well at the time of discharge. Medical Decision Differential diagnoses includes but is not limited to lumbar radiculopathy, muscle strain, facture, cauda equina, mass, and disc herniation. Patient is a 71-year-old female that presents to ER for left lower back pain. This pain radiates into her left gluteus. She otherwise neurologically intact with the exception of no plantar dorsiflexion in left lower extremity which is old. She also complains of chronic abdominal pain. CBC along with BMP, LFTs, bilirubin lipase is unremarkable. UA was negative. Patient was given morphine with improvement of her pain. CT of her abdomen and pelvis was unremarkable. Patient was updated in regards to her findings. CT lumbar spine was unchanged. She was discharged follow-up with PCP and given small dose of steroids for sciatica. Discussed with Pt concerning signs and symptoms to watch out for. Pt was instructed to follow up with their PCP and discussed with the patient their option to return to the ED at anytime for persistent or worsening symptoms. The appropriate anticipatory guidance and out-patient management, including indications for return to the emergency department, were explained at length to the patient and understood. Medication Reconcilliation Current Medication List: was personally reviewed by me Blood Pressure Screening Patient's blood pressure: Elevated blood pressure Blood pressure disposition: Elevated BP felt to be situational Impression Primary Impression: Back pain Additional Impression: Sciatica Scribe Attestation The scribe's documentation has been prepared under my direction and personally reviewed by me in its entirety. I confirm that the note above accurately reflects all work, treatment, procedures, and medical decision making performed by me. Departure Information Dispostion Home / Self-Care Prescriptions Prednisone (Prednisone) 20 Mg Tab 1 TAB PO DAILY for 2 Days, #2 TAB Prov: Magdiel Taveras, DO 08/04/17 Referrals Yin Higgins PA-C Forms HOME CARE DOCUMENTATION FORM, IMPORTANT VISIT INFORMATION Patient Instructions Back Pain - [facility], [facility] Additional Instructions Please follow up with your primary care doctor with in the next 24 hours. Any worsening of your symptoms, please return to the ED immediately. This includes any fevers greater than 100.4, worsening pain, inability to walk, numbness or weakness in her legs, chest pain, shortness breath, persistent nausea, vomiting , unable to eat or drink, or any other concerning signs or symptoms from your standpoint. You were given medications during this visit that will inhibit your ability to drive, operate machinery and work. Please do NOT drive, operate machinery, drink alcohol or work for the next 12hrs. Please take steroids as described but monitor your blood sugars closely. Problem Qualifiers Primary Impression: Back pain Back pain location: low back pain Chronicity: unspecified Back pain laterality: left Sciatica presence: with sciatica Sciatica laterality: sciatica of left side Qualified Codes: M54.42 - Lumbago with sciatica, left side Additional Impression: Sciatica Laterality: left Qualified Codes: M54.32 - Sciatica, left side
[2017-08-22] MEDS ORDERED: INSDGI SC (11:16)
[2017-08-22] MEDS ORDERED: PREG1CAP34 PO (11:16)
[2017-08-22] MEDS ORDERED: LINA1CAP PO (11:16)
[2017-08-22] MEDS ORDERED: DILT120C99 PO (11:16)
[2017-08-26] MEDS ORDERED: MECL1TAB42 PO (11:24)
[2017-08-26] MEDS ORDERED: TRAZ100T29 PO (11:24)
[2017-08-26] MEDS ORDERED: CYCL0.052 OPB (11:24)
[2017-08-26] MEDS ORDERED: DULO60CA44 PO (11:24)
[2017-08-26] MEDS ORDERED: LINA72CA PO (11:24)
[2017-08-26] MEDS ORDERED: WARF4TAB8 PO (11:24)
[2017-08-26] MEDS ORDERED: LEVA45AE INH (11:24)
[2017-08-26] MEDS ORDERED: LBT/100 PO (11:24)
[2017-08-26] MEDS ORDERED: IPRA1AER2 INH (11:24)
[2017-08-26] MEDS ORDERED: EZET10TA63 PO (11:24)
[2017-08-26] MEDS ORDERED: DILT-113 PO (11:24)
[2017-08-26] MEDS ORDERED: PREG1CAP70 PO (11:24)
[2017-08-26] MEDS ORDERED: SENN-61 PO (11:24)
== END 2017-08-04 20:59 | disposition home or self-care (01) ==
LOC: C.EDB 17:21 → C.EDC 20:59
DX: M54.42 Lumbago with sciatica, left side (principal); R10.9 Unspecified abdominal pain; J45.909 Unspecified asthma, uncomplicated; J44.9 Chronic obstructive pulmonary disease, unspecified; E11.9 Type 2 diabetes mellitus without complications; Z86.73 Personal history of transient ischemic attack (TIA), and cerebral infarction without residual deficits; F17.200 Nicotine dependence, unspecified, uncomplicated; Z79.82 Long term (current) use of aspirin; Z79.84 Long term (current) use of oral hypoglycemic drugs; Z79.4 Long term (current) use of insulin; Z83.3 Family history of diabetes mellitus; Z82.49 Family history of ischemic heart disease and other diseases of the circulatory system

== ENCOUNTER → 2017-08-08 | Outpatient (CLI) | payer OTHER ==
[~2017-08-08] MED LIST changes: -APR25 PO; +ASPI325T45 PO; +ATV5X PO; +CYAN10005 PO; +CYCL0.052 OPB; +CYM60 PO; +DILT-113 PO; +DILT120C99 PO; -DILT180C50 PO; +DOXE10CA PO; +DULO60CA44 PO; +EZET10TA63 PO; +FLUT0.15 NAE; -GLCSR10 PO; +GLIP1TAB85 PO; +INSDGI SC; +LBT/100 PO; -LBT100 PO; +LEVA45AE INH; +LINA1CAP PO; +LINA72CA PO; -LINACLOTIDE PO; +LPT40 PO; +METF500T5 PO; +NVLGI/PEN SQ; +OXYC-164 PO; +PREG1CAP34 PO
== END | disposition home or self-care (01) ==
LOC: C.PATHSPEC 10:41
PROVIDERS: ATTEND Urology
DX: R31.9 Hematuria, unspecified (principal)

== ENCOUNTER 2017-09-08 19:19 | Emergency (ER) | payer OTHER ==
[~2017-09-08] VITALS: Ht 160 cm; Wt 56.0 kg
[~2017-09-08 19:19] MED LIST changes: -CYCL0.052 OP; -CYM60 PO; -DILT120C99 PO; -DOXE10CA PO; -DPH/ PO; -FURO20TA PO; -LINA1CAP PO; -LPT40 PO; -METF500T5 PO; -OXYC-164 PO; -PREG1CAP34 PO
[2017-09-08 19:30] VITALS: TEMP 36.8; Ht 160 cm; Wt 56.0 kg
[2017-09-08] MEDS ORDERED: MoRPHine SULFATE 4 MG/ML 1 ML CARP\\VIAL IV STA (20:11)
[2017-09-08] MEDS ORDERED: ONDANSETRON INJ 2 MG/ML 2 ML VIAL IV STA (20:11)
[2017-09-08 20:22] LABS: BASO % 0.2 %; BASO ABS # 0.02 K/uL (0-0.2); COMPLETE YES; EOS % 1.5 %; HEMATOCRIT 38.6 % (37-47); IG% 0.2 %; LYMPH % 21.8 %; MEAN CELL VOLUME 89.6 fL (80-100); MEAN CORPUSCULAR HEMOGLOBIN 31.8 pg (25-34); MEAN CORPUSCULAR HGB CONC 35.5 g/dl (32-36); MEAN PLATELET VOLUME 9.9 fL (7.4-10.4); MONO % 8.2 %; NEUT % 68.1 %; PLATELET COUNT 302 K/uL (130-400); RED BLOOD COUNT 4.31 M/uL (4.2-5.4); WHITE BLOOD COUNT 9.62 K/uL (4.8-10.8)
[2017-09-08 20:33] LABS: ALT/SGPT 39 U/L (12-78); BLOOD UREA NITROGEN 18 mg/dl (7-18); BUN/CREATININE RATIO 34.8 (10-20); CARBON DIOXIDE 31 mmol/L (21-32); CHLORIDE 105 mmol/L (98-107); CREATININE 0.53 mg/dl (0.60-1.20); GLUCOSE 139 mg/dl (70-99); POTASSIUM 3.5 mmol/L (3.5-5.1); SODIUM 141 mmol/L (136-145)
[2017-09-08 20:36] LABS: ALKALINE PHOSPHATASE 85 U/L (45-117); AST/SGOT 18 U/L (15-37)
[2017-09-08 21:12] LABS: URINE APPEARANCE CLEAR (CLEAR); URINE BILIRUBIN NEG (NEG); URINE COLOR YELLOW; URINE EPITHELIAL CELL AUTO 20-30 /lpf (0-5); URINE NITRITE NEG (NEG); URINE SPECIFIC GRAVITY 1.019 (1.000-1.030); UROBILINOGEN NEG (NEG)
[2017-09-08 21:14] LABS: MANUAL MICROSCOPIC REQUIRED? NO; REVIEW REQ? NO
[2017-09-08 21:16] LABS: SULFASALICYLIC ACID POS (NEG)
[2017-09-08 21:20] VITALS: BP 158/77; PULSE 63; O2SAT 98
--- NOTE | 2017-09-08 22:00 | EMERGENCY ROOM VISIT NOTE ---
History Report prepared by Stacy: Dolores Strickland Under the Supervision of: Dr. Robbie Mills M.D. First contact with patient: 20:02 Chief Complaint: KIDNEY STONE Stated Complaint: KIDNEY STONE/PANCREATITIS History of Present Illness The patient is a 71 year old female who presents to the Emergency Room with complaints of abdominal pain beginning 6 days ago, which she rates at a 10/10. The patient reports that her pain also radiates to her back. She states that she has been vomiting and has had blood in her urine. The patient denies having fevers and diarrhea. She states that she has been dealing with this pain for 2 years. She reports a history of chronic back pain as well as episodes of pancreatitis. She was told by GI doctor at one point that she may need a pancreatic stent. She reports that she takes 10 mg of Oxycodone, but that this is not helping her current pain. Source of History: patient Onset: 6 days ago Position: abdomen Symptom Intensity: rated at a 10/10 Timing: constant Associated Symptoms: + vomiting, No fevers, No diarrhea Note: additional symptom: blood in urine Review of Systems See HPI for pertinent positives & negatives. A total of 10 systems reviewed and were otherwise negative. Past Medical & Surgical Medical Problems: (1) Asthma (2) Chronic obstructive lung disease (3) Community acquired pneumonia (4) Diabetes mellitus (5) Gait difficulty (6) GI bleed (7) Pneumonia (8) TIA (transient ischemic attack) Family History Cancer Diabetes mellitus Gallbladder disease Heart disease Hypertension Social History Smoking Status: Current Every Day Smoker Alcohol Use: occasionally Drug Use: none Marital Status: Housing Status: lives with family Occupation Status: retired Current/Historical Medications Scheduled Aspirin (Aspirin), 325 MG PO DAILY Cyclosporine (Ophth) (Restasis), 1 DROP OPB BID Diltiazem Hcl Ext Rel (Tiazac), 180 MG PO BID Ezetimibe (Zetia), 10 MG PO DAILY Fluticasone Propionate (Nasal) (Flonase Allergy Relief), 1 SPRAY DARRYL DAILY Glipizide Xl (Glucotrol Xl), 10 MG PO DAILY Insulin Aspart (Novolog Flexpen), SQ UD Insulin Glargine (Lantus Solostar), 38 UNITS SC QAM Insulin Glargine (Lantus), 10 UNITS SC QPM Labetalol Hcl (Normodyne), 50 MG PO BID Linaclotide (Linzess), 1 CAP PO DAILY Omeprazole (Prilosec), 20 MG PO BID Pregabalin (Lyrica), 150 MG PO BID Senna (Senokot), 1 TAB PO QID Trazodone Hcl (Trazodone), 1.25 MG PO DAILY Warfarin Sod (Jantoven), 4 MG PO DIRECTED Scheduled PRN Ipratropium-Albuterol (Combivent Respimat), 1 PUFFS INH QID PRN for Shortness of Breath Levalbuterol Tartrate (Levalbuterol Tartrate Hfa), 2 PUFF INH Q6H PRN for Shortness of Breath Lorazepam (Lorazepam), 0.5 MG PO BID PRN for Anxiety Meclizine Hcl (Meclizine Hcl), 1 TAB PO TID PRN for VERTIGO Nitroglycerin (Nitrostat), 0.4 MG UT UD PRN for Chest Pain Oxybutynin Chloride (Oxybutynin Chloride), 5 MG PO UD PRN for Bladder pain Oxycodone Immediate Rel Tab (Roxicodone Ir), 10 MG PO Q6H PRN for Pain Valacyclovir Hcl (Valtrex), 1 GM PO UD PRN for Cold Sores Allergies Coded Allergies: Calcium Carbonate (Verified Allergy, Intermediate, OYSTER SHELL-ITCHY, HIVES, 09/08/17) Nylon (Verified Allergy, Intermediate, HIVES, 09/08/17) Adhesives (Verified Allergy, Mild, RED ITCHY RASH, NYLON = ITCHY, 09/08/17 ) Animal Dander (Verified Allergy, Unknown, ASTHMA, 09/08/17) Calcium (Verified Allergy, Unknown, ITCHY, 09/08/17) Montelukast (Verified Allergy, Unknown, ., 09/08/17) Phenobarbital (Verified Allergy, Unknown, DOESN'T REMEMBER WHAT HAPPENED, 09/08/17) Shellfish (Verified Allergy, Unknown, HIVES, 09/08/17) Sulfa Antibiotics (Verified Allergy, Unknown, HIVES/RASH TO SULFA DRUGS, 09/08/17) Amoxicillin (Verified Adverse Reaction, Mild, DIARRHEA, 09/08/17) Egg (Verified Adverse Reaction, Unknown, SORE THROAT, 09/08/17) Levofloxacin (Verified Adverse Reaction, Unknown, TOOK BREATH AWAY, ) INFO FROM [facility] [place] Uncoded Allergies: METAL (Adverse Reaction, Intermediate, itchy raw skin burning, 10/29/16) Physical Exam Vital Signs Date Time Temp Pulse Resp B/P (MAP) Pulse Ox O2 Delivery O2 Flow Rate FiO2 09/08/17 21:20 63 16 158/77 98 09/08/17 19:30 36.8 94 18 152/69 95 Room Air Physical Exam Constitutional: Vital signs reviewed. Eyes: Pupils are equal round reactive to light. Conjunctiva are noninjected. ENT: Pharynx is clear without erythema or exudate. Mucous membranes are moist. Neck supple without meningeal signs. Respiratory: Clear to auscultation bilaterally. Breath sounds are equal bilaterally. Cardiovascular: Regular rate and rhythm. No rubs or gallops. GI: Soft, nondistended. Mild supraumbilical tenderness. No guarding. Bowel sounds are present. Musculoskeletal: No peripheral edema. No CVA tenderness. Integumentary: No cyanosis. Neurological: The patient is awake and alert. No focal deficits. Psychiatric: Normal affect. Medical Decision & Procedures Laboratory Results 09/08/17 20:04 Red Blood Count 4.31, Mean Corpuscular Volume 89.6, Mean Corpuscular Hemoglobin 31.8, Mean Corpuscular Hemoglobin Concent 35.5, Mean Platelet Volume 9.9, Neutrophils (%) (Auto) 68.1, Lymphocytes (%) (Auto) 21.8, Monocytes (%) (Auto) 8.2, Eosinophils (%) (Auto) 1.5, Basophils (%) (Auto) 0.2, Neutrophils # (Auto) 6.55, Lymphocytes # (Auto) 2.10, Monocytes # (Auto) 0.79, Eosinophils # (Auto) 0.14, Basophils # (Auto) 0.02 09/08/17 20:04 Test 09/08/17 20:04 09/08/17 20:56 White Blood Count 9.62 K/uL (4.8-10.8) Red Blood Count 4.31 M/uL (4.2-5.4) Hemoglobin 13.7 g/dL (12.0-16.0) Hematocrit 38.6 % (37-47) Mean Corpuscular Volume 89.6 fL (80-100) Mean Corpuscular Hemoglobin 31.8 pg (25-34) Mean Corpuscular Hemoglobin Concent 35.5 g/dl (32-36) Platelet Count 302 K/uL (130-400) Mean Platelet Volume 9.9 fL (7.4-10.4) Neutrophils (%) (Auto) 68.1 % Lymphocytes (%) (Auto) 21.8 % Monocytes (%) (Auto) 8.2 % Eosinophils (%) (Auto) 1.5 % Basophils (%) (Auto) 0.2 % Neutrophils # (Auto) 6.55 K/uL (1.4-6.5) Lymphocytes # (Auto) 2.10 K/uL (1.2-3.4) Monocytes # (Auto) 0.79 K/uL (0.11-0.59) Eosinophils # (Auto) 0.14 K/uL (0-0.5) Basophils # (Auto) 0.02 K/uL (0-0.2) RDW Standard Deviation 45.7 fL (36.4-46.3) RDW Coefficient of Variation 13.8 % (11.5-14.5) Immature Granulocyte % (Auto) 0.2 % Immature Granulocyte # (Auto) 0.02 K/uL (0.00-0.02) Anion Gap 5.0 mmol/L (3-11) Est Creatinine Clear Calc Drug Dose 79.3 ml/min Estimated GFR () 109.9 Estimated GFR (Non- 94.9 BUN/Creatinine Ratio 34.8 (10-20) Calcium Level 9.0 mg/dl (8.5-10.1) Total Bilirubin 0.1 mg/dl (0.2-1) Direct Bilirubin < 0.1 mg/dl (0-0.2) Aspartate Amino Transf (AST/SGOT) 18 U/L (15-37) Alanine Aminotransferase (ALT/SGPT) 39 U/L (12-78) Alkaline Phosphatase 85 U/L (45-117) Total Protein 6.4 gm/dl (6.4-8.2) Albumin 3.2 gm/dl (3.4-5.0) Lipase 201 U/L (73-393) Urine Color YELLOW Urine Appearance CLEAR (CLEAR) Urine pH 8.0 (4.5-7.5) Urine Specific [place] 1.019 (1.000-1.030) Urine Protein 1+ (NEG) Urine Glucose (UA) NEG (NEG) Urine Ketones NEG (NEG) Urine Occult Blood 2+ (NEG) Urine Nitrite NEG (NEG) Urine Bilirubin NEG (NEG) Urine Urobilinogen NEG (NEG) Urine Leukocyte Esterase SMALL (NEG) Urine WBC (Auto) 1-5 /hpf (0-5) Urine RBC (Auto) >30 /hpf (0-4) Urine Hyaline Casts (Auto) 1-5 /lpf (0-5) Urine Epithelial Cells (Auto) 20-30 /lpf (0-5) Urine Bacteria (Auto) NEG (NEG) Laboratory results as reviewed by me. Medications Administered Medications (Trade) Dose Ordered Sig/Mila Route Start Time Stop Time Status Last Admin Dose Admin Morphine Sulfate (MoRPHine SULFATE INJ) 4 mg ONE STAT IV 09/08/17 20:11 09/08/17 20:12 DC 09/08/17 20:26 4 MG Ondansetron HCl (Zofran Inj) 4 mg NOW STAT IV 09/08/17 20:11 09/08/17 20:12 DC 09/08/17 20:26 4 MG ED Course 2004: The patient was evaluated in room C1B. A complete history and physical exam was performed. 2010: Ordered Zofran Inj 4 mg IV, Morphine Sulfate 4 mg IV. 2039: The patient reports feeling better. 2100: Upon reevaluation, the patient appeared to have improvement of her symptoms. I discussed tonight's findings with her. She verbalized agreement of the treatment plan. She was discharged home. Medical Decision This is a 71-year-old female who presents with abdominal and back pain. Differential diagnosis includes chronic pain syndrome, pancreatitis, renal colic , UTI, duodenitis. I did perform a limited focused review of portions of the patient's old chart on the electronic medical record. The patient was seen by pain management on August 22 due to back pain. She was seen here August 04 for back and abdominal pain. She had a CT of her abdomen which showed a non- obstructing 11 mm left calculus in the kidney and chronic pancreatitis. I did evaluate the patient as noted above. The patient has a chronic history of abdominal and back pain. She has been dealing with abdominal pain for the past 2 years. She states, worse over the past 6 days. She did have a CAT scan at [place] 2 days ago but does not know the results. We did attempt to get the results with the CAT scan was not red. She did recently have a CAT scan here in July which did not show any acute process. She had an intrarenal stone at this time. I did not feel it was indicated to do another CAT scan given she just had one. She has no significant tenderness on exam to suggest an acute surgical process. IV access was established. I did treat her with IV morphine and Zofran. I did order and personally review the patient's urinalysis as described above. I did order and review the patient's blood work as noted in the electronic medical record. Her blood work is unremarkable. I did reassess the patient. She is feeling much better. I did discuss the test results with the patient. I did recommend she follow up closely with her doctor for further evaluation and resulting of her CT scan. She was discharged in good condition. Medication Reconcilliation Current Medication List: was personally reviewed by me Blood Pressure Screening Patient's blood pressure: Elevated blood pressure Blood pressure disposition: Referred to PCP Impression Primary Impression: Chronic abdominal pain Additional Impression: Chronic back pain Scribe Attestation The scribe's documentation has been prepared under my direct and personally reviewed by me in its entirety. I confirm that the note above accurately reflects all work, treatment, procedures, and medical decision making performed by me. Departure Information Dispostion Home / Self-Care Referrals Reuben Herring M.D. (PCP) Forms HOME CARE DOCUMENTATION FORM, IMPORTANT VISIT INFORMATION Patient Instructions ED Abdominal Pain Unkn Cause, My [facility] Additional Instructions You have been examined and treated today on an emergency basis only. This is not a substitute for, or an effort to provide, complete comprehensive medical care. It is impossible to recognize and treat all injuries or illnesses in a single emergency department visit. It is therefore important that you follow up closely with your physician. Call as soon as possible for an appointment. Return for worsening symptoms or if you develop fever, vomiting, or any other concerning symptoms. Problem Qualifiers Additional Impression: Chronic back pain Back pain location: back pain in unspecified location Back pain laterality: unspecified Qualified Codes: M54.9 - Dorsalgia, unspecified; G89.29 - Other chronic pain
== END 2017-09-08 21:27 | disposition home or self-care (01) ==
LOC: C.EDB 19:21 → C.EDC 21:27
DX: R10.84 Generalized abdominal pain (principal); M54.9 Dorsalgia, unspecified; J45.909 Unspecified asthma, uncomplicated; J44.9 Chronic obstructive pulmonary disease, unspecified; E11.9 Type 2 diabetes mellitus without complications; G45.9 Transient cerebral ischemic attack, unspecified; Z83.3 Family history of diabetes mellitus; Z82.49 Family history of ischemic heart disease and other diseases of the circulatory system; F17.200 Nicotine dependence, unspecified, uncomplicated; Z79.82 Long term (current) use of aspirin; Z79.4 Long term (current) use of insulin; Z79.01 Long term (current) use of anticoagulants